=== PATIENT | female | born 1945 | race Caucasian/White ===

== ENCOUNTER 2020-03-10 14:17 | Outpatient (CLI) | payer MEDICARE, SELFPAY ==
--- NOTE | 2020-03-10 | ECHO_ITS ---
Patient Info Name: Lorraine Cedillo Age: 74 years : 1945 Gender: Female Ht: 61 in Wt: 115 lbs BSA: 1.50 m2 HR: 60 bpm BP: 113 / 68 mmHg Heart Rhythm: Sinus Rhythm Technical Quality: Good Exam Date: 03/10/2020 2:42 PM Exam Location: [facility] Pulmonary Patient Status: Outpatient Admit Date: 03/10/2020 Staff Ordering Physician: Wilfredo Mcgee MD Extender: Paulino Delacruz RDCS Attending Provider: Wilfredo Mcgee MD Referring Physician: Arely BENDER; Exam Type: CA echo doppler color flow Study Info Indications R01.1 - Cardiac murmur, unspecified Complete two-dimensional, color flow and Doppler transthoracic echocardiogram is performed. Strain analysis performed. History/Risk Factors Murmur. Summary 1. Left ventricular chamber dimension is normal. 2. Left ventricular systolic function is normal, estimated at 60-65%. 3. The left ventricular diastolic function is normal. 4. E/e' 9 is minimally elevated. 5. Global longitudinal strain is normal at -19.7%. 6. Left atrial chamber dimension is mildly enlarged. 7. There is mild aortic valve sclerosis. 8. There is trace mitral valve regurgitation. 9. There is trace tricuspid valve regurgitation. Left Ventricle E/e' 9 is minimally elevated. Global longitudinal strain is normal at -19.7%. Left ventricular chamber dimension is normal. Left ventricular systolic function is normal, estimated at 60-65%. The left ventricular diastolic function is normal. Right Ventricle Right ventricular chamber dimension is normal. Right ventricular systolic function is normal. Left Atria Left atrial chamber dimension is mildly enlarged. Right Atria Right atrial chamber dimension is normal. Aortic Valve The aortic valve is trileaflet. There is mild aortic valve sclerosis. There is no aortic valve stenosis. There is no aortic valve regurgitation. Pulmonic Valve There is no pulmonic regurgitation. Mitral Valve There is no mitral valve stenosis. There is trace mitral valve regurgitation. Tricuspid Valve There is trace tricuspid valve regurgitation. RVSP is not calculated due to an inadequate TR jet. Pericardium/Pleural There is no pericardial effusion. Inferior Vena Cava Normal inferior vena cava with >50% collapse upon inspiration consistent with normal right atrial pressure, 5 mmHg. Aorta The aortic root size at the sinus of Valsalva is normal. Left Ventricular Outflow Tract Name Value Normal LVOT 2D LVOT Diameter 1.9 cm LVOT Doppler LVOT Peak Gradient 5 mmHg LVOT Mean Gradient 3 mmHg LVOT VTI 26 cm LVOT VTI/AV VTI Ratio 0.6 LVOT Stroke Volume 70 ml LVOT CO 4.4 l/min LVOT CI 2.9 l/min/m2 Mitral Valve Name Value Normal
== END 2020-03-10 14:18 | disposition home or self-care (01) ==
PROVIDERS: PCP Internal Medicine; Visit Provider Internal Medicine
DX: R10.11 Right upper quadrant pain (principal)
CPT/HCPCS: 93306

== ENCOUNTER 2020-07-19 15:16 | Outpatient (CLI) | payer MEDICARE, SELFPAY ==
--- NOTE | ~2020-07-19 | CT_ITS ---
EXAMINATION: CT abdomen pelvis w con EXAM DATE: 07/19/2020 15:13 INDICATION: R10.13 - Epigastric pain . Pancreatic and breast cancer. TECHNIQUE: Spiral CT of the abdomen and pelvis was performed following intravenous injection of 100 m L Omnipaque 350. Axial, coronal and sagittal images were reviewed. The dose-length product (DLP) fo r this examination was 201.72 mGy-cm. The exposure was tailored according to patient size (auto mA e xposure control), and iterative reconstruction (ASIR) was used as additional dose reduction technique . Comparison is made to prior examination from 07/08/2014. 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 There is hepatosplenomegaly with dilated portal vein which cou ld indicate portal hypertension. No portal venous thrombosis. Possible cirrhosis. Spleen is normal in size. There is a pancreatic duct stent. Nonspecific soft tissue density inflammation likely related to patient's pancreatic cancer/treatment. No focal masslike region, no definite recurrence. There are cholecystectomy clips. Portal and splenic veins are patent. Kidneys enhance symmetrically. There is no hydronephrosis. Fibroid uterus. The bladder is unremarkable. There is no retroperitoneal or pelvic lymphadenopathy. There is mild scattered arteriosclerotic disease. The appendix is normal. The stomach and small bowel are unremarkable. There is moderate amount of c olonic stool. There is mild sigmoid colonic diverticulosis. There is no adjacent inflammatory change to suggest diverticulitis. No free intraperitoneal gas. Trace right pleural effusion. Right lower lobe subsegmental atelectasis. The lung bases are unremarkable. There are no osteoblastic or osteo lytic lesions identified. Left hip lag screws. IMPRESSION: 1. Inflammation in mesentery, retroperitoneum could be treatment related change but recommend checki ng amylase/lipase to evaluate possibility of acute pancreatitis. Pancreatic stent in position. 2. Hepatomegaly. Probable portal hypertension and cirrhosis. 3. Right basilar subsegmental atelectasis, trace right pleural effusion. 4. Fibroids. Reviewed, dictated and finalized at location B. 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 Inflammation in mesentery, retroperitoneum could be treatment related sellers e but recommend checking amylase/lipase to evaluate possibility of acute pancre atitis. Pancreatic stent in position. 2. Hepatomegaly. Probable portal hypertension and cirrhosis. 3. Right basilar subsegmental atelectasis, trace right pleural effusion. 4. Fibroids.
[2020-07-19 16:00] LABS: Basophils Percent Auto 0.6 % (0.2-1.2); Eosinophils Absolute Auto 0.2 K/mm3 (0-0.3); Eosinophils Percent Auto 2.4 % (0-4.4); Hematocrit 32.4 % (37.0-47.0); Hemoglobin 10.7 g/dL (12.0-15.0); Immature Granulocyte Absolute 0.02 K/mm3 (0.00-0.031); Immature Granulocyte Percent A 0.3 % (0-0.5); Lymphocytes Absolute Auto 1.01 K/mm3 (0.9-3.2); Lymphocytes Percent Auto 16.3 % (18.3-44.2); Mean Corpuscular Hemoglobin 33.2 pg (26-34); Mean Corpuscular Volume 100.6 fl (80-100); Mean Platelet Volume 10.4 fl (7.4-10.4); Monocytes Absolute Auto 0.6 K/mm3 (0.1-0.6); Neutrophils Absolute Auto 4.4 K/mm3 (1.3-6.7); Neutrophils Percent Auto 71.4 % (45.5-73.1); Platelet Count Result 174 k/mm3 (150-375); Red Blood Count 3.22 M/mm3 (4.2-5.4); White Blood Count 6.2 K/mm3 (4.5-10.0)
[2020-07-19 16:14] LABS: Alanine Aminotransferase 58 U/L (4-35); Albumin Level 3.5 g/dL (3.5-5.1); Alkaline Phosphatase 140 U/L (38-126); Anion Gap 7 mmol/L (8-16); Aspartate Amino Transferase 69 U/L (14-36); Bilirubin,Total 1.7 mg/dL (0.2-1.3); Blood Urea Nitrogen 10 mg/dL (7-17); Carbon Dioxide 30 mmol/L (22-30); Chloride 99 mmol/L (98-107); Estimated Glomerular Filt Rate > 60; Glucose 195 mg/dL (65-105); Potassium 3.5 mmol/L (3.4-5.0); Sodium 136 mmol/L (137-145)
[2020-07-19 16:15] LABS: Add Urine Microscopic? YES; Appearance Urine Clear (Clear); Bilirubin Urine Negative (Negative); Blood Urine Negative (Negative); Color Urine Straw (Yellow); Glucose Urine UA 2+ mg/dL (Negative); Ketones Urine Negative (Negative); Leukocyte Esterase Ur Negative LEU/UL (NEGATIVE); Mucus Urine Rare /lpf; Nitrate Urine Negative (Negative); Protein Urine Negative (Negative); Squamous Epithelial Cell Urine Rare /hpf (Few)
[2020-07-19 16:19] LABS: Specific Grav Ur 1.056 (1.001-1.035)
[2020-07-22 11:38] LABS: Vitamin D 1,25 (OH)2 Total 21 pg/mL (18-72); Vitamin D2 1,25 (OH)2 <8 pg/mL; Vitamin D3 1,25 (OH)2 21 pg/mL
== END 2020-07-19 15:17 | disposition home or self-care (01) ==
PROVIDERS: PCP Internal Medicine; Visit Provider Internal Medicine
DX: R10.13 Epigastric pain (principal); Z79.899 Other long term (current) drug therapy; K43.2 Incisional hernia without obstruction or gangrene; E55.9 Vitamin D deficiency, unspecified; D25.9 Leiomyoma of uterus, unspecified; R16.0 Hepatomegaly, not elsewhere classified
CPT/HCPCS: 36415; 74177; 80053; 81001; 82652; 85025; Q9967

== ENCOUNTER 2021-01-09 07:50 | Observation (INO) | payer MEDICARE, SELFPAY ==
[2021-01-09] VITALS (18 sets, daily range): BP systolic 122–153; BP diastolic 60–92; PULSE 78–106; RESP 14–24; TEMP 36.4–36.8; O2SAT 93–100; BMI 20.7
--- NOTE | ~2021-01-09 | CT_ITS ---
EXAMINATION: CT brain wo con EXAM DATE: 01/09/2021 08:16 INDICATION: Temporary change in awareness. TECHNIQUE: Spiral CT of the head was performed without contrast. Axial, coronal and sagittal images were reviewed. The dose-length product (DLP) for this examination was 908.00 mGy-cm. The exposure w as tailored according to patient size, and iterative reconstruction (ASIR) was used as additional dos e reduction technique. There is no prior study for comparison. FINDINGS: There is no acute intraparenchymal hemorrhage. No evidence of intraparenchymal brain mass lesion. No evidence of acute infarction. Please note that initial head CT has limited sensitivity f or small or acute infarctions. There is mild to moderate periventricular and subcortical hypodensity, nonspecific but probably related to small vessel ischemic disease. There is mild to moderate promi nence of the sulci and ventricles related to cerebral atrophy. There is intracranial carotid arteri osclerosis. There are no extra-axial collections. There is no mass effect or midline shift. Patien t has had bilateral ocular lens surgery. Soft tissue is unremarkable. The visualized sinuses and ma stoid air cells are well aerated. IMPRESSION: 1. No acute intracranial findings. 2. Chronic age related findings. Reviewed, dictated and finalized at location A.
--- NOTE | ~2021-01-09 | XR_ITS ---
EXAMINATION: XR chest 1V EXAM DATE: 01/09/2021 08:21 INDICATION: Shortness of breath. TECHNIQUE: Portable AP frontal chest x-ray was obtained. Comparison is made to prior examination from 08/22/2016. FINDINGS: There is a left-sided portacatheter with intact line. There is ill-defined but large right mid and lower lung zone opacity, most likely pneumonia but please clinically correlate. Recommend one -month follow-up chest x-ray. There are mild bony degenerative changes. There is no pneumothorax susp ected. There are no pleural effusions. There is aortic arteriosclerosis. Cardiomediastinal silhouette is normal. IMPRESSION: Large ill-defined right lung opacity probably developing pneumonia. Clinical correlation and follow-up to resolution indicated. Reviewed, dictated and finalized at location A.
--- NOTE | 2021-01-09 08:00 | ECG_ITS ---
Measurements Intervals [place] Rate: 84 P: 65 PA: 110 QRS: 57 QRSD: 82 T: 13 QT: 375 QTc: 445 Interpretive Statements SINUS RHYTHM WITH SHORT PA INTERVAL ATRIAL AND VENTRICULAR PREMATURE COMPLEXES POSSIBLE LEFT ATRIAL ENLARGEMENT BORDERLINE ST-T WAVE ABNORMALITY- INFERIOR LEADS BASELINE ARTIFACT- II, III, AVF BORDERLINE ECG Electronically Signed On 01-09-2021 10:09:22 CDT by Migel Adams D.O.
[2021-01-09] MEDS: SODIUM CHLORIDE 0.9% IV 1,000 ML 999 ML IV CONT (08:07)
--- NOTE | 2021-01-09 08:21 | ED.GENADULT ---
HPI - General Adult General Chief complaint: Recheck/Abnormal Lab/Rx Stated complaint: unresponsive Time Seen by Provider: 01/09/21 07:51 History of Present Illness HPI narrative: Patient is a 75-year-old female who presents ER with altered mental status. reports that at baseline patient is oriented x3. She went to bed last night and then throughout the night he heard her moaning making noises like she was having a dream. Today he checked on her at 6 AM and she would not wake up he was still making some noises. He splashed water on her face and could not get her to wake up. She denies he cannot get her to the hospital on his own. He then called EMS. Her blood sugar was found to be 18. She was given an infusion of D10 which did get her to wake up but she is still quite altered. Patient can say her name and otherwise appears to be in no distress. She has some coarse lung sounds and had a cough upon arrival. reports she had not had a cough prior to this. Denies any known seizure activity. No previous history of CVA. Related Data Home Medications Medication Instructions Recorded Confirmed biotin 1 mg capsule 1 mg PO DAILY 07/03/19 01/09/21 coenzyme Q10 100 mg capsule 100 mg PO DAILY 07/03/19 01/09/21 latanoprost 0.005 % eye drops 1 drop EACH EYE HS 07/03/19 01/09/21 multivitamin 1 tablet PO DAILY 07/03/19 01/09/21 omega-3 fatty acids 1,000 mg 1,000 mg PO DAILY 07/03/19 01/09/21 capsule lactobacillus combination no.9 4 4,000 cell PO DAILY 02/11/20 01/09/21 billion cell capsule spironolactone 25 mg tablet 25 mg PO BID 02/11/20 01/09/21 turmeric root extract 500 mg 500 mg PO BID 02/11/20 12/29/20 capsule zinc acetate 50 mg (zinc) capsule 50 mg PO DAILY 02/11/20 12/29/20 megestrol 400 mg/10 mL (40 mg/mL) 400 mg PO DAILY 12/29/20 01/09/21 oral suspension diltiazem HCl [Cardizem CD] 120 mg PO DAILY 01/09/21 01/09/21 diphenhydramine HCl 25 mg PO Q6H PRN 01/09/21 01/09/21 ergocalciferol (vitamin D2) 50,000 unit PO WEEKLY 01/09/21 01/09/21 [Vitamin D2] insulin glargine [Lantus Solostar 18 unit SUB-Q DAILY 01/09/21 01/09/21 U-100 Insulin] latanoprost drp 01/09/21 tramadol 100 mg PO Q6H PRN 01/09/21 01/09/21 zinc acetate 50 mg PO BID 01/09/21 01/09/21 Allergies Allergy/AdvReac Type Severity Reaction Status Date / Time ADHESIVE TAPE Allergy Mild Itching Uncoded 01/09/21 07:56 Review of Systems Review of Systems: ROS unobtainable: Yes unobtainable due to medical condition PMFSH Past Medical History Medical History Abdominal pain Benign essential hypertension Bloating Blood infection BMI 20.0-20.9, adult BMI 22.0-22.9, adult Cancer of pancreas Diabetes DM type 2 (diabetes mellitus, type 2) Encounter for Medicare annual wellness exam Encounter for routine adult health examination without abnormal findings Eustachian tube dysfunction Glaucoma Hearing loss Heart murmur Hemoglobin A1c less than 7.0% last a1c was 6. 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 Pancreatic insufficiency Vitamin D deficiency Surgical History Surgical History H/O mastectomy H/O: section Family History Family History Mother Hypertension Family history of diabetes mellitus in first degree relative Diabetes mellitus Father Malignant neoplasm of prostate Social History Social History Smoking status: Never smoker Alcohol intake: never Substance use: never Substance use type: does not use Gender identity (if verbalized by the patient): Female Sexual Orientation (if Verbalized by the Patient): Straight or Heterosexual Spiritual care concerns: No Exam Narrative: Exam Narrative:
[2021-01-09 09:02] LABS: Basophils Percent Auto 0.3 % (0.2-1.2); Hematocrit 32.7 % (37.0-47.0); Hemoglobin 10.8 g/dL (12.0-15.0); Immature Granulocyte Absolute 0.04 K/mm3 (0.00-0.031); Immature Granulocyte Percent A 0.7 % (0-0.5); Lymphocytes Absolute Auto 0.36 K/mm3 (0.9-3.2); Mean Corpuscular Hemoglobin 37.1 pg (26-34); Mean Corpuscular Volume 112.4 fl (80-100); Mean Platelet Volume 10.4 fl (7.4-10.4); Monocytes Absolute Auto 0.3 K/mm3 (0.1-0.6); Monocytes Percent Auto 5.3 % (2.6-8.5); Neutrophils Absolute Auto 5.3 K/mm3 (1.3-6.7); Neutrophils Percent Auto 87.7 % (45.5-73.1); Platelet Count Result 159 k/mm3 (150-375); Red Blood Count 2.91 M/mm3 (4.2-5.4); Red Cell Distribution Width 15.1 % (11.5-14.5)
[2021-01-09 09:10] LABS: Add Urine Microscopic? YES; Appearance Urine Clear (Clear); Bacteria Urine Trace /hpf; Bilirubin Urine Negative (Negative); Blood Urine Negative (Negative); Color Urine Yellow (Yellow); Glucose Urine UA 1+ mg/dL (Negative); Ketones Urine Negative (Negative); Leukocyte Esterase Ur Negative LEU/UL (Negative); Mucus Urine Rare /lpf; Nitrate Urine Negative (Negative); Protein Urine Negative (Negative); RBC Urine 0-2 /hpf (0-2); Specific Grav Ur 1.008 (1.001-1.035); Squamous Epithelial Cell Urine Few /hpf (Few); Urobilinogen Urine Negative mg/dL (<2.0); WBC Urine 0-3 /hpf
[2021-01-09 09:11] LABS: Lactic Acid Reflex 1.2 mmol/L (0.7-2.1)
[2021-01-09 09:23] LABS: Troponin I 0.021 ng/mL (0.000-0.034)
[2021-01-09 09:34] LABS: Anion Gap 7 mmol/L (8-16); Blood Urea Nitrogen 6 mg/dL (7-17); Calcium 9.1 mg/dL (8.4-10.2); Carbon Dioxide 27 mmol/L (22-30); Chloride 103 mmol/L (98-107); Estimated CRCL calculation 45 ml/min; Estimated Glomerular Filt Rate > 60; Glucose 130 mg/dL (65-105); Sodium 137 mmol/L (137-145)
[2021-01-09 09:47] LABS: Glucose Point of Care 107 mg/dl (65-105)
[2021-01-09 10:05] LABS: Creatine Kinase 27 U/L (30-135)
[2021-01-09 11:20] LABS: Glucose Point of Care 170 mg/dl (65-105)
--- NOTE | 2021-01-09 11:53 | ADMGEN ---
This patient, Lorraine Cedillo, was admitted to Medical Room 346-01. Patient/family oriented to hospital policies and general routines including ID bracelet, bed and alarms, visiting hours, pain management, procedures, bathroom and other care routines, personal items, smoking policy, room service/diet, and visiting hours. Information on how to activate the Rapid Response Team has been discussed. Patient/Family are encouraged to report perceived risks to care and to ask questions if they do not understand what they are told or what they should do. Patient in bed with no complaints at this time. Will continue to monitor patient.
--- NOTE | 2021-01-09 17:47 | PM.IMHP ---
H&P: HPI History of Present Illness Date/Time: 01/09/21 17:00 Chief Complaint: Unresponsive. Narrative: This is a 75-year-old female with PMFSH Past Medical History Medical History Abdominal pain Benign essential hypertension Bloating Blood infection BMI 20.0-20.9, adult BMI 22.0-22.9, adult Cancer of pancreas Diabetes DM type 2 (diabetes mellitus, type 2) Encounter for Medicare annual wellness exam Encounter for routine adult health examination without abnormal findings Eustachian tube dysfunction Glaucoma Hearing loss Heart murmur Hemoglobin A1c less than 7.0% last a1c was 6. 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 Pancreatic insufficiency Vitamin D deficiency Surgical History Surgical History H/O mastectomy H/O: section Family History Family History Mother Hypertension Family history of diabetes mellitus in first degree relative Diabetes mellitus Father Malignant neoplasm of prostate Social History Social History Smoking status: Never smoker Alcohol intake: never Substance use: never Substance use type: does not use Gender identity (if verbalized by the patient): Female Sexual Orientation (if Verbalized by the Patient): Straight or Heterosexual Spiritual care concerns: No Meds Home Medications and Allergies Home Medications Medication Instructions Recorded Confirmed Type biotin 1 mg capsule 1 mg PO DAILY 07/03/19 01/09/21 History coenzyme Q10 100 mg capsule 100 mg PO DAILY 07/03/19 01/09/21 History latanoprost 0.005 % eye drops 1 drop EACH EYE HS 07/03/19 01/09/21 History multivitamin 1 tablet PO DAILY 07/03/19 01/09/21 History omega-3 fatty acids 1,000 mg 1,000 mg PO DAILY 07/03/19 01/09/21 History capsule blood sugar diagnostic #100 each 11/10/19 12/29/20 Rx lactobacillus combination no.9 4 4,000 cell PO DAILY 02/11/20 01/09/21 History billion cell capsule spironolactone 25 mg tablet 25 mg PO BID 02/11/20 01/09/21 History turmeric root extract 500 mg 500 mg PO BID 02/11/20 12/29/20 History capsule zinc acetate 50 mg (zinc) capsule 50 mg PO DAILY 02/11/20 12/29/20 History lancets 33 gauge #100 ea 06/14/20 12/29/20 Rx pen needle, diabetic 32 gauge x #100 each 09/14/20 12/29/20 Rx 1/4 duloxetine 60 mg capsule,delayed 60 mg PO DAILY #90 cap 11/23/20 01/09/21 Rx release zolpidem 10 mg tablet 10 mg PO .COMPLEX PRN #30 tablet 12/01/20 01/09/21 Rx megestrol 400 mg/10 mL (40 mg/mL) 400 mg PO DAILY 12/29/20 01/09/21 History oral suspension diltiazem HCl [Cardizem CD] 120 mg PO DAILY 01/09/21 01/09/21 History diphenhydramine HCl 25 mg PO Q6H PRN 01/09/21 01/09/21 History ergocalciferol (vitamin D2) 50,000 unit PO WEEKLY 01/09/21 01/09/21 History [Vitamin D2] insulin glargine [Lantus Solostar 18 unit SUB-Q DAILY 01/09/21 01/09/21 History U-100 Insulin] latanoprost drp 01/09/21 History tramadol 100 mg PO Q6H PRN 01/09/21 01/09/21 History zinc acetate 50 mg PO BID 01/09/21 01/09/21 History Allergies Allergy/AdvReac Type Severity Reaction Status Date / Time ADHESIVE TAPE Allergy Mild Itching Uncoded 01/09/21 07:56 Vital Signs Vital Signs - 24 hr 01/09/21 07:48 01/09/21 07:56 01/09/21 07:58 Temperature 98.0 F Pulse Rate 86 81 82 Respiratory Rate 20 24 H 20 Blood Pressure 137/78 Pulse Oximetry 99 93 97 01/09/21 08:31 01/09/21 08:32 01/09/21 08:45 Temperature Pulse Rate 78 82 88 Respiratory Rate 23 H 19 23 H Blood Pressure 137/65 Pulse Oximetry 01/09/21 08:46 01/09/21 09:00 01/09/21 09:15 Temperature Pulse Rate 91 84 87 Respiratory Rate 18 20 20 Blood Pressure 138/92 H Pulse Oximetry 01/09/21
[2021-01-09 17:59] LABS: Glucose Point of Care 172 mg/dl (65-105)
[2021-01-09 18:35] LABS: Hemoglobin A1C 5.2 % (<5.7)
[2021-01-09] MEDS: LATANOPROST 0.005% OP SOLN 2.5 ML BTL 1 DROP EACH EYE (21:57)
[2021-01-09] MEDS: CENTRAL LINE FLUSH 10 ML IV PUSH (22:16)
--- NOTE | 2021-01-09 22:24 | PM.IMHP ---
H&P: HPI History of Present Illness Date/Time: 01/09/21 22:24 Chief Complaint: Altered mental status Narrative: This is a 75-year-old female with past medical history significant for pancreatic cancer she has been on remission for the last 6 years, type 2 diabetes mellitus. According to patient she has been doing well she has been in her usual state of health up until she went to bed last night according to she was making moaning noises all night in her sleep and in the morning she could not wake up he had a hard time waking her up and called EMS patient was found to have a low blood glucose she was given D10 and she was brought to the emergency room. Preliminary workup was significant for chest x-ray with lung infiltrates primarily of the right long at the mid lobe patient denies any shortness of breath cough sputum production fevers chills rigors nausea vomiting diarrhea dizziness general malaise pains and aches pain or burning with urination she has been eating and drinking her usual. At the time of my visit patient denies any discomfort however she does not have any recollection of above facts. Review of Systems Review of Systems: ROS unobtainable: Yes unobtainable due to medical condition PMFSH Past Medical History Medical History Abdominal pain Benign essential hypertension Bloating Blood infection BMI 20.0-20.9, adult BMI 22.0-22.9, adult Cancer of pancreas Diabetes DM type 2 (diabetes mellitus, type 2) Encounter for Medicare annual wellness exam Encounter for routine adult health examination without abnormal findings Eustachian tube dysfunction Glaucoma Hearing loss Heart murmur Hemoglobin A1c less than 7.0% last a1c was 6. 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 Pancreatic insufficiency Vitamin D deficiency Surgical History Surgical History H/O mastectomy H/O: section Family History Family History Mother Hypertension Family history of diabetes mellitus in first degree relative Diabetes mellitus Father Malignant neoplasm of prostate Social History Social History Smoking status: Never smoker Alcohol intake: never Substance use: never Substance use type: does not use Gender identity (if verbalized by the patient): Female Sexual Orientation (if Verbalized by the Patient): Straight or Heterosexual Spiritual care concerns: No Meds Home Medications and Allergies Home Medications Medication Instructions Recorded Confirmed Type biotin 1 mg capsule 1 mg PO DAILY 07/03/19 01/09/21 History coenzyme Q10 100 mg capsule 100 mg PO DAILY 07/03/19 01/09/21 History latanoprost 0.005 % eye drops 1 drop EACH EYE HS 07/03/19 01/09/21 History multivitamin 1 tablet PO DAILY 07/03/19 01/09/21 History omega-3 fatty acids 1,000 mg 1,000 mg PO DAILY 07/03/19 01/09/21 History capsule blood sugar diagnostic #100 each 11/10/19 01/09/21 Rx lactobacillus combination no.9 4 4,000 cell PO DAILY 02/11/20 01/09/21 History billion cell capsule spironolactone 25 mg tablet 25 mg PO BID 02/11/20 01/09/21 History lancets 33 gauge #100 ea 06/14/20 01/09/21 Rx pen needle, diabetic 32 gauge x #100 each 09/14/20 01/09/21 Rx 1/4 duloxetine 60 mg capsule,delayed 60 mg PO DAILY #90 cap 11/23/20 01/09/21 Rx release zolpidem 10 mg tablet 10 mg PO .COMPLEX PRN #30 tablet 12/01/20 01/09/21 Rx megestrol 400 mg/10 mL (40 mg/mL) 400 mg PO DAILY 12/29/20 01/09/21 History oral suspension diltiazem HCl [Cardizem CD] 120 mg PO DAILY 01/09/21 01/09/21 History diphenhydramine HCl 25 mg PO Q6H PRN 01/09/21 01/09/21 History ergocalciferol (vitamin D2) 50,000 unit PO WEEKLY 01/09/21 01/09/21 History [Becca
[2021-01-10] VITALS (7 sets, daily range): BP systolic 101–134; BP diastolic 45–73; PULSE 86–95; RESP 16–18; TEMP 36–36.6; O2SAT 97–100
[2021-01-10] MEDS: traMADol HCL (*CRX) 50 MG TABLET 100 MG PO ×2 (00:01→09:08)
[2021-01-10 00:15] LABS: Glucose Point of Care 121 mg/dl (65-105)
[2021-01-10 05:53] LABS: Glucose Point of Care 110 mg/dl (65-105)
[2021-01-10] MEDS: CENTRAL LINE FLUSH 10 ML IV PUSH ×3 (05:59→21:32)
[2021-01-10] MEDS: SPIRONOLACTONE 25 MG TABLET PO ×2 (09:11→16:48)
[2021-01-10] MEDS: MEGESTROL ACETATE (*CHEMO) ORAL SUSP 40 MG/ML SYR 400 MG PO (09:11)
[2021-01-10] MEDS: ACIDOPHILUS/BULGARICUS CHEWABLE TABLET 1 TABLET PO (09:11)
[2021-01-10] MEDS: DULoxetine HCL 60 MG CAPSULE.DR PO (09:12)
[2021-01-10 11:51] LABS: Glucose Point of Care 156 mg/dl (65-105)
--- NOTE | 2021-01-10 15:17 | PM.IMPN ---
Progress Note: A&P Assessment and Plan (1) Pneumonia: Code(s): J18.9 - Pneumonia, unspecified organism Status: Acute Assessment and Plan: Patient has been started on Rocephin and Zithromax Await cultures (2) Metabolic encephalopathy: Code(s): G93.41 - Metabolic encephalopathy Status: Resolved (3) Hypoglycemia: Code(s): E16.2 - Hypoglycemia, unspecified Status: Acute Assessment and Plan: Holding insulin Continue to monitor Supportive care (4) History of pancreatic cancer: Code(s): Z85.07 - Personal history of malignant neoplasm of pancreas Status: Acute Assessment and Plan: In remission at regular outpatient apts with dr coffey (5) DM type 2 (diabetes mellitus, type 2): Qualifiers: Diabetes mellitus assisted insulin use: with intermediate manager use Diabetes mellitus complication status: without complication Qualified Code(s): E11.9 - Type 2 diabetes mellitus without complications; Z79.4 - manager terminal (current) use of insulin Code(s): E11.9 - Type 2 diabetes mellitus without complications Status: Acute Assessment and Plan: Continue to monitor Patient with hypoglycemic episode Holding insulin currently Accu-Cheks AC and HS (6) Benign essential hypertension: Code(s): I10 - Essential (primary) hypertension Status: Acute Assessment and Plan: Resume home meds Continue to monitor Subjective Date/time seen: 01/10/21 15:17 Interval history: 75-year-old female with past medical history significant for pancreatic cancer she has been on remission for the last 6 years, type 2 diabetes mellitus.admitted altered appears coherent today mild sob no cough Review of Systems Review of Systems: All systems reviewed & are unremarkable except as noted in HPI and below Exam Const: General: comfortable, no acute distress, well developed, alert and awake Nutritional Appearance: average body habitus Orientation/consciousness: patient oriented x3 Resp: Effort & Inspection: normal respiratory effort and able to speak in complete sentences Auscultation: clear to auscultation bilaterally Cardio: Jugular venous distension: no JVD Rate: regular rate Rhythm: regular rhythm Heart sounds: S1 normal heart sound present and S2 normal heart sound present Skin: Rashes: no rashes Wounds: no wounds Neuro: General: patient oriented x3 and CN's II-XI intact bilaterally Cranial nerves: Yes CN's II-XII intact bilaterally and Yes Equal, round and reactive pupils present Cognition (Neuro): normal cognition Speech: normal speech Gait exam (Neuro): Normal gait present Motor exam (neuro): 5/5 motor strength present throughout Extrem: General: normal to inspection, full ROM, no joint enlargement and no pedal edema Objective Data Vital Signs Vital Signs: Vital Signs - 24 hr 01/09/21 16:00 01/09/21 17:42 01/09/21 20:00 Temperature 36.8 C 36.8 C 36.6 C Pulse Rate 100 100 106 H Respiratory Rate 14 14 18 Blood Pressure 122/62 122/62 129/63 Pulse Oximetry 99 99 98 01/10/21 00:20 01/10/21 04:36 01/10/21 09:01 Temperature 36.6 C 36.6 C Pulse Rate 92 95 Respiratory Rate 18 18 Blood Pressure 132/73 112/59 L Pulse Oximetry 98 100 100 01/10/21 11:25 Temperature 36.0 C L Pulse Rate 86 Respiratory Rate 16 Blood Pressure 134/72 Pulse Oximetry 99 Intake/Output Intake/Output: Intake & Output 01/07/21 01/08/21 01/09/21 01/10/21 23:59 23:59 23:59 23:59 Intake Total 1960 980 Output Total 650 175 Balance 1310 805 Meds/Results Medications: Active Medications Generic Name Dose Route Start Last Admin Trade Name Freq PRN Reason Stop Dose Admin Dextrose 12.5 gm 01/09/21 17:47 Dextrose 50% 25 Gm/50 Ml Syringe IV PUSH PRN PRN Hypoglycemia Protocol Diltiazem HCl 120 mg 01/10/21 09:00 01/10/21 09:10 Diltiazem Hcl Cd 120 Mg Cap.Sa.24h PO 120 mg DAILY [id number] Administration Dul
[2021-01-10 16:40] LABS: Glucose Point of Care 90 mg/dl (65-105)
[2021-01-10] MEDS: LATANOPROST 0.005% OP SOLN 2.5 ML BTL 1 DROP EACH EYE (20:23)
[2021-01-10 20:33] LABS: Glucose Point of Care 137 mg/dl (65-105)
[2021-01-11 05:02] VITALS: BP 104/47; PULSE 77; RESP 16; TEMP 36; O2SAT 96
[2021-01-11] MEDS: CENTRAL LINE FLUSH 10 ML IV PUSH ×2 (05:31→13:14)
[2021-01-11] MEDS: MEGESTROL ACETATE (*CHEMO) ORAL SUSP 40 MG/ML SYR 400 MG PO (08:04)
[2021-01-11] MEDS: ACIDOPHILUS/BULGARICUS CHEWABLE TABLET 1 TABLET PO (08:04)
[2021-01-11 08:05] VITALS: BP 121/62; PULSE 90
[2021-01-11] MEDS: SPIRONOLACTONE 25 MG TABLET PO (08:05)
[2021-01-11] MEDS: DULoxetine HCL 60 MG CAPSULE.DR PO (08:05)
[2021-01-11 08:32] LABS: Glucose Point of Care 82 mg/dl (65-105)
[2021-01-11 11:44] LABS: Glucose Point of Care 155 mg/dl (65-105)
[2021-01-11 12:22] LABS: Anion Gap 7 mmol/L (8-16); Blood Urea Nitrogen 3 mg/dL (7-17); Calcium 8.1 mg/dL (8.4-10.2); Carbon Dioxide 25 mmol/L (22-30); Chloride 104 mmol/L (98-107); Estimated CRCL calculation 54 ml/min; Estimated Glomerular Filt Rate > 60; Glucose 140 mg/dL (65-105); Sodium 136 mmol/L (137-145)
--- NOTE | 2021-01-11 13:18 | PM.DS ---
DS: Admitting Diagnosis Admitting Diagnosis Admitting Diagnosis: Altered mental status DS: Discharge Diagnosis Discharge Diagnosis (1) Pneumonia: Code(s): J18.9 - Pneumonia, unspecified organism Status: Acute Assessment and Plan: Patient has been started on Rocephin and Zithromax Cultures are negative so far continue zithromax for 7 days and rpt cxr in 2 weeks time (2) Metabolic encephalopathy: Code(s): G93.41 - Metabolic encephalopathy Status: Resolved (3) Hypoglycemia: Code(s): E16.2 - Hypoglycemia, unspecified Status: Resolved Assessment and Plan: Continue DM medications as before (4) History of pancreatic cancer: Code(s): Z85.07 - Personal history of malignant neoplasm of pancreas Status: Acute Assessment and Plan: In remission at regular outpatient apts with dr coffey (5) DM type 2 (diabetes mellitus, type 2): Qualifiers: Diabetes mellitus 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 Diabetes mellitus complication status: without complication Qualified Code(s): E11.9 - Type 2 diabetes mellitus without complications; 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 Pt appears much better now ater iv rocephin and zithromax transition to oral zpac and dc with follow up Time Spent with Patient Time attestation: Total time spent providing and/or coordinating discharge services:40 minutes on day of discharge Exam Const: General: comfortable, no acute distress, well developed, alert and awake Nutritional Appearance: average body habitus Orientation/consciousness: patient oriented x3 Eyes: Pupils: Equal, round and reactive pupils present Resp: Effort & Inspection: normal respiratory effort and able to speak in complete sentences Auscultation: clear to auscultation bilaterally Cardio: Jugular venous distension: no JVD Rate: regular rate Rhythm: regular rhythm Heart sounds: S1 normal heart sound present and S2 normal heart sound present Skin: Rashes: no rashes Wounds: no wounds Neuro: General: patient oriented x3 and CN's II-XI intact bilaterally Cranial nerves: Yes CN's II-XII intact bilaterally and Yes Equal, round and reactive pupils present Cognition (Neuro): normal cognition Speech: normal speech Gait exam (Neuro): Normal gait present Motor exam (neuro): 5/5 motor strength present throughout Extrem: General: normal to inspection, full ROM, no joint enlargement and no pedal edema DS: Data Data Completed and Pending Labs on day of discharge: Labs from last 24 hours 01/11/21 01/11/21 01/11/21 11:48 11:42 08:00 Sodium 136 L Potassium 3.0 L Chloride 104 Carbon Dioxide 25 Anion Gap 7 L BUN 3 L Creatinine 0.60 L Estim Creat Clear Calc 54 Estimated GFR > 60 Glucose 140 H POC Capillary Glucose 155 H 82 Calcium 8.1 L 01/10/21 01/10/21 20:21 16:37 Sodium Potassium Chloride Carbon Dioxide Anion Gap BUN Creatinine Estim Creat Clear Calc Estimated GFR Glucose POC Capillary Glucose 137 H 90 Calcium Preliminary micro results at discharge 01/09/21 09:34 Blood Culture - Preliminary Blood 01/09/21 09:34 Blood Culture - Preliminary Blood Discharge Plan Discharge Attending physician on discharge: Dinorah Presley Discharging Clinician: Dinorah Presley Anticipated Discharge Date/Time:
[2021-01-11] MEDS: POTASSIUM CHLORIDE 20 MEQ PACKET (FOR LIQUID) 40 MEQ PO (13:48)
[2021-01-11] MEDS: HEPARIN SOD FLUSH 500 UNITS/5 ML SYRINGE IV PUSH (14:16)
[2021-01-12 10:19] LABS: Glucose Point of Care 132 mg/dl (65-105)
== END 2021-01-11 15:00 | disposition home or self-care (01) ==
LOC: ANHED 08:05 → ANH3MED 11:18
PROVIDERS: Physician Assistant; Admitting Provider Internal Medicine; Emergency Provider Emergency Medicine; PCP Internal Medicine; Visit Provider Family Medicine
DX: J18.9 Pneumonia, unspecified organism (principal); G93.41 Metabolic encephalopathy; E11.9 Type 2 diabetes mellitus without complications; I10 Essential (primary) hypertension; Z85.07 Personal history of malignant neoplasm of pancreas; Z79.4 Long term (current) use of insulin
CPT/HCPCS: 36415; 51701; 70450; 71045; 80048; 81001; 82550; 82948; 83036; 83605; 84484; 85025; 87040; 93005; 96361; 96365; 96366; 96368; 99285; A9270; G0378; J0456; J0696; J1642; J7030

== ENCOUNTER 2021-04-05 12:05 | Outpatient (CLI) | payer MEDICARE, SELFPAY ==
[2021-04-05 12:33] LABS: Basophils Absolute Auto 0.1 K/mm3 (0.0-0.1); Basophils Percent Auto 1.1 % (0.2-1.2); Eosinophils Absolute Auto 0.3 K/mm3 (0-0.3); Eosinophils Percent Auto 3.8 % (0-4.4); Hematocrit 29.7 % (37.0-47.0); Hemoglobin 9.4 g/dL (12.0-15.0); Immature Granulocyte Absolute 0.02 K/mm3 (0.00-0.031); Immature Granulocyte Percent A 0.3 % (0-0.5); Lymphocytes Absolute Auto 1.14 K/mm3 (0.9-3.2); Mean Corpuscular HGB Conc 31.6 g/dl (32-36); Mean Corpuscular Volume 113.8 fl (80-100); Mean Platelet Volume 11.2 fl (7.4-10.4); Monocytes Absolute Auto 0.6 K/mm3 (0.1-0.6); Monocytes Percent Auto 7.2 % (2.6-8.5); Neutrophils Absolute Auto 5.5 K/mm3 (1.3-6.7); Neutrophils Percent Auto 72.6 % (45.5-73.1); Platelet Count Result 171 k/mm3 (150-375); Red Blood Count 2.61 M/mm3 (4.2-5.4); White Blood Count 7.6 K/mm3 (4.5-10.0)
== END 2021-04-05 12:06 | disposition home or self-care (01) ==
PROVIDERS: PCP Internal Medicine; Visit Provider Internal Medicine Medical Oncology
DX: C25.0 Malignant neoplasm of head of pancreas (principal)
CPT/HCPCS: 36415; 85025

== ENCOUNTER → 2021-04-08 15:14 | Outpatient (CLI) | payer MEDICARE, SELFPAY ==
--- NOTE | ~2021-04-08 | XR_ITS ---
EXAMINATION: XR chest 2V DATE: 04/08/2021 15:31 INDICATION: Heart failure, swelling of the extremities TECHNIQUE: PA and lateral views of the chest are obtained. COMPARISON: 01/09/2021 FINDINGS: There are small pleural effusions. No pneumothorax is identified. There are airspace opacit ies of the right lung base. Opacities of the right midlung zone have resolved. The heart size is norm al. A nodular opacity projecting over the left lung base is felt to reflect the left nipple. A left s ubclavian Port-A-Cath ends with its tip in the midsuperior vena cava. Surgical clips in the right upp er quadrant are likely from prior cholecystectomy. There are changes of right mastectomy with implant reconstruction. IMPRESSION: 1. Right basilar airspace opacity, consistent with atelectasis versus pneumonia. 2. Small pleural effusions. Reviewed, dictated and finalized at location [facility]. IMPRESSION: 1. Right basilar airspace opacity, consistent with atelectasis versus pneumonia . 2. Small pleural effusions.
== END ==
PROVIDERS: PCP Internal Medicine; Visit Provider Internal Medicine
DX: J90 Pleural effusion, not elsewhere classified (principal); R91.8 Other nonspecific abnormal finding of lung field; I50.9 Heart failure, unspecified; R06.02 Shortness of breath; Z86.711 Personal history of pulmonary embolism
CPT/HCPCS: 71046

== ENCOUNTER 2021-04-12 17:23 | Outpatient (CLI) | payer MEDICARE, SELFPAY ==
--- NOTE | ~2021-04-12 | CT_ITS ---
EXAMINATION: CT brain wo con DATE: 04/12/2021 17:42 INDICATION: Fall on stairs. Head injury. Patient is on anticoagulant therapy. TECHNIQUE: Computed tomography (CT) of the head was performed without intravenous contrast. The mA wa s adjusted according to patient size. Iterative reconstruction technique was employed. Exam dose: 60 5.33 mGy-cm total exam DLP. COMPARISON: 01/09/2021 CT brain FINDINGS: Small chronic lacunar infarct of right basal ganglia; otherwise no intracranial mass lesion or hemorrhage or cerebrovascular accident is evident. No midline shift or mass effect effect. There is nonspecific diminished attenuation of the cerebral white matter, likely due to chronic small vessel ischemic changes. There are carotid siphon internal carotid artery calcifications. There is moderate cerebral and cerebellar volume loss. No subdural or epidural hematoma is detected. No fracture or bone destruction of the cranial vault. The included paranasal sinuses and mastoid air cells are unremarkable. IMPRESSION: Small chronic lacunar infarct of right basal ganglia Cerebral atherosclerosis and chronic small vessel ischemic changes of the cerebral white matter No acute intracranial finding or hemorrhage Reviewed, dictated and finalized at [facility]. Reviewed, dictated and finalized at location A. IMPRESSION: Small chronic lacunar infarct of right basal ganglia Cerebral atherosclerosis and chronic small vessel ischemic changes of the cereb ral white matter No acute intracranial finding or hemorrhage
== END 2021-04-12 17:24 | disposition home or self-care (01) ==
LOC: ANHIMG 17:28
PROVIDERS: PCP Internal Medicine; Visit Provider Internal Medicine
DX: T14.8XXA Other injury of unspecified body region, initial encounter (principal); W10.9XXA Fall (on) (from) unspecified stairs and steps, initial encounter; I63.81 Other cerebral infarction due to occlusion or stenosis of small artery; I67.2 Cerebral atherosclerosis
CPT/HCPCS: 70450

== ENCOUNTER 2021-05-27 12:26 | Inpatient (IN) | payer MEDICARE, SELFPAY ==
--- NOTE | ~2021-05-27 | XR_ITS ---
EXAMINATION: XR chest 2V DATE: 05/27/2021 17:20 INDICATION: Altered mental status. TECHNIQUE: Frontal and lateral views of the chest were obtained. COMPARISON: Chest single view 01/09/2021, CT abdomen and pelvis 05/27/2021 FINDINGS: There is a small right pleural effusion. There are airspace opacities in right mid and lowe r lung zones and left lower lung zone. No pneumothorax. The heart size is normal. There is a left jillian st port with tip at superior cavoatrial junction. There is a right breast implant. IMPRESSION: 1. Small right pleural effusion. 2. Airspace opacities in right mid and lower lung zones and left lower lung zone, likely atelectasis. Reviewed, dictated and finalized at location A. IMPRESSION: 1. Small right pleural effusion. 2. Airspace opacities in right mid and lower lung zones and left lower lung zon e, likely atelectasis.
--- NOTE | ~2021-05-27 | CT_ITS ---
EXAMINATION: CT abdomen pelvis w con DATE: 05/27/2021 17:14 INDICATION: Pancreatic cancer. Elevated white blood cell count. Confusion. TECHNIQUE: Computed tomography (CT) of the abdomen and pelvis was performed with 100 cc Omnipaque 350 intravenous contrast. The dose-length product was 203.01 mGy-cm. Automated exposure control and iter ative reconstruction technique were employed. COMPARISON: CT dated 07/19/2020. FINDINGS: There is right basilar airspace disease, suspicious for pneumonia. Small right pleural effu johnathon. Borderline heart size. There are surgical changes suggesting previous Whipple procedure. There are cholecystectomy clips. There is a probable pancreatic stent present. There are abnormal number an d size of mesenteric lymph nodes which are not significantly changed. There is diffuse mesenteric margarito ma. There is fluid in the endometrium which is thickened. There are multiple fluid-filled small bowel loops with air-fluid levels, most likely ileus. Moderate colonic fecal loading. There is cirrhosis o f the liver. The spleen and left adrenal gland are unremarkable. There is a 2.1 x 1.6 cm right adrena l mass. There is a prominent left renal parapelvic cysts. There are calcified uterine fibroids. Moder ate-severe lumbar spondylosis. IMPRESSION: 1. Right basilar airspace disease, suspicious for pneumonia. Small right pleural effusion. 2: Postoperative changes in the upper abdomen suggesting previous Whipple procedure. 3: Stable mildly enlarged mesenteric lymph nodes, nonspecific. Mild diffuse mesenteric edema. 4: Multiple distended small bowel loops with air-fluid levels, most likely ileus. 5: Cirrhosis of the liver. 6: Right adrenal mass measuring 2.1 cm, increased compared with 1.8 cm on prior study. Cannot exclud e metastatic disease. Reviewed, dictated and finalized at location A. IMPRESSION: 1. Right basilar airspace disease, suspicious for pneumonia. Small right pleura l effusion. 2: Postoperative changes in the upper abdomen suggesting previous Whipple proc edure. 3: Stable mildly enlarged mesenteric lymph nodes, nonspecific. Mild diffuse me senteric edema. 4: Multiple distended small bowel loops with air-fluid levels, most likely ileu s. 5: Cirrhosis of the liver. 6: Right adrenal mass measuring 2.1 cm, increased compared with 1.8 cm on prio r study. Cannot exclude metastatic disease.
--- NOTE | ~2021-05-27 | XR_ITS ---
EXAMINATION: XR chest 1V portable DATE: 06/01/2021 06:01 INDICATION: Respiratory failure TECHNIQUE: frontal view of the chest was obtained. COMPARISON: Chest radiograph dated 05/31/2021 FINDINGS: No significant change in patchy regions of consolidation scattered throughout the left lung and in th e left mid and lower lung zones. No pleural effusion or pneumothorax. Cardiomegaly. Left subclavian c entral venous port catheter with distal tip at the caudal superior vena cava. IMPRESSION: 1. Unchanged left-sided predominant bilateral lung disease consistent with multifocal pneumonia. Reviewed, dictated and finalized at location A. IMPRESSION: 1. Unchanged left-sided predominant bilateral lung disease consistent with mult ifocal pneumonia.
--- NOTE | ~2021-05-27 | XR_ITS ---
EXAMINATION: XR chest 1V portable DATE: 06/03/2021 05:42 INDICATION: Respiratory failure TECHNIQUE: frontal view of the chest was obtained. COMPARISON: Chest radiograph dated 06/02/2021 FINDINGS: Endotracheal tube tip 5.7 cm above the pedro. Nasogastric tube extends below the left hemidiaphragm with distal tip collimated off the study. Left subclavian central venous port catheter with distal t ip at the caudal superior vena cava. Diffuse patchy airspace opacities throughout both lungs with interval progression in the right lung. Small right pleural effusion. No pneumothorax. Intimately. Cholecystectomy clips in right upper quadr ant. Pancreatic duct stent in the upper abdomen. Right breast implant. IMPRESSION: 1. Diffuse patchy bilateral lung disease consistent with pneumonia with some worsening in the right l stacey are 2. Small right pleural effusion. 3. Cardiomegaly. Reviewed, dictated and finalized at location A. IMPRESSION: 1. Diffuse patchy bilateral lung disease consistent with pneumonia with some wo rsening in the right lung are 2. Small right pleural effusion. 3. Cardiomegaly.
--- NOTE | ~2021-05-27 | XR_ITS ---
EXAMINATION: XR chest 1V portable DATE: 06/04/2021 05:53 INDICATION: Respiratory failure TECHNIQUE: frontal view of the chest was obtained. COMPARISON: Chest radiograph dated 06/03/2021 FINDINGS: Endotracheal tube tip 5.3 cm above the pedro. Nasogastric tube extends below the left hemidiaphragm with distal tip collimated off the study. Left subclavian central venous port catheter with distal t ip at the caudal superior vena cava. Slight decrease in extensive bilateral patchy airspace opacities. Small bilateral pleural effusions. No pneumothorax. The cardiomediastinal silhouette is normal. Cholecystectomy clips in right upper emilio drant. Pancreatic stent projecting over the mid upper abdomen. IMPRESSION: 1. Slight improvement in diffuse patchy bilateral lung disease consistent with pneumonia and/or pulmo nary edema. 2. Small bilateral pleural effusions. Reviewed, dictated and finalized at location A. IMPRESSION: 1. Slight improvement in diffuse patchy bilateral lung disease consistent with pneumonia and/or pulmonary edema. 2. Small bilateral pleural effusions.
--- NOTE | ~2021-05-27 | XR_ITS ---
EXAMINATION: XR chest 1V portable DATE: 06/02/2021 06:05 INDICATION: Respiratory failure TECHNIQUE: frontal view of the chest was obtained. COMPARISON: Chest radiograph dated 06/01/2021 FINDINGS: Interval increase in density of extensive patchy perihilar predominant airspace opacities throughout both lungs consistent with worsening pneumonia. Small right pleural effusion. No pneumothorax. Cardio megaly. Left subclavian central venous port catheter with distal tip at the caudal superior vena cava . Cholecystectomy clips in right upper quadrant. Pancreatic duct stent in the upper abdomen. Right br east implant. IMPRESSION: 1. Increasing consolidation throughout both lungs consistent with worsening pneumonia. 2. Small right pleural effusion. 3. Cardiomegaly. Reviewed, dictated and finalized at location A. IMPRESSION: 1. Increasing consolidation throughout both lungs consistent with worsening pne umonia. 2. Small right pleural effusion. 3. Cardiomegaly.
--- NOTE | ~2021-05-27 | US_ITS ---
EXAMINATION: US pelvic complete EXAM DATE: 06/01/2021 13:03 INDICATION: Vaginal bleeding. TECHNIQUE: Pelvic transabdominal sonogram was performed. There are multiple grayscale and Doppler im ages available for interpretation. Correlation is made to CT abdomen pelvis 05/31/2021. FINDINGS: Uterus measures 11.5 x 4.6 x 5.5 cm, with multiple calcified fibroids up to 2.7 cm in size . There is endometrial fluid, thickening up to 14 mm including the intraluminal fluid component. Diff erential diagnosis includes endometrial hyperplasia, polyp, cancer. There is no free pelvic fluid. Right adnexa: The ovary is not identified. There is no adnexal mass. Left adnexa: The ovary is not identified. There is no adnexal mass. IMPRESSION: 1. Endometrial fluid, thickening, differential diagnosis including hyperplasia, polyp, cancer. 2. Multiple calcified fibroids. Reviewed, dictated and finalized at location A. IMPRESSION: 1. Endometrial fluid, thickening, differential diagnosis including hyperplasia , polyp, cancer. 2. Multiple calcified fibroids.
--- NOTE | ~2021-05-27 | CT_ITS ---
EXAMINATION: CT brain wo con DATE: 05/27/2021 17:12 INDICATION: Confusion TECHNIQUE: Computed tomography (CT) of the head was performed without intravenous contrast. The dose- length product was 605.33 mGy-cm. Automated exposure control and iterative reconstruction technique w ere employed. COMPARISON: CT dated 04/12/2021 FINDINGS: There are scattered moderate periventricular and subcortical white matter changes, most lik shy related to small vessel ischemic disease (microangiopathy). Prominent right perivascular space in the basal ganglia. No ventriculomegaly or midline shift. Basilar cisterns are patent. Paranasal sinu ses and mastoids are pneumatized. No depressed skull fractures. No acute intracranial hemorrhage, inf arction, mass or mass effect. IMPRESSION: 1. No acute intracranial abnormality. 2: Chronic age-related findings. Reviewed, dictated and finalized at location A.
--- NOTE | ~2021-05-27 | US_ITS ---
EXAMINATION: US venous doppler UE BI EXAM DATE: 06/03/2021 12:54 INDICATION: Left arm swelling, edema. TECHNIQUE: Multiple grayscale, color flow, Doppler sonographic images of the upper extremity veins bi laterally obtained by technologist. Compression was performed where able. There is no prior study f or comparison. FINDINGS: RIGHT upper extremity: Jugular vein: ------------> Normal. Subclavian vein: --------> Normal. Axillary vein:------------> Normal. Brachial vein:-----------> Normal. Basilic vein: ------------> Normal. Cephalic vein: ----------> Normal. Radial vein: ------------> Normal. Ulnar vein: > Normal. LEFT upper extremity: Jugular vein: ------------> Normal. Subclavian vein: --------> Normal. Axillary vein:------------> Normal. Brachial vein:-----------> Normal. Basilic vein: ------------> Normal. Cephalic vein: ----------> Normal. Radial vein: ------------> Normal. Ulnar vein: > Normal. Left arm edema noted. IMPRESSION: 1. No upper extremity DVT. 2. Left arm edema. Reviewed, dictated and finalized at location A.
--- NOTE | ~2021-05-27 | XR_ITS ---
EXAMINATION: XR chest 1V portable EXAM DATE: 05/31/2021 12:56 INDICATION: Rule out aspiration pneumonia. TECHNIQUE: Portable AP frontal chest x-ray was obtained. Comparison is made to prior examination from 05/27/2021. FINDINGS: Development of moderate amount of left perihilar airspace disease. Persistent right lower l obe airspace disease. Probably multifocal pneumonia given normal heart size. Aspiration as etiology n ot excludable. There is a left-sided portacatheter. No pneumothorax. Small right pleural effusion. Th ere are cholecystectomy clips. There are mild bony degenerative changes. IMPRESSION: 1. Development of moderate left perihilar airspace disease probably pneumonia, aspiration etiology n ot excludable. 2. Persistent smaller amount of right-sided pneumonia. 3. Small right pleural effusion. Reviewed, dictated and finalized at location A. IMPRESSION: 1. Development of moderate left perihilar airspace disease probably pneumonia, aspiration etiology not excludable. 2. Persistent smaller amount of right-sided pneumonia. 3. Small right pleural effusion.
--- NOTE | ~2021-05-27 | XR_ITS ---
EXAMINATION: XR chest 1V portable DATE: 06/05/2021 05:25 INDICATION: Respiratory failure TECHNIQUE: frontal view of the chest was obtained. COMPARISON: Chest radiograph dated 06/04/2021 FINDINGS: Endotracheal tube tip 2.6 cm above the pedro. Nasogastric tube with proximal side-port in the body o f the stomach and distal tip collimated beyond the inferior margin of the [id number]. Left subclav aide central venous port catheter with distal tip at the caudal superior vena cava. Pancreatic duct st ent projects over the central abdomen and cholecystectomy clips in right upper quadrant. No significant change in patchy bilateral airspace opacities throughout both lungs relatively sparing the apices. Likely small bilateral pleural effusions. No pneumothorax. The cardiomediastinal silhoue tte is normal. IMPRESSION: 1. No significant change in diffuse bilateral lung disease consistent with pneumonia, pulmonary edema , ARDS or some combination thereof. 2. Small bilateral pleural effusions. Reviewed, dictated and finalized at location A. 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 No significant change in diffuse bilateral lung disease consistent with pneu monia, pulmonary edema, ARDS or some combination thereof. 2. Small bilateral pleural effusions.
--- NOTE | ~2021-05-27 | CT_ITS ---
EXAMINATION: CT chest abdomen pelvis wo con DATE: 05/31/2021 17:52 INDICATION: Sepsis. Recent endoscopy and colonoscopy. History of pancreatic cancer, heart failure. TECHNIQUE: Computed tomography (CT) of the chest, abdomen, and pelvis was performed without intraveno us contrast. Automated exposure control and iterative reconstruction technique were employed. Exam do se: 302.61 mGy-cm total exam DLP. COMPARISON: 05/27/2021 CT abdomen pelvis 07/19/2020 CT abdomen pelvis 05/31/2021 portable AP chest FINDINGS: CHEST CT: Left-sided Port-A-Cath catheter in superior vena cava near superior cavoatrial junction. Cardiomegaly. No thoracic aortic aneurysm is detected. No pericardial effusion. No pleural effusion. There is a very slight right pneumothorax. There is mild patchy right upper lobe infiltrate. There is right perihilar and lower lobe patchy cons olidation. There is more extensive prominent patchy consolidation of the left upper and particularly left lower lobes with extensive air bronchograms involving particularly the lingula and left lower lobe. Finding s suggest extensive bilateral pneumonia, left greater than right. Right breast implant; status post right mastectomy. ABDOMEN/PELVIS CT: Postoperative change including cholecystectomy and probable Whipple procedure, with pancreatic duct s tent in place. No obvious hepatic or splenic or pancreatic or adrenal space-occupying mass lesion is evident on this limited noncontrast examination. Left parapelvic renal cyst. Kidneys otherwise appear unremarkable. No urinary tract calculus or hydro ureteronephrosis is evident. Normal caliber and atherosclerotic calcification of the abdominal aorta. There are numerous uterine calcified fibroadenomas. There is interval moderately prominent fluid lori ection in the endometrial cavity since 07/19/2020. Gastric air-fluid levels. There is small bowel air-fluid levels. No apparent bowel obstruction or int raperitoneal free air. There is mesenteric edema. There is edema of the abdominal and pelvic bender. There are 3 pins of the left proximal femur. No suspicious osteolytic or osteoblastic lesions are noted. There are mild anterior wedge compression fracture deformities of uncertain age at T2 and T3. Degenerative changes are noted including severe degenerative disease particularly at L1-2. IMPRESSION: Extensive bilateral pulmonary infiltrates/consolidation, greater on the left Left Port-A-Cath Increased density of the mesentery which may be due to mesenteric edema, considering the presence of the abdominal and pelvic wall edema. Mesenteric inflammation is another consideration. Gastric and small bowel air-fluid levels without apparent obstruction; no intraperitoneal free air Probable Whipple procedure; pancreatic stent Status post right mastectomy and right breast implant reconstruction Status post cholecystectomy Left renal parapelvic cyst Multiple uterine fibroids Interval moderately prominent fluid collection in the endometrial cavity; endometrial cervical malign jeana is not excluded Reviewed, dictated and finalized at [facility]. Reviewed, dictated and finalized at location A. IMPRESSION: Extensive bilateral pulmonary infiltrates/consolidation, greater o n the left Left Port-A-Cath Increased density of the mesentery which may be due to mesenteric edema, consid ering the presence of the abdominal and pelvic wall edema. Mesenteric inflammat ion is another consideration. Gastric and small bowel air-fluid levels without apparent obstruction; no intra peritoneal free air Probable Whipple procedure; pancreatic stent Status post right mastectomy and right breast implant reconstruction Status post
--- NOTE | ~2021-05-27 | XR_ITS ---
EXAMINATION: XR abdomen NG/feed tube insert DATE: 06/02/2021 11:47 INDICATION: Orogastric tube placement TECHNIQUE: A supine view of the abdomen and lower chest was obtained for evaluation of feeding tube placement. COMPARISON: None. FINDINGS: Nasogastric tube tip in proximal side port in the body of the stomach. Endotracheal tube tip 2.3 cm a giovanny the pedro. Left subclavian central venous port catheter with distal tip at the caudal superior vena cava. Pancreatic ductal stent projecting over the mid abdomen. Cholecystectomy clips in right up per quadrant. No dilated loops of gas-filled bowel in the visualized abdomen to suggest obstruction. Extensive airs pace opacities throughout both lungs consistent with multifocal pneumonia. No pneumothorax or left-si ded pleural effusion. Small right pleural effusion. Cardiomegaly. IMPRESSION: 1. Lines and tubes in expected position including the newly placed orogastric tube which is in the st omach. 2. Extensive bilateral pneumonia with small right pleural effusion. 3. Cardiomegaly. Reviewed, dictated and finalized at location A. IMPRESSION: 1. Lines and tubes in expected position including the newly placed orogastric t ube which is in the stomach. 2. Extensive bilateral pneumonia with small right pleural effusion. 3. Cardiomegaly.
--- NOTE | 2021-05-27 12:27 | ECG_ITS ---
Measurements Intervals [place] Rate: 83 P: 51 NC: 124 QRS: -44 QRSD: 124 T: 80 QT: 384 QTc: 454 Interpretive Statements SINUS RHYTHM POSSIBLE LEFT ATRIAL ENLARGEMENT LEFT AXIS DEVIATION LEFT BUNDLE BRANCH BLOCK BASELINE ARTIFACT- I, II, III, AVR, AVL ABNORMAL ECG Electronically Signed On 05-27-2021 14:06:54 CDT by Migel Adams D.O.
[2021-05-27 13:26] VITALS: BP 99/49; PULSE 85; RESP 16; TEMP 36.8; O2SAT 100
[2021-05-27 15:22] VITALS: BP 90/48; PULSE 74; RESP 10; O2SAT 100
[2021-05-27 15:48] LABS: Basophils Percent Auto 0.1 % (0.2-1.2); Hematocrit 24.3 % (37.0-47.0); Hemoglobin 8.1 g/dL (12.0-15.0); Immature Granulocyte Absolute 0.55 K/mm3 (0.00-0.031); Immature Granulocyte Percent A 2.3 % (0-0.5); Lymphocytes Absolute Auto 1.11 K/mm3 (0.9-3.2); Lymphocytes Percent Auto 4.6 % (18.3-44.2); Mean Corpuscular HGB Conc 33.3 g/dl (32-36); Mean Corpuscular Hemoglobin 35.2 pg (26-34); Mean Corpuscular Volume 105.7 fl (80-100); Mean Platelet Volume 11.2 fl (7.4-10.4); Monocytes Absolute Auto 1.8 K/mm3 (0.1-0.6); Monocytes Percent Auto 7.5 % (2.6-8.5); Neutrophils Absolute Auto 20.6 K/mm3 (1.3-6.7); Neutrophils Percent Auto 85.5 % (45.5-73.1); Platelet Count Result 224 k/mm3 (150-375); Red Cell Distribution Width 13.7 % (11.5-14.5); White Blood Count 24.1 K/mm3 (4.5-10.0)
[2021-05-27 15:58] LABS: INR 2.3; Prothrombin Time 24.9 Seconds (11.1-14.7)
[2021-05-27 16:01] LABS: Add Urine Microscopic? YES; Amorphous Sediment Urine Few; Appearance Urine Cloudy (Clear); Bacteria Urine Trace /hpf; Bilirubin Urine Negative (Negative); Blood Urine Negative (Negative); Color Urine Yellow (Yellow); Glucose Urine UA Negative (Negative); Hyaline Casts Urine 15-19 /lpf; Ketones Urine Negative (Negative); Leukocyte Esterase Ur Negative LEU/UL (Negative); Mucus Urine Rare /lpf; Nitrate Urine Negative (Negative); Protein Urine Negative (Negative); Specific Grav Ur 1.017 (1.001-1.035); Squamous Epithelial Cell Urine Few /hpf (Few); Urobilinogen Urine Negative mg/dL (<2.0); WBC Urine 0-3 /hpf
[2021-05-27 16:03] LABS: Alanine Aminotransferase 17 U/L (4-35); Albumin Level 2.7 g/dL (3.5-5.1); Alkaline Phosphatase 117 U/L (38-126); Anion Gap 9 mmol/L (8-16); Aspartate Amino Transferase 23 U/L (14-36); Blood Urea Nitrogen 30 mg/dL (7-17); Carbon Dioxide 22 mmol/L (22-30); Chloride 96 mmol/L (98-107); Estimated CRCL calculation 22 ml/min; Estimated Glomerular Filt Rate 37; Glucose 113 mg/dL (65-110); Potassium 4.5 mmol/L (3.4-5.0); Sodium 127 mmol/L (137-145)
[2021-05-27 16:04] LABS: Ovalocytes 1+ (NORMAL); Platelet Estimate Adequate (Adequate)
[2021-05-27 16:05] LABS: Burr Cells 2+ (NORMAL)
[2021-05-27 16:18] VITALS: BP 92/49; PULSE 77; RESP 12; O2SAT 97
[2021-05-27] MEDS: SODIUM CHLORIDE 0.9% IV 1,000 ML 999 ML IV CONT (16:18)
--- NOTE | 2021-05-27 17:38 | ED.WEAKNESS ---
HPI - Weakness General Chief complaint: Weakness Stated complaint: confusion Time Seen by Provider: 05/27/21 15:38 Source: patient and family History of Present Illness HPI Narrative: Patient presents with generalized weakness and confusion. Family reports she has had decreased appetite generalized weakness and has been altered. And reports her symptoms impressively worse over the past 2 days they were concerned so came to the ER for evaluation. Patient has not complained of any focal areas of pain abdominal pain or chest pain. Family is not noted any recent cough or fevers. Did not noted any vomiting or diarrhea. Related Data Home Medications Medication Instructions Recorded Confirmed latanoprost 0.005 % eye drops 1 drop EACH EYE HS 07/03/19 04/19/21 multivitamin 1 tablet PO DAILY 07/03/19 04/19/21 omega-3 fatty acids 1,000 mg 1,000 mg PO DAILY 07/03/19 04/19/21 capsule lactobacillus combination no.9 4 4,000 cell PO DAILY 02/11/20 04/19/21 billion cell capsule megestrol 400 mg/10 mL (40 mg/mL) 400 mg PO DAILY 12/29/20 04/19/21 oral suspension diphenhydramine HCl 25 mg PO Q6H PRN 01/09/21 04/19/21 ergocalciferol (vitamin D2) 50,000 unit PO WEEKLY 01/09/21 04/19/21 tramadol 100 mg PO Q6H PRN 01/09/21 04/19/21 zinc acetate 50 mg PO BID 01/09/21 04/19/21 apixaban 5 mg tablet 5 mg PO BID 04/12/21 04/19/21 spironolactone 25 mg tablet 50 mg PO DAILY tablet 04/18/21 Allergies Allergy/AdvReac Type Severity Reaction Status Date / Time ADHESIVE TAPE Allergy Mild Itching Uncoded 04/12/21 15:58 Review of Systems Review of Systems: CONSTITUTIONAL: Denies fever, chills, or sweats. EYES: Denies visual changes, redness, or discharge. ENT: Denies rhinorrhea, congestion, sore throat, or otalgia. CARDIOVASCULAR: Denies chest pain, palpitations, or edema. RESPIRATORY: Denies cough or dyspnea. GASTROINTESTINAL: Denies abdominal pain, nausea, vomiting, or diarrhea. GENITOURINARY: Denies dysuria or hematuria. SKIN: Denies rash or itching. MUSCULOSKELETAL: Denies back pain, joint pain, or myalgia. NEUROLOGIC: Denies headache, numbness, dizziness, or weakness. PSYCHIATRIC: Denies anxiety or depression. All systems reviewed & are unremarkable except as noted in HPI and below PMFSH Past Medical History Medical History Abdominal pain Adult BMI 19-24 kg/sq m Benign essential hypertension Bloating Blood infection BMI 20.0-20.9, adult BMI 22.0-22.9, adult Cancer of pancreas Diabetes DM type 2 (diabetes mellitus, type 2) Encounter for Medicare annual wellness exam Encounter for routine adult health examination without abnormal findings Eustachian tube dysfunction Fall (on) (from) unspecified stairs and steps, initial encounter Glaucoma Hearing loss Heart murmur Hematoma Hemoglobin A1c less than 7.0% last a1c was 6. 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 Pancreatic insufficiency Vitamin D deficiency Surgical History Surgical History H/O mastectomy H/O: section Family History Family History Mother Hypertension Family history of diabetes mellitus in first degree relative Diabetes mellitus Father Malignant neoplasm of prostate Social History Social History Smoking status: Never smoker Alcohol intake: never Substance use: never Substance use type: does not use Gender identity (if verbalized by the patient): Female Sexual Orientation (if Verbalized by the Patient): Straight or Heterosexual Spiritual care concerns: No Exam Narrative: GENERAL: Well-appearing, well-nourished, and in no acute distress. HEAD: Normocephalic, atraumatic. EYES: PERRLA and EOMI. ENT: N
[2021-05-27 18:53] VITALS: BP 93/48; PULSE 75; RESP 11; O2SAT 97
[2021-05-27 18:55] LABS: Lactic Acid Reflex 1.2 mmol/L (0.7-2.1)
--- NOTE | 2021-05-27 19:44 | PM.IMHP ---
H&P: HPI History of Present Illness Date/Time: 05/27/21 19:44 Chief Complaint: Altered mental status Narrative: This is 75-year-old female with past medical history significant for type 2 diabetes mellitus, history of pancreatic cancer, history of breast cancer, history of pulmonary embolism, dyslipidemia, pancreatic insufficiency, hypertension. Patient presented to the emergency room after family concerns due to the patient's altered mental status, confusion, not making sense, decreased oral intake for the last 2 days or so. Patient is unable to give much history due to her confusion denies any issues at the time of my visit but stated that was hungry and wanted something to eat. Preliminary workup was significant for lung infiltrate CBC was significant for a white blood cell count of 24,000, a hemoglobin of 8.1 MCV of 105 a creatinine of 1.4. Patient has been admitted for further assessment evaluation and treatment. Review of Systems Review of Systems: Poor appetite ROS unobtainable: Yes unobtainable due to mental status (Patient was confused at the time of my visit) PMFSH Past Medical History Medical History Abdominal pain Adult BMI 19-24 kg/sq m Benign essential hypertension Bloating Blood infection BMI 20.0-20.9, adult BMI 22.0-22.9, adult Cancer of pancreas Diabetes DM type 2 (diabetes mellitus, type 2) Encounter for Medicare annual wellness exam Encounter for routine adult health examination without abnormal findings Eustachian tube dysfunction Fall (on) (from) unspecified stairs and steps, initial encounter Glaucoma Hearing loss Heart murmur Hematoma Hemoglobin A1c less than 7.0% last a1c was 6. 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 Pancreatic insufficiency Vitamin D deficiency Surgical History Surgical History H/O mastectomy H/O: section Family History Family History Mother Hypertension Family history of diabetes mellitus in first degree relative Diabetes mellitus Father Malignant neoplasm of prostate Social History Social History Smoking status: Never smoker Alcohol intake: never Substance use: never Substance use type: does not use Gender identity (if verbalized by the patient): Female Sexual Orientation (if Verbalized by the Patient): Straight or Heterosexual Spiritual care concerns: No Meds Home Medications and Allergies Home Medications Medication Instructions Recorded Confirmed Type latanoprost 0.005 % eye drops 1 drop EACH EYE HS 07/03/19 05/28/21 History multivitamin 1 tablet PO DAILY 07/03/19 05/28/21 History omega-3 fatty acids 1,000 mg 1,000 mg PO DAILY 07/03/19 05/28/21 History capsule lactobacillus combination no.9 4 4,000 cell PO DAILY 02/11/20 05/28/21 History billion cell capsule pen needle, diabetic 32 gauge x #100 each 09/14/20 05/28/21 Rx 1/4 megestrol 400 mg/10 mL (40 mg/mL) 400 mg PO DAILY 12/29/20 05/28/21 History oral suspension diphenhydramine HCl 25 mg PO Q6H PRN 01/09/21 05/28/21 History ergocalciferol (vitamin D2) 50,000 unit PO WEEKLY 01/09/21 05/28/21 History tramadol 100 mg PO Q6H PRN 01/09/21 05/28/21 History zinc acetate 50 mg PO BID 01/09/21 05/28/21 History blood-glucose meter #1 ea 01/18/21 05/28/21 Rx ondansetron 8 mg disintegrating 8 mg PO Q8H PRN #14 tablet 01/24/21 05/28/21 Rx tablet lancets 33 gauge #100 ea 01/26/21 05/28/21 Rx blood sugar diagnostic #100 each 03/23/21 05/28/21 Rx furosemide 40 mg tablet 40 mg PO QAM #30 tablet 04/08/21 05/28/21 Rx apixaban 5 mg tablet 5 mg PO BID 04/12/21 05/28/21 History carvedilol 3.125 mg tablet 3.125 mg PO Q12H #60 tablet 04/12/21 05/28/21 Rx
--- NOTE | 2021-05-27 20:40 | PC.NURSE ---
Placed bed alarm under pt, due to increasing confusion.
--- NOTE | 2021-05-27 22:00 | ADMGEN ---
This patient, Lorraine Cedillo, was admitted to Medical Room 346-01. Patient/family oriented to hospital policies and general routines including ID bracelet, bed and alarms, visiting hours, pain management, procedures, bathroom and other care routines, personal items, smoking policy, room service/diet, and visiting hours. Information on how to activate the Rapid Response Team has been discussed. Patient/Family are encouraged to report perceived risks to care and to ask questions if they do not understand what they are told or what they should do.
[2021-05-27 22:19] VITALS: BMI 16.5
[2021-05-27 22:21] VITALS: BP 103/52; PULSE 69; RESP 18; TEMP 35.9; O2SAT 91
[2021-05-27] MEDS: SODIUM CHLORIDE 0.9% IV 1,000 ML 125 ML IV CONT (22:27)
[2021-05-28] VITALS (9 sets, daily range): BP systolic 97–102; BP diastolic 44–50; PULSE 75–92; RESP 16–20; TEMP 36–36.6; O2SAT 94–98
[2021-05-28 08:10] LABS: Glucose Point of Care 118 mg/dl (65-105)
[2021-05-28] MEDS: SODIUM CHLORIDE 0.9% IV 1,000 ML 75 ML IV CONT (08:30)
[2021-05-28] MEDS: ACIDOPHILUS/BULGARICUS CHEWABLE TABLET 1 TABLET PO (08:33)
[2021-05-28] MEDS: carvediloL 3.125 MG TABLET PO (08:33)
[2021-05-28] MEDS: APIXABAN 5 MG TABLET PO ×2 (08:33→16:43)
[2021-05-28] MEDS: OMEGA 3 POLYUNSAT FATTY ACIDS 1 GM CAP PO (08:33)
[2021-05-28] MEDS: MULTIVITAMINS THERAPEUTIC TAB (*BKC) 1 TABLET PO (08:33)
[2021-05-28] MEDS: SPIRONOLACTONE 50 MG TABLET PO (08:34)
[2021-05-28] MEDS: LOSARTAN POTASSIUM 50 MG TABLET PO (08:34)
[2021-05-28] MEDS: MEGESTROL ACETATE (*CHEMO) ORAL SUSP 40 MG/ML SYR 400 MG PO (08:42)
[2021-05-28] MEDS: INSULIN GLARGINE (*BKC) 100 UNITS/ML 10 UNITS SUB-Q (08:43)
[2021-05-28] MEDS: IPRATROPIUM BR 0.02% INH SOLN 0.5 MG/2.5 ML VIAL INHALATION ×2 (10:11→16:54)
[2021-05-28] MEDS: ALBUTEROL SULFATE NEB 2.5 MG/0.5 ML INH INHALATION ×2 (10:12→16:54)
[2021-05-28 11:47] LABS: Basophils Percent Auto 0.1 % (0.2-1.2); Eosinophils Percent Auto 0.1 % (0-4.4); Hematocrit 21.8 % (37.0-47.0); Hemoglobin 7.5 g/dL (12.0-15.0); Immature Granulocyte Absolute 0.09 K/mm3 (0.00-0.031); Immature Granulocyte Percent A 0.5 % (0-0.5); Lymphocytes Absolute Auto 1.05 K/mm3 (0.9-3.2); Lymphocytes Percent Auto 6.1 % (18.3-44.2); Mean Corpuscular HGB Conc 34.4 g/dl (32-36); Mean Corpuscular Hemoglobin 35.5 pg (26-34); Mean Corpuscular Volume 103.3 fl (80-100); Mean Platelet Volume 11.1 fl (7.4-10.4); Monocytes Absolute Auto 1.1 K/mm3 (0.1-0.6); Monocytes Percent Auto 6.2 % (2.6-8.5); Platelet Count Result 207 k/mm3 (150-375); Red Blood Count 2.11 M/mm3 (4.2-5.4); Red Cell Distribution Width 13.6 % (11.5-14.5); White Blood Count 17.2 K/mm3 (4.5-10.0)
[2021-05-28 12:01] LABS: Anion Gap 6 mmol/L (8-16); Blood Urea Nitrogen 25 mg/dL (7-17); Carbon Dioxide 23 mmol/L (22-30); Chloride 102 mmol/L (98-107); Estimated CRCL calculation 28 ml/min; Estimated Glomerular Filt Rate 54; Glucose 181 mg/dL (65-110); Magnesium 1.2 mg/dL (1.6-2.3); Potassium 4.5 mmol/L (3.4-5.0); Sodium 131 mmol/L (137-145)
[2021-05-28 12:10] LABS: Glucose Point of Care 134 mg/dl (65-105)
[2021-05-28] MEDS: MAGNESIUM SULF 1 GM/D5W 100 ML 1 GM/100 ML BAG IVPB (14:24)
[2021-05-28 16:39] LABS: Glucose Point of Care 166 mg/dl (65-105)
--- NOTE | 2021-05-28 19:27 | PM.IMPN ---
Progress Note: A&P Assessment and Plan (1) Pneumonia: Qualifiers: Laterality: unspecified laterality Lung location: unspecified part of lung Pneumonia type: due to unspecified organism Qualified Code(s): J18.9 - Pneumonia, unspecified organism Code(s): J18.9 - Pneumonia, unspecified organism Status: Acute Assessment and Plan: Patient was appropriate started on levofloxacin. patient is hemodynamically stable And breathing comfortably on room air. Continue same antibiotic. Blood cultures preliminary reports are negative. Supportive care Breathing treatments (2) STEVE (acute kidney injury): Code(s): N17.9 - Acute kidney failure, unspecified Status: Acute Assessment and Plan: Mild acute nonoliguric kidney injury. Likely pre renal in the setting of dehydration and poor oral intake. Both Parres creatinine 0.6-0.7. Creatinine is improving with at 1 today. Continue close monitoring. Hypomagnesemia was carefully supplemented. Monitor magnesium level in a.m. labs. Likely secondary to pre renal azotemia Gentle IV hydration Repeat BMP in a.m. Supportive care (3) DM type 2 (diabetes mellitus, type 2): Qualifiers: Diabetes mellitus terminal operations supervisor insulin use: with terminal operations supervisor use Diabetes mellitus complication status: without complication Qualified Code(s): E11.9 - Type 2 diabetes mellitus without complications; Z79.4 - long-term (current) use of insulin Code(s): E11.9 - Type 2 diabetes mellitus without complications Status: Acute Assessment and Plan: Continue home meds Fasting blood glucose is 181. Accu-Cheks are into 118-166 range. Continue monitoring Accu-Cheks AC and HS (4) Benign essential hypertension: Code(s): I10 - Essential (primary) hypertension Status: Acute Assessment and Plan: Holding Lasix Continue to monitor current BP 100/44. (5) Pancreatic insufficiency: Code(s): K86.89 - Other specified diseases of pancreas Status: Acute Assessment and Plan: Not on Creon (6) Altered mental status: Code(s): R41.82 - Altered mental status, unspecified Status: Acute Assessment and Plan: Likely secondary to pneumonia Currently improving. Start PT/ OT to improve patient's engagement Supportive care Continue to monitor Subjective Date/time seen: 05/28/21 19:27 S: Patient is examined at the bedside. She is reporting generalized weakness. She was evaluated at [place] by Dr Gonzales for anemia. She is not does not recall having a colonoscopy. Review of Systems Review of Systems: All systems reviewed & are unremarkable except as noted in HPI and below Constitutional: Constitutional: Reports no additional constitutional complaints Eyes: Eyes: Reports no additional eye complaints ENT: Reports system reviewed and no additional complaints, except as documented Cardiovascular: Cardiovascular: Reports no additional cardiovascular complaints Respiratory: Respiratory: Reports no additional respiratory complaints Gastrointestinal: Gastrointestinal: Reports no additional gastrointestinal complaints Genitourinary: Genitourinary: Reports no additional female genitourinary complaints Musculoskeletal: Musculoskeletal: Reports no additional musculoskeletal complaints Integumentary/Breasts: Skin/Breast: Reports system reviewed and no additional complaints, except as docu Neurologic: Reports system reviewed and no additional complaints, except as documented Psychiatric: Psychiatric: Reports no additional psychiatric complaints and Reports as per HPI Endocrine: Endocrine: Reports no additional endocrine complaints Hematologic/Lymphatic: Hematologic/Lymphatic: Reports no additional hematologic/lymphatic complaints Allergic/Immunologic: Allergic/Immunologic: Reports no additional allergic/immunologic complaints Exam Narrative: Laying in bed; is at the bedside. Const:
[2021-05-28] MEDS: LATANOPROST 0.005% OP SOLN 2.5 ML BTL 1 DROP EACH EYE (20:33)
[2021-05-28] MEDS: ZOLPIDEM TARTRATE (*CRX) 5 MG TABLET 10 MG PO (20:33)
[2021-05-28 20:58] LABS: Glucose Point of Care 141 mg/dl (65-105)
--- NOTE | 2021-05-28 21:28 | PCRCNOTE ---
unable to give UPD treatment, therapist in ED
[2021-05-29] VITALS (22 sets, daily range): BP systolic 97–136; BP diastolic 44–61; PULSE 76–95; RESP 14–21; TEMP 36.2–37; O2SAT 90–100
[2021-05-29] MEDS: ALBUTEROL SULFATE NEB 2.5 MG/0.5 ML INH INHALATION ×6 (00:41→19:55)
[2021-05-29] MEDS: IPRATROPIUM BR 0.02% INH SOLN 0.5 MG/2.5 ML VIAL INHALATION ×6 (00:41→19:55)
[2021-05-29] MEDS: SODIUM CHLORIDE 0.9% IV 1,000 ML 75 ML IV CONT ×2 (01:25→17:02)
[2021-05-29 06:31] LABS: Basophils Percent Auto 0.2 % (0.2-1.2); Eosinophils Absolute Auto 0.1 K/mm3 (0-0.3); Eosinophils Percent Auto 0.5 % (0-4.4); Hematocrit 21.7 % (37.0-47.0); Immature Granulocyte Absolute 0.06 K/mm3 (0.00-0.031); Immature Granulocyte Percent A 0.5 % (0-0.5); Lymphocytes Absolute Auto 1.82 K/mm3 (0.9-3.2); Mean Corpuscular HGB Conc 31.8 g/dl (32-36); Mean Corpuscular Hemoglobin 34.7 pg (26-34); Mean Platelet Volume 11.1 fl (7.4-10.4); Monocytes Absolute Auto 0.9 K/mm3 (0.1-0.6); Monocytes Percent Auto 7.3 % (2.6-8.5); Neutrophils Percent Auto 77.5 % (45.5-73.1); Platelet Count Result 209 k/mm3 (150-375); Red Blood Count 1.99 M/mm3 (4.2-5.4); Red Cell Distribution Width 13.7 % (11.5-14.5)
[2021-05-29 07:14] LABS: Iron 21 ug/dL (37-170)
[2021-05-29 07:23] LABS: Percent Iron Saturation 10 % (20-50)
[2021-05-29 07:43] LABS: Anion Gap 7 mmol/L (8-16); Blood Urea Nitrogen 21 mg/dL (7-17); Calcium 7.8 mg/dL (8.4-10.2); Carbon Dioxide 20 mmol/L (22-30); Chloride 107 mmol/L (98-107); Estimated CRCL calculation 31 ml/min; Estimated Glomerular Filt Rate > 60; Glucose 127 mg/dL (65-110); Magnesium 1.8 mg/dL (1.6-2.3); Potassium 4.2 mmol/L (3.4-5.0); Sodium 134 mmol/L (137-145)
[2021-05-29 08:07] LABS: Hemoglobin 6.9 g/dL (12.0-15.0)
[2021-05-29 08:07] LABS: Glucose Point of Care 125 mg/dl (65-105)
[2021-05-29] MEDS: INSULIN GLARGINE (*BKC) 100 UNITS/ML 10 UNITS SUB-Q (08:27)
[2021-05-29] MEDS: carvediloL 3.125 MG TABLET PO ×2 (08:28→20:20)
[2021-05-29] MEDS: MEGESTROL ACETATE (*CHEMO) ORAL SUSP 40 MG/ML SYR 400 MG PO (08:28)
[2021-05-29] MEDS: OMEGA 3 POLYUNSAT FATTY ACIDS 1 GM CAP PO (08:28)
[2021-05-29] MEDS: MULTIVITAMINS THERAPEUTIC TAB (*BKC) 1 TABLET PO (08:28)
[2021-05-29] MEDS: SPIRONOLACTONE 50 MG TABLET PO (08:28)
[2021-05-29] MEDS: APIXABAN 5 MG TABLET PO ×2 (08:28→17:02)
[2021-05-29] MEDS: ACIDOPHILUS/BULGARICUS CHEWABLE TABLET 1 TABLET PO (08:28)
[2021-05-29] MEDS: LOSARTAN POTASSIUM 50 MG TABLET PO (08:29)
[2021-05-29] MEDS: SODIUM CHLORIDE 0.9% IV 250 ML 30 ML IV CONT (10:43)
[2021-05-29 11:37] LABS: IFOB Positive Control Positive; Immunochemical Fecal Occult Bl Positive (N)
[2021-05-29 12:25] LABS: Glucose Point of Care 176 mg/dl (65-105)
[2021-05-29] MEDS: EPOETIN ALFA-EPBX 4,000 UNITS/ML VIAL 4000 UNITS SUB-Q (13:19)
--- NOTE | 2021-05-29 13:21 | WPDGIPROGNO ---
Progress Note: A&P Additional Plan G+ anemia Oncology consult Full note dictated Care reviewed with Dr. Ilia Perez #[id number] Subjective Date/time seen: 05/29/21 13:21 Objective Data Vital Signs Vital Signs: Vital Signs - 24 hr 05/28/21 14:00 05/28/21 16:56 05/28/21 17:04 Temperature 36.6 C Pulse Rate 76 80 80 Respiratory Rate 20 16 18 Blood Pressure 100/44 L Pulse Oximetry 95 05/28/21 20:35 05/28/21 22:00 05/29/21 00:43 Temperature 36.6 C Pulse Rate 75 75 86 Respiratory Rate 16 20 Blood Pressure 97/50 L Pulse Oximetry 94 96 05/29/21 00:52 05/29/21 03:53 05/29/21 04:01 Temperature Pulse Rate 84 94 95 Respiratory Rate 20 18 18 Blood Pressure Pulse Oximetry 05/29/21 06:00 05/29/21 08:15 05/29/21 08:28 Temperature 36.5 C Pulse Rate 78 93 82 Respiratory Rate 21 H 18 Blood Pressure 101/49 L Pulse Oximetry 100 05/29/21 08:35 05/29/21 10:33 05/29/21 10:55 Temperature 36.4 C 36.2 C L Pulse Rate 92 86 82 Respiratory Rate 16 14 14 Blood Pressure 106/50 L 101/44 L Pulse Oximetry 90 92 05/29/21 11:55 05/29/21 12:02 Temperature 36.5 C Pulse Rate 84 95 Respiratory Rate 14 18 Blood Pressure 97/48 L Pulse Oximetry 98 Intake/Output Intake/Output: Intake & Output 05/26/21 05/27/21 05/28/21 05/29/21 23:59 23:59 23:59 23:59 Intake Total 1150 1150 1950 Output Total 1200 1100 Balance 1150 -50 850 Meds/Results Medications: Active Medications Generic Name Dose Route Start Last Admin Trade Name Freq PRN Reason Stop Dose Admin Albuterol 2.5 mg 05/28/21 04:00 05/29/21 12:00 Albuterol Sulfate Neb 2.5 Mg/0.5 Ml Inh INHALATION 2.5 mg Q4HRT ANDRZEJ Administration Albuterol 2 puff 05/28/21 08:00 05/28/21 15:34 Albuterol Sulfate (*Sp) Aerosol 1 Puff INHALATION Not Given Q6HRT ANDRZEJ Apixaban 5 mg 05/28/21 09:00 05/29/21 08:28 Apixaban 5 Mg Tablet PO 5 mg BID ANDRZEJ Administration Carvedilol 3.125 mg 05/28/21 09:00 05/29/21 08:28 Carvedilol 3.125 Mg Tablet PO 3.125 mg Q12HR ANDRZEJ Administration Diphenhydramine HCl 25 mg 05/28/21 02:02 Diphenhydramine Hcl Cap 25 Mg Capsule PO Q6H PRN Sleep Epoetin Murtaza-epbx 4,000 units 05/29/21 09:00 05/29/21 13:19 Epoetin Murtaza-Epbx 4,000 Units/Ml Vial SUB-Q 4,000 units Yuen@0900 ANDRZEJ Administration Ergocalciferol 50,000 unit 06/01/21 09:00 Ergocalciferol 50,000 Unit Capsule PO We@0900 ANDRZEJ Fish Oil 1 gm 05/28/21 09:00 05/29/21 08:28 [place] 3 Polyunsat Fatty Acids 1 Gm Cap PO 1 gm DAILY ANDRZEJ Administration Levofloxacin/Dextrose 750 mg in 150 mls @ 100 mls/hr 05/27/21 18:00 05/27/21 20:22 Levaquin 750 Mg/D5w 150 Ml IVPB Infused Q48H ANDRZEJ Infusion Sodium Chloride 1,000 mls @ 75 mls/hr 05/27/21 18:00 05/29/21 01:25 Normal Saline Iv IV CONT 75 mls/hr .[id number] ANDRZEJ Administration Sodium Chloride 250 mls @ 30 mls/hr 05/29/21 08:14 05/29/21 10:43 Normal Saline Iv IV CONT 05/29/21 16:33 30 mls/hr .Q8H20M STA Administration Insulin Glargine 10 units 05/28/21 09:00 05/29/21 08:27 Insulin Glargine (*Bkc) 100 Units/Ml SUB-Q 10 units DAILY ANDRZEJ Administration Ipratropium [place] 0.5 mg 05/28/21 04:00 05/29/21 12:00 Ipratropium Br 0.02% Inh Soln 0.5 Mg/2.5 Ml Vial INHALATION 0.5 mg Q4HRT ANDRZEJ Administration Lactobacillus Acidophilus 1 tablet 05/28/21 09:00 05/29/21 08:28 Acidophilus/[place]gar[place] Chewable Tablet PO 06/27/21 08:59 1 tablet DAILY ANDRZEJ Administration Latanoprost 1 drop 05/28/21 21:00 05/28/21 20:33 Latanoprost 0.005% Op Soln 2.5 Ml Btl EACH EYE 1 drop HS ANDRZEJ Administration Losartan Potassium 50 mg 05/28/21 09:00 05/29/21 08:29 Losartan Potassium 50 Mg Tablet PO 50 mg DAILY ANDRZEJ Administration Megestrol Acetate 400 mg 05/28/21 09:00 05/29/21 08:28 Megestrol Acetate (*Chemo) Oral Susp 40 Mg/Ml Syr PO 06/27/21 08:59 400 mg DAILY ANDRZEJ Administration Mul
--- NOTE | 2021-05-29 14:57 | PM.IMPN ---
Progress Note: A&P Assessment and Plan (1) Pneumonia: Qualifiers: Laterality: unspecified laterality Lung location: unspecified part of lung Pneumonia type: due to unspecified organism Qualified Code(s): J18.9 - Pneumonia, unspecified organism Code(s): J18.9 - Pneumonia, unspecified organism Status: Acute Assessment and Plan: Patient was appropriately started on levofloxacin. Currently patient is hemodynamically stable and breathing comfortably on room air. Continue same antibiotic. Blood cultures preliminary reports are negative. Supportive care Breathing treatments (2) STEVE (acute kidney injury): Code(s): N17.9 - Acute kidney failure, unspecified Status: Acute Assessment and Plan: Mild acute nonoliguric kidney injury. Likely pre renal in the setting of dehydration and poor oral intake. Baseline creatinine 0.6-0.7. Creatinine is improving with at 0.9 today. Continue close monitoring. Hypomagnesemia was carefully supplemented. Monitor magnesium level in a.m. labs. Likely secondary to pre renal azotemia Gentle IV hydration Repeat BMP in a.m. Supportive care (3) DM type 2 (diabetes mellitus, type 2): Qualifiers: Diabetes mellitus long-term insulin use: with supervisor intermediates use Diabetes mellitus complication status: without complication Qualified Code(s): E11.9 - Type 2 diabetes mellitus without complications; Z79.4 - [facility] (current) use of insulin Code(s): E11.9 - Type 2 diabetes mellitus without complications Status: Acute Assessment and Plan: Continue home meds Fasting blood glucose is 127. Accu-Cheks are into 125-176 range. Continue monitoring Accu-Cheks AC and HS (4) Benign essential hypertension: Code(s): I10 - Essential (primary) hypertension Status: Acute Assessment and Plan: Holding Lasix Continue to monitor current BP 109/50. (5) Pancreatic insufficiency: Code(s): K86.89 - Other specified diseases of pancreas Status: Acute Assessment and Plan: Not on Creon (6) Altered mental status: Code(s): R41.82 - Altered mental status, unspecified Status: Acute Assessment and Plan: Likely secondary to pneumonia Currently improving. Start PT/ OT to improve patient's engagement Supportive care Continue to monitor (7) Anemia: Code(s): D64.9 - Anemia, unspecified Status: Acute Assessment and Plan: Likely multifactorial in the setting of previously diagnosed pancreas cancer, breast cancer, currently being evaluated by the Dr Gonzales. Patient is supposed to be on the weekly dose of Epogen. Given current blood transfusions iron stores are presumed to be repleted. Anemia is progressive, hypochromic and microcytic. Iron stores are low. A stool occult blood was positive and GI was consulted. We will transfuse 1 unit PRBCs today. Oncology was consulted. It would be helpful to consult oncology for a plan of care. Subjective Date/time seen: 05/29/21 14:57 s: Patient is examined at the bedside. She is eating her breakfast with appetite. There is no active complaints. Review of Systems Review of Systems: All systems reviewed & are unremarkable except as noted in HPI and below ROS unobtainable: Yes unobtainable due to mental status (Patient was confused at the time of my visit) Constitutional: Constitutional: Reports no additional constitutional complaints Eyes: Eyes: Reports no additional eye complaints ENT: Reports system reviewed and no additional complaints, except as documented Cardiovascular: Cardiovascular: Reports no additional cardiovascular complaints Respiratory: Respiratory: Reports no additional respiratory complaints Gastrointestinal: Gastrointestinal: Reports no additional gastrointestinal complaints Genitourinary: Genitourinary: Reports no additional female genitourinary complaints Musculoskeletal: Musculoskeletal: Reports no
--- NOTE | 2021-05-29 16:59 | CONS_ITS ---
DATE OF CONSULTATION: 05/29/2021 HISTORY OF PRESENT ILLNESS: 75-year-old female with history of type 2 diabetes, pancreatic cancer status post Whipple procedure 7 years ago with chemo radiation, breast cancer status post mastectomy, pulmonary embolus, hypertension, hyperlipidemia, glaucoma, incisional hernia, , who presents with mental status changes. I am asked to provide GI evaluation at the request of the hospitalist service for heme-positive stool and anemia. Patient's primary care provider is Dr. Mcgee and primary oncologist, Dr. Gonzales. is at bedside for the entire visit. The patient has easy bruising, but otherwise denies abdominal pain, nausea, vomiting, heartburn, trouble swallowing, loss of appetite or weight, diarrhea, constipation, hematochezia, melena, fever, jaundice, scleral icterus, dark urine, light stools, itching, hot or cold intolerance, chest pain, shortness of breath at rest, hematuria, dysuria, new cough or visual changes, tingling of the skin, bone pain or tremors. No endocarditis risk factors. ALLERGIES: SEE LIST. MEDICATIONS: Include Lactinex and Eliquis. Eliquis was discontinued approximately 3 weeks ago. She does not use aspirin or NSAIDs. SOCIAL HISTORY: Nonsmoker, nondrinker. FAMILY HISTORY: Negative for GI malignancy. She does not know when her last colonoscopy was. PHYSICAL EXAM: GENERAL: Slender elderly female, lying in bed, in no apparent distress. She has no lower extremity edema, jaundice, spider angioma, or palmar erythema. HEENT: Skull is normocephalic, atraumatic. Pupils nonicteric. Oropharynx clear. NECK: Supple without thyromegaly. LUNGS: Clear to auscultation. HEART: Rate and rhythm regular. S1, S2 normal. ABDOMEN: Normoactive bowel sounds, soft, nontender, nonrigid, nondistended without hepatosplenomegaly or masses. RECTAL: Deferred. NEURO: Conscious and alert. LABS: On 05/29, hemoglobin 7, hematocrit 21, white count of 13, platelets 209, MCV 109, creatinine 0.9. Stool heme positive. B12 is 912, folate is 16, ferritin is 77, iron is 21, TIBC 215, percent sat is 10. TSH is 4.5. On May 28, hematocrit 22. On May 27, hemoglobin 8, hematocrit 24, T bilirubin 2.0, alkaline phosphatase 117, AST 23, ALT is 17. CT scan of the abdomen and pelvis shows surgical changes with ileus, cirrhotic appearing liver, 2.1 cm adrenal adenomatous appearing lesion. ASSESSMENT AND PLAN: 1. Patient with chronic blood loss anemia with heme-positive stool and macrocytosis in patient with history of pancreatic cancer status post Whipple disease. The patient has no evidence of active GI bleeding. We will follow H and H and transfuse as needed. Certainly concern for GI source of blood loss, upper versus lower. We would follow H and H and transfuse as needed. Care with aspirin, nonsteroidals and anticoagulants. We would consult Oncology and consider upper or lower endoscopy per primary service, patient, family, and Oncology. Certainly contribution from a Whipple procedure and anemia labs are consistent with chronic disease. 2. Abnormal imaging digestive with mild ileus. Patient appears asymptomatic. 3. Patient with history of pancreatic cancer per Oncology. 4. Abnormal imaging of the liver with CT scan showing cirrhotic appearing liver. We will hold on further evaluation at this time. Patient appears to be well compensated. We will leave further recommendations for [facility]. 5. Abnormal bilirubin. Would recheck in a.m. and fractionate. Thank you for allowing me to care for your patient. Further recommendations per [facility]. ADÁN PIERCE M.D.
[2021-05-29 17:13] LABS: Glucose Point of Care 250 mg/dl (65-105)
[2021-05-29] MEDS: CALCIUM CARBONATE (TUMS) 500 MG (200 MG ELEMENTAL) PO (19:48)
[2021-05-29 20:17] LABS: Glucose Point of Care 179 mg/dl (65-105)
[2021-05-29] MEDS: ZOLPIDEM TARTRATE (*CRX) 5 MG TABLET 10 MG PO (20:21)
[2021-05-29] MEDS: LATANOPROST 0.005% OP SOLN 2.5 ML BTL 1 DROP EACH EYE (20:21)
[2021-05-29] MEDS: ONDANSETRON INJ 4 MG/2 ML VIAL IV PUSH (22:27)
[2021-05-30] VITALS (14 sets, daily range): BP systolic 121–148; BP diastolic 56–79; PULSE 72–96; RESP 16–18; TEMP 36.3–37.1; O2SAT 96–100; BMI 16.5
[2021-05-30] MEDS: ALBUTEROL SULFATE NEB 2.5 MG/0.5 ML INH INHALATION ×3 (00:21→08:18)
[2021-05-30] MEDS: IPRATROPIUM BR 0.02% INH SOLN 0.5 MG/2.5 ML VIAL INHALATION ×3 (00:21→08:18)
[2021-05-30 05:25] LABS: Basophils Percent Auto 0.1 % (0.2-1.2); Eosinophils Absolute Auto 0.1 K/mm3 (0-0.3); Eosinophils Percent Auto 0.6 % (0-4.4); Hematocrit 24.9 % (37.0-47.0); Hemoglobin 8.9 g/dL (12.0-15.0); Immature Granulocyte Absolute 0.11 K/mm3 (0.00-0.031); Immature Granulocyte Percent A 0.8 % (0-0.5); Lymphocytes Absolute Auto 1.47 K/mm3 (0.9-3.2); Mean Corpuscular HGB Conc 35.7 g/dl (32-36); Mean Platelet Volume 10.5 fl (7.4-10.4); Monocytes Percent Auto 7.7 % (2.6-8.5); Neutrophils Absolute Auto 10.7 K/mm3 (1.3-6.7); Neutrophils Percent Auto 79.8 % (45.5-73.1); Platelet Count Result 204 k/mm3 (150-375); Red Blood Count 2.62 M/mm3 (4.2-5.4); Red Cell Distribution Width 16.6 % (11.5-14.5); White Blood Count 13.4 K/mm3 (4.5-10.0)
[2021-05-30] MEDS: CALCIUM CARBONATE (TUMS) 500 MG (200 MG ELEMENTAL) PO (05:30)
[2021-05-30 06:24] LABS: Anion Gap 8 mmol/L (8-16); Blood Urea Nitrogen 15 mg/dL (7-17); Calcium 7.7 mg/dL (8.4-10.2); Carbon Dioxide 21 mmol/L (22-30); Chloride 106 mmol/L (98-107); Estimated CRCL calculation 39 ml/min; Estimated Glomerular Filt Rate > 60; Glucose 153 mg/dL (65-110); Potassium 3.7 mmol/L (3.4-5.0); Sodium 135 mmol/L (137-145)
[2021-05-30 08:08] LABS: Glucose Point of Care 148 mg/dl (65-105)
[2021-05-30] MEDS: LOSARTAN POTASSIUM 50 MG TABLET PO (08:35)
[2021-05-30] MEDS: SPIRONOLACTONE 50 MG TABLET PO (08:35)
[2021-05-30] MEDS: ACIDOPHILUS/BULGARICUS CHEWABLE TABLET 1 TABLET PO (08:35)
[2021-05-30] MEDS: OMEGA 3 POLYUNSAT FATTY ACIDS 1 GM CAP PO (08:36)
[2021-05-30] MEDS: MULTIVITAMINS THERAPEUTIC TAB (*BKC) 1 TABLET PO (08:36)
[2021-05-30] MEDS: carvediloL 3.125 MG TABLET PO ×2 (08:36→20:20)
[2021-05-30] MEDS: MEGESTROL ACETATE (*CHEMO) ORAL SUSP 40 MG/ML SYR 400 MG PO (08:36)
[2021-05-30] MEDS: INSULIN GLARGINE (*BKC) 100 UNITS/ML 10 UNITS SUB-Q (08:46)
--- NOTE | 2021-05-30 09:19 | PM.IMPN ---
Progress Note: A&P Assessment and Plan (1) Pneumonia: Qualifiers: Laterality: unspecified laterality Lung location: unspecified part of lung Pneumonia type: due to unspecified organism Qualified Code(s): J18.9 - Pneumonia, unspecified organism Code(s): J18.9 - Pneumonia, unspecified organism Status: Acute Assessment and Plan: chest x-ray admission showed airspace opacities in the right mid and lower lung zones as well as a left lower lung zone. CT of the abdomen showed right basilar airspace disease suspicious for pneumonia and small right pleural effusion. Patient was started on levofloxacin. She remains on room air. Blood cultures negative to date. Continue Levaquin. Stop Nebulizer treatment. check modified barium swallow (2) Anemia: Code(s): D64.9 - Anemia, unspecified Status: Acute Assessment and Plan: Patient with a chronic anemia with baseline hemoglobin in the 9-10 range. Hemoglobin however was 8.1 on admission here and dropped to 6.9. She is on Eliquis currently. She is guaiac positive. She has previously been diagnosed pancreas cancer, breast cancer, currently being evaluated by the Dr Gonzales. Patient is supposed to be on the weekly dose of Epogen. B12/Folate normal. Fe 21, TIBC 215, 10% Sat. Given 1U PRBC blood transfusion on 05/29/21. A stool occult blood was positive and GI was consulted. Hgb 8.9 today. Will stop Eliquis. Will hold IV fluids since she is eating okay. Defer to Oncology about iron infusions. GERD symptoms so consider PUD/gasritis. Add PPI. Monitor HH to ensure stability. Continue EPO (3) STEVE (acute kidney injury): Code(s): N17.9 - Acute kidney failure, unspecified Status: Acute Assessment and Plan: Mild acute nonoliguric kidney injury with Cr 1.4. Likely pre renal in the setting of dehydration and poor oral intake. Baseline creatinine 0.6-0.7. Creatinine has improved to 0.7 today. Continue close monitoring. Stop IV fluids. (4) Altered mental status: Code(s): R41.82 - Altered mental status, unspecified Status: Acute Assessment and Plan: Likely secondary to pneumonia and STEVE. She has cirrhosis. Resolved. Sart PT/ OT. check ammonia level. Continue to monitor. Hold Ambien. (5) DM type 2 (diabetes mellitus, type 2): Qualifiers: Diabetes mellitus complication status: without complication Diabetes mellitus residential insulin use: with radar air traffic controller use Qualified Code(s): E11.9 - Type 2 diabetes mellitus without complications; Z79.4 - [facility]CI (current) use of insulin Code(s): E11.9 - Type 2 diabetes mellitus without complications Status: Acute Assessment and Plan: A1c 5.2 in December. The patient's blood glucose was reviewed on 05/30 Glucose remains reasonably well controlled. Continue AccuCheks covering with sliding scale. Hypoglycemia protocol available as needed. Continue current medications. (6) Pancreatic insufficiency: Code(s): K86.89 - Other specified diseases of pancreas Status: Acute Assessment and Plan: Stable. Related to her history of pancreatic cancer. Patient not on Creon on admission. Will defer to GI for further treatment if necessary. (7) Benign essential hypertension: Code(s): I10 - Essential (primary) hypertension Status: Acute Assessment and Plan: Patient's blood pressure was reviewed on 05/30 Blood pressure remains well controlled. Will continue current medications. Holding Lasix (8) DVT prophylaxis: Code(s): Z29.9 - Encounter for prophylactic measures, unspecified Status: Acute Assessment and Plan: SCDs Additional Plan Vaginal bleeding - RN called stating patient now having vaginal bleeding. Will check vaginal US Subjective Date/time seen: 05/30/21 09:19 Interval history: 75yo female with hx pancratic and breast CA here for altered mental status. As
--- NOTE | 2021-05-30 10:37 | PCPTNOTE ---
On 05/30/21, the student, Lalito Michael, provided care and completed [facility] documentation on this patient. I have reviewed the student's documentation and agree with the findings.
[2021-05-30] MEDS: PANTOPRAZOLE 40 MG TABLET PO ×2 (10:44→20:20)
[2021-05-30 11:41] LABS: Rapid Plasma Reagin Non-Reactive (NonReactive)
[2021-05-30 11:59] LABS: Hematocrit 25.9 % (37.0-47.0)
[2021-05-30 12:09] LABS: Glucose Point of Care 117 mg/dl (65-105)
--- NOTE | 2021-05-30 12:44 | PDONCCN ---
HPI - Date of Consult Date/Time: 05/30/21 12:44 Requesting Physician: Danielle San MD Primary Care Provider: Wilfredo Mcgee MD - Consult Narrative Reason for consult: Normocytic anemia Narrative: Lorraine Cedillo is a 75 year old female with remote history of breast cancer more than 30 years ago and pancreatic cancer status post Whipple procedure done about 7 years ago. Patient had a relapse and currently on chemotherapy with last treatment was about a month ago. She has been treated by Dr. Gonzales. She has been dealing with confusion and dementia. She has been eating poorly. She denies any significant weight loss. She came into the hospital for evaluation of altered mental status. Labs showed anemia with hemoglobin of 8.1 and MCV was elevated at 105. Head CT came back unremarkable. CT abdomen and pelvis showed right adrenal mass 2.1 cm along with liver cirrhosis and mildly enlarged mesenteric lymphadenopathy. She also has right basilar airspace disease suspicious for pneumonia. Eliquis was discontinued due to anemia and Hemoccult-positive stools. She is complaining of tiredness and fatigue. Denies any gross bleeding. No other new complaints. Review of Systems - Review of Systems All systems reviewed & are unremarkable except as noted in HPI and bel - Neurologic Reports system reviewed and no additional complaints, except as documented, Reports confusion PMFSH Medical History: Medical History (Last Reviewed 05/27/21 @ 17:40 by Erick Rodriguez MD) Abdominal pain Adult BMI 19-24 kg/sq m Benign essential hypertension Bloating Blood infection BMI 20.0-20.9, adult BMI 22.0-22.9, adult Cancer of pancreas Diabetes DM type 2 (diabetes mellitus, type 2) Encounter for Medicare annual wellness exam Encounter for routine adult health examination without abnormal findings Eustachian tube dysfunction Fall (on) (from) unspecified stairs and steps, initial encounter Glaucoma Hearing loss Heart murmur Hematoma Hemoglobin A1c less than 7.0% last a1c was 6. reported by pt History of pancreatic cancer Hx of breast cancer Hx pulmonary embolism Hyperlipidemia Incisional hernia Insomnia On residential drug therapy Pancreatic insufficiency Vitamin D deficiency Surgical History: Surgical History (Last Reviewed 05/27/21 @ 17:40 by Erick Rodriguez MD) H/O mastectomy H/O: section Family History: Family History (Last Reviewed 10/30/21 @ 02:13 by Briana Messina RN) Mother Hypertension Family history of diabetes mellitus in first degree relative Diabetes mellitus Father Malignant neoplasm of prostate Other Adult BMI 19-24 kg/sq m - Social History Social History: Social History (Last Reviewed 05/27/21 @ 17:40 by Erick Rodriguez MD) Gender Identity: Gender identity (if verbalized by the patient): Female Sexual Orientation: Sexual Orientation (if Verbalized by the Patient): Straight or Heterosexual Alcohol Use: Alcohol intake: never Substance Use: Substance use: never Substance use type: does not use Others: Spiritual care concerns: No Smoking Status: Smoking status: Never smoker Meds Home Medications Medication Instructions Recorded Confirmed Type latanoprost 0.005 % eye drops 1 drop EACH EYE HS 07/03/19 05/28/21 History multivitamin 1 tablet PO DAILY 07/03/19 05/28/21 History omega-3 fatty acids 1,000 mg 1,000 mg PO DAILY 07/03/19 05/28/21 History capsule lactobacillus combination no.9 4 4,000 cell PO DAILY 02/11/20 05/28/21 History billion cell capsule pen needle, diabetic 32 gauge x #100 each 09/14/20 05/28/21 Rx 1/4 megestrol 400 mg/10 mL (40 mg/mL) 400 mg PO DAILY 12/29/20 05/28/21 History oral suspension diphenhydramine HCl 25 mg PO Q6H PRN 01/09/21 05/28/21 History ergocalciferol (vitamin D2) 50,000 unit PO WEEKLY 01/09/21 05/28/21 History tramadol 100 mg PO Q6H PRN 01/09/21 05/28/21 History
--- NOTE | 2021-05-30 13:03 | PCSTNOTE ---
Please refer to the Bedside Swallow Evaluation in the EMR. Please note, silent aspiration cannot be ruled out at bedside.
[2021-05-30] MEDS: IRON SUCROSE COMPLEX 500 MG in SODIUM CHLORIDE 0.9% IV 250 ML 78.57 MG IVPB (13:27)
[2021-05-30 13:41] LABS: Ammonia < 9 umol/L (9-30)
--- NOTE | 2021-05-30 14:36 | WPDGIPROGNO ---
Progress Note: A&P Assessment and Plan (1) Iron deficiency anemia: Code(s): D50.9 - Iron deficiency anemia, unspecified Status: Acute Assessment and Plan: received blood transfusion and now iv iron hem-onc on board, anemia could be multifactorial (s/p whipple, pancreatic cancer, now with pneumonia, etc) but also had FOBT+ she is more alert today and willing to have scopes, proceed tomorrow to check if any gi blood loss (2) Occult blood in stools: Code(s): R19.5 - Other fecal abnormalities Status: Acute Assessment and Plan: scopes tomorrow (3) Metabolic encephalopathy: Code(s): G93.41 - Metabolic encephalopathy Status: Resolved Assessment and Plan: improved (4) Cancer of pancreas: Qualifiers: Pancreatic malignancy location: unspecified Qualified Code(s): C25.9 - Malignant neoplasm of pancreas, unspecified Code(s): C25.9 - Malignant neoplasm of pancreas, unspecified Status: Acute Assessment and Plan: oncology on board, chemorx about 1 month ago (5) Leukocytosis (leucocytosis): Qualifiers: Leukocytosis type: unspecified Qualified Code(s): D72.829 - Elevated white blood cell count, unspecified Code(s): D72.829 - Elevated white blood cell count, unspecified Status: Acute Assessment and Plan: improving, on abx (6) Pneumonia: Qualifiers: Laterality: unspecified laterality Lung location: unspecified part of lung Pneumonia type: due to unspecified organism Qualified Code(s): J18.9 - Pneumonia, unspecified organism Code(s): J18.9 - Pneumonia, unspecified organism Status: Acute Subjective Date/time seen: 05/30/21 14:36 Interval history: she is getting iron infusion, no major changes. Review of Systems Review of Systems: All systems reviewed & are unremarkable except as noted in HPI and below Exam Const: General: comfortable, no acute distress and ill appearing chronically HENMT: General nose exam: Normal nares present Eyes: General: appearance normal, both eyes and all related structures Neck: Neck: no JVD Chest: Other: Left upper chest Port-A-Cath Resp: Auscultation: clear to auscultation bilaterally Cardio: Rate: regular rate Rhythm: regular rhythm GI: Inspection: non-distended GI Palp: Yes Soft to palpation Auscultation: normal bowel sounds Other: small ventral hernia Skin: General skin exam: no rashes or lesions noted Neuro: Speech: normal speech Extrem: General: normal to inspection Psych: Mental Status: mental status grossly normal Objective Data Vital Signs Vital Signs: Vital Signs - 24 hr 05/29/21 16:16 05/29/21 16:24 05/29/21 19:55 Temperature Pulse Rate 86 88 84 Respiratory Rate 18 16 18 Blood Pressure Pulse Oximetry 05/29/21 19:56 05/29/21 20:00 05/29/21 20:03 Temperature Pulse Rate 76 88 Respiratory Rate 18 18 Blood Pressure Pulse Oximetry 97 97 05/29/21 20:20 05/29/21 22:00 05/30/21 00:21 Temperature 98.6 F Pulse Rate 76 87 89 Respiratory Rate 18 18 Blood Pressure 136/61 Pulse Oximetry 99 05/30/21 00:29 05/30/21 04:11 05/30/21 04:18 Temperature Pulse Rate 92 84 88 Respiratory Rate 18 18 18 Blood Pressure Pulse Oximetry 05/30/21 06:00 05/30/21 08:16 05/30/21 08:22 Temperature 98.1 F Pulse Rate 88 82 Respiratory Rate 16 18 Blood Pressure 148/79 H Pulse Oximetry 96 97 05/30/21 08:24 05/30/21 08:36 05/30/21 14:17 Temperature 98.8 F Pulse Rate 83 96 75 Respiratory Rate 18 16 Blood Pressure 121/56 L Pulse Oximetry 100 Intake/Output Intake/Output: Intake & Output 05/27/21 05/28/21 05/29/21 05/30/21 23:59 23:59 23:59 23:59 Intake Total 1150 1150 3420 1826 Output Total 1200 1600 1000 Balance 1150 -50 1820 826 Meds/Results Medications: Active Medications Generic Name Dose Route Start Last Admin Trade Name Freq PRN Reason St
[2021-05-30] MEDS: ALBUTEROL SULFATE (*SP) AEROSOL 1 PUFF 2 PUFF INHALATION ×2 (14:41→19:58)
[2021-05-30 16:34] LABS: Glucose Point of Care 101 mg/dl (65-105)
[2021-05-30] MEDS: BISACODYL 5 MG TABLET EC 20 MG PO (17:21)
[2021-05-30] MEDS: polyethylene glycoL 3350 238 GM BOTTLE PO (17:21)
[2021-05-30 19:50] LABS: Glucose Point of Care 111 mg/dl (65-105)
[2021-05-30 20:08] LABS: Hematocrit 28.1 % (37.0-47.0); Hemoglobin 9.2 g/dL (12.0-15.0)
[2021-05-30] MEDS: LATANOPROST 0.005% OP SOLN 2.5 ML BTL 1 DROP EACH EYE (20:20)
[2021-05-31] VITALS (31 sets, daily range): BP systolic 67–125; BP diastolic 34–61; PULSE 66–115; RESP 16–28; TEMP 35.4–36.6; O2SAT 92–100
[2021-05-31] MEDS: ALBUTEROL SULFATE (*SP) AEROSOL 1 PUFF 2 PUFF INHALATION ×2 (01:25→08:54)
[2021-05-31] MEDS: MAGNESIUM CITRATE 300 ML BTL PO (04:46)
[2021-05-31 05:52] LABS: Basophils Percent Auto 0.2 % (0.2-1.2); Eosinophils Absolute Auto 0.2 K/mm3 (0-0.3); Eosinophils Percent Auto 1.3 % (0-4.4); Hematocrit 24.5 % (37.0-47.0); Hemoglobin 8.6 g/dL (12.0-15.0); Immature Granulocyte Absolute 0.13 K/mm3 (0.00-0.031); Immature Granulocyte Percent A 0.9 % (0-0.5); Lymphocytes Absolute Auto 1.91 K/mm3 (0.9-3.2); Lymphocytes Percent Auto 13.4 % (18.3-44.2); Mean Corpuscular HGB Conc 35.1 g/dl (32-36); Mean Corpuscular Hemoglobin 34.8 pg (26-34); Mean Corpuscular Volume 99.2 fl (80-100); Mean Platelet Volume 10.7 fl (7.4-10.4); Monocytes Percent Auto 7.2 % (2.6-8.5); Nucleated Red Blood Cells Absolute Auto 0.1 K/mm3 (0.0-0.012); Nucleated Red Blood Cells Perc 0.4 % (0.0-0.2); Platelet Count Result 199 k/mm3 (150-375); Red Blood Count 2.47 M/mm3 (4.2-5.4); White Blood Count 14.3 K/mm3 (4.5-10.0)
[2021-05-31 06:31] LABS: Anion Gap 6 mmol/L (8-16); Blood Urea Nitrogen 15 mg/dL (7-17); Calcium 7.8 mg/dL (8.4-10.2); Carbon Dioxide 20 mmol/L (22-30); Chloride 105 mmol/L (98-107); Estimated CRCL calculation 39 ml/min; Estimated Glomerular Filt Rate > 60; Glucose 114 mg/dL (65-110); Potassium 3.9 mmol/L (3.4-5.0); Sodium 131 mmol/L (137-145)
[2021-05-31 07:53] LABS: Glucose Point of Care 127 mg/dl (65-105)
[2021-05-31] MEDS: ACIDOPHILUS/BULGARICUS CHEWABLE TABLET 1 TABLET PO (08:33)
[2021-05-31] MEDS: OMEGA 3 POLYUNSAT FATTY ACIDS 1 GM CAP PO (08:34)
[2021-05-31] MEDS: MULTIVITAMINS THERAPEUTIC TAB (*BKC) 1 TABLET PO (08:34)
[2021-05-31] MEDS: carvediloL 3.125 MG TABLET PO (08:34)
[2021-05-31] MEDS: INSULIN GLARGINE (*BKC) 100 UNITS/ML 10 UNITS SUB-Q (08:34)
[2021-05-31] MEDS: SPIRONOLACTONE 50 MG TABLET PO (08:34)
[2021-05-31] MEDS: MEGESTROL ACETATE (*CHEMO) ORAL SUSP 40 MG/ML SYR 400 MG PO (08:34)
[2021-05-31] MEDS: PANTOPRAZOLE 40 MG TABLET PO (08:34)
[2021-05-31] MEDS: LOSARTAN POTASSIUM 50 MG TABLET PO (08:34)
[2021-05-31] MEDS: IRON SUCROSE COMPLEX 500 MG in SODIUM CHLORIDE 0.9% IV 250 ML 78.57 MG IVPB (08:35)
[2021-05-31 09:59] LABS: Glucose Point of Care 108 mg/dl (65-105)
--- NOTE | 2021-05-31 10:06 | WPDANESEPPF ---
Anes - Initial Pre Proc Eval Procedure: Operation Date: 05/31/21 12:30 Proposed Procedures p Esophagogastroduodenoscopy & Colonoscopy - Otis Chance MD Date/Time: 05/31/21 10:06 Surgeon: Danielle San MD Pre Op Diagnosis: Pneumonia Patient Data Age: 75 Gender: F Height: 1.57 m Weight: 41.1 kg Last Vital Signs Temp 36.6 C 05/31/21 05:25 Pulse 76 05/31/21 08:34 Resp 17 05/31/21 05:25 BP 114/60 05/31/21 05:25 Pulse Ox 98 05/31/21 05:25 Allergies Allergy/AdvReac Type Severity Reaction Status Date / Time No Known Allergies Allergy Verified 05/31/21 10:01 Home Medications Medication Instructions Recorded Confirmed Type latanoprost 0.005 % eye drops 1 drop EACH EYE HS 07/03/19 05/28/21 History multivitamin 1 tablet PO DAILY 07/03/19 05/28/21 History omega-3 fatty acids 1,000 mg 1,000 mg PO DAILY 07/03/19 05/28/21 History capsule lactobacillus combination no.9 4 4,000 cell PO DAILY 02/11/20 05/28/21 History billion cell capsule pen needle, diabetic 32 gauge x #100 each 09/14/20 05/28/21 Rx 1/4 megestrol 400 mg/10 mL (40 mg/mL) 400 mg PO DAILY 12/29/20 05/28/21 History oral suspension diphenhydramine HCl 25 mg PO Q6H PRN 01/09/21 05/28/21 History ergocalciferol (vitamin D2) 50,000 unit PO WEEKLY 01/09/21 05/28/21 History tramadol 100 mg PO Q6H PRN 01/09/21 05/28/21 History zinc acetate 50 mg PO BID 01/09/21 05/28/21 History blood-glucose meter #1 ea 01/18/21 05/28/21 Rx ondansetron 8 mg disintegrating 8 mg PO Q8H PRN #14 tablet 01/24/21 05/28/21 Rx tablet lancets 33 gauge #100 ea 01/26/21 05/28/21 Rx blood sugar diagnostic #100 each 03/23/21 05/28/21 Rx furosemide 40 mg tablet 40 mg PO QAM #30 tablet 04/08/21 05/28/21 Rx apixaban 5 mg tablet 5 mg PO BID 04/12/21 05/28/21 History carvedilol 3.125 mg tablet 3.125 mg PO Q12H #60 tablet 04/12/21 05/28/21 Rx insulin glargine 100 unit/mL (3 10 unit SUB-Q DAILY #0 ml 04/12/21 05/28/21 Rx mL) subcutaneous pen losartan 50 mg tablet 50 mg PO DAILY #30 tablet 04/12/21 05/28/21 Rx spironolactone 25 mg tablet 50 mg PO DAILY tablet 04/18/21 05/28/21 History zolpidem 10 mg tablet 10 mg PO QHS #30 tablet 05/25/21 05/28/21 Rx Laboratory Tests 05/29/21 05/30/21 05/30/21 16:57 11:41 11:51 WBC RBC Hgb 9.0 g/dL L g/dL (12.0-15.0) Hct 25.9 % L % (37.0-47.0) MCV MCH MCHC RDW Plt Count MPV Immature Gran % (Auto) Neut % (Auto) Lymph % (Auto) [place] % (Auto) Eos % (Auto) Baso % (Auto) Lymph # (Auto) [place] # (Auto) Eos # (Auto) Baso # (Auto) Abs Immat Gran (auto) Absolute Neuts (auto) Absolute Nucleated RBC Nucleated RBC % Sodium Potassium Chloride Carbon Dioxide Anion Gap BUN Creatinine Estim Creat Clear Calc Estimated GFR Glucose POC Capillary Glucose 117 mg/dl H mg/dl (65-105) Calcium Ammonia RPR Non-reactive (NonReactive) 05/30/21 05/30/21 05/30/21 11:51 16:30 19:34 WBC RBC Hgb Hct MCV MCH MCHC RDW Plt Count MPV Immature Gran % (Auto) Neut % (Auto) Lymph % (Auto) [place] % (Auto) Eos % (Auto) Baso % (Auto) Lymph # (Auto) [place] # (Auto) Eos # (Auto) Baso # (Auto) Abs Immat Gran (auto) Absolute Neuts (auto) Absolute Nucleated RBC Nucleated RBC % Sodium
[2021-05-31] MEDS: LACTATED RINGERS 1,000 ML 150 ML IV CONT (10:09)
[2021-05-31] MEDS: BENZOCAINE (*SP) 60 ML SPRAY CAN (HURRICAINE) 1 SPRAY MUCOUS MEM (10:37)
--- NOTE | 2021-05-31 11:05 | PM.IMPN ---
Progress Note: A&P Assessment and Plan (1) Acute respiratory failure with hypoxemia: Code(s): J96.01 - Acute respiratory failure with hypoxia Status: Acute Assessment and Plan: Patient was 99% on room air prior to the procedure but was noted to be hypoxic in recovery. CXR reviewed personally and showing development on moderate left perihilar airspace disease and persistent smaller right sided PNA. ABG 7.48/37 on 7L. Patient is hypothermic as well so Betty Yolanda ordered. Concern for aspiration PNA. Will also exclude cardiac and check BNP, Trop, EKG but no complaints of chest pain. Add neb treatments. Change to NRB mask to improve her hypoxia. Change abx. Check sputum and blood cultures. NPO until stable and may need repeat swallow study. Moved to IMU Returned to the room due to hypotension 67/36. She denies any abd pain. No CP. She feels warm. Temp now 97.5. Left anterior and flank inspiratory crackles. RRR. Abd soft, mildly protuberant but nontender. Hypoactive BS now. mottling noted in the LE. Patient mentating. Procal 0.1. LA 2.1. EKG no significant change and Trop negative. WBC and CMP normal. BNP 874. Fluid bolus ordered. Consider perforation. Spoke with recovery unit operator. Plan for CT scan once BP improves. Continue IV abx. Stop oral medications including anti-HTN meds. Change PPI to IV. Move to ICU. May need presors. Now 100% on 15L NRB + 15L HFNC. i room and he was updated and all questions answered. 65 minutes spent on critical care time. (2) Pneumonia: Qualifiers: Laterality: unspecified laterality Lung location: unspecified part of lung Pneumonia type: due to unspecified organism Qualified Code(s): J18.9 - Pneumonia, unspecified organism Code(s): J18.9 - Pneumonia, unspecified organism Status: Acute Assessment and Plan: CXR on admission showed airspace opacities in the right mid and lower lung zones as well as a left lower lung zone. CT of the abdomen showed right basilar airspace disease suspicious for pneumonia and small right pleural effusion. Patient was started on levofloxacin. Blood cultures negative to date. Bedside swallow study 05/30 was normal. As above. Abx adjusted. (3) Anemia: Code(s): D64.9 - Anemia, unspecified Status: Acute Assessment and Plan: Patient with a chronic anemia with baseline hemoglobin in the 9-10 range. Hemoglobin however was 8.1 on admission here and dropped to 6.9 consistent with acute blood loss anemia. She was on Eliquis which was held. She was guaiac positive. She has previously been diagnosed with pancreas cancer and breast cancer, currently being evaluated by the Dr Gonzales. Patient is supposed to be on the weekly dose of Epogen. B12/Folate normal. Fe 21, TIBC 215, 10% Sat. Given 1U PRBC blood transfusion on 05/29/21. A stool occult blood was positive and GI was consulted. Hgb 8.6 today. EGD today showing severe diffuse esophagitis and mild duodenitis. Edwards showing diverticulosis and a single colon polyp that was removed. Continue PPI and Carafate added. Monitor for stable hgb. (4) Esophagitis: Code(s): K20.90 - Esophagitis, unspecified without bleeding Status: Acute Assessment and Plan: As above (5) STEVE (acute kidney injury): Code(s): N17.9 - Acute kidney failure, unspecified Status: Acute Assessment and Plan: Mild acute nonoliguric kidney injury with Cr 1.4. Likely pre renal in the setting of dehydration and poor oral intake. Baseline creatinine 0.6-0.7. Creatinine has improved to 0.7 today. Continue close monitoring. (6) Altered mental status: Code(s): R41.82 - Altered mental status, unspecified Status: Acute Assessment and Plan: Likely secondary to pneumonia and STEVE. She has cirrhosis but ammonia level okay. AOx4 now. Resolved. Continue to hold Ambien. (7) DM type 2 (diabetes mellitus, type 2): Qualifiers: Diabetes mellitus
--- NOTE | 2021-05-31 11:23 | SUR.OPER ---
EGD start-1039 end-1045 Colonoscopy start-1051 end-1110
[2021-05-31 11:47] LABS: Glucose Point of Care 123 mg/dl (65-105)
[2021-05-31 12:52] LABS: Alveolar/Arterial O2 Gradient 274.7 mmHg; Base Excess ABG -3.1 mEq/l (+/-2.0); Fractional Inspired Oxygen 48 %; HCO3 ABG 19.6 mEq/l (22.0-26.0); Oxygen Content ABG 8.9 %vol (16.0-22.0); Oxyhemoglobin 71.9 % THb (90.0-100.0); PO2 FiO2 Ratio Arterial Blood 0.77 %; Total Hemoglobin 8.8 g/dL (12.0-18.0); pH ABG 7.479 (7.350-7.450)
[2021-05-31 12:53] LABS: Device NASAL CANNULA; Modified Allen's Test Pass; Oxygen Saturation ABG 76.1 % (95.0-100.0); Site Drawn LEFT RADIAL
--- NOTE | 2021-05-31 13:20 | ECG_ITS ---
Measurements Intervals [place] Rate: 116 P: 48 ND: 118 QRS: -19 QRSD: 122 T: 136 QT: 343 QTc: 477 Interpretive Statements SINUS TACHYCARDIA POSSIBLE LEFT ATRIAL ENLARGEMENT BASELINE WANDER- I, II, AVR, V4-V6 LEFT BUNDLE BRANCH BLOCK ABNORMAL ECG Electronically Signed On 05-31-2021 14:24:04 CDT by Migel Adams D.O.
[2021-05-31 13:49] LABS: Basophils Percent Auto 0.3 % (0.2-1.2); Eosinophils Absolute Auto 0.1 K/mm3 (0-0.3); Eosinophils Percent Auto 1.5 % (0-4.4); Hemoglobin 8.4 g/dL (12.0-15.0); Immature Granulocyte Absolute 0.05 K/mm3 (0.00-0.031); Immature Granulocyte Percent A 0.8 % (0-0.5); Lymphocytes Absolute Auto 1.04 K/mm3 (0.9-3.2); Lymphocytes Percent Auto 17.4 % (18.3-44.2); Mean Corpuscular HGB Conc 33.6 g/dl (32-36); Mean Corpuscular Hemoglobin 34.3 pg (26-34); Mean Platelet Volume 10.9 fl (7.4-10.4); Monocytes Absolute Auto 0.2 K/mm3 (0.1-0.6); Monocytes Percent Auto 3.5 % (2.6-8.5); Neutrophils Absolute Auto 4.6 K/mm3 (1.3-6.7); Neutrophils Percent Auto 76.5 % (45.5-73.1); Nucleated Red Blood Cells Absolute Auto 0.1 K/mm3 (0.0-0.012); Nucleated Red Blood Cells Perc 1.3 % (0.0-0.2); Platelet Count Result 191 k/mm3 (150-375); Red Blood Count 2.45 M/mm3 (4.2-5.4); Red Cell Distribution Width 16.4 % (11.5-14.5)
[2021-05-31 14:00] LABS: Lactic Acid Reflex 2.1 mmol/L (0.7-2.1)
[2021-05-31 14:03] LABS: Alanine Aminotransferase 16 U/L (4-35); Albumin Level 2.1 g/dL (3.5-5.1); Alkaline Phosphatase 92 U/L (38-126); Anion Gap 6 mmol/L (8-16); Aspartate Amino Transferase 25 U/L (14-36); Bilirubin,Total 1.8 mg/dL (0.2-1.3); Blood Urea Nitrogen 15 mg/dL (7-17); Calcium 7.5 mg/dL (8.4-10.2); Carbon Dioxide 21 mmol/L (22-30); Chloride 106 mmol/L (98-107); Estimated CRCL calculation 39 ml/min; Estimated Glomerular Filt Rate > 60; Glucose 115 mg/dL (65-110); Potassium 3.8 mmol/L (3.4-5.0); Sodium 133 mmol/L (137-145)
[2021-05-31 14:15] LABS: Troponin I < 0.012 ng/mL (0.000-0.034)
[2021-05-31] MEDS: ALBUTEROL SULFATE NEB 2.5 MG/0.5 ML INH 5 MG INHALATION ×2 (14:27→22:03)
[2021-05-31 14:31] LABS: CRP 0.7 mg/dL (<1.0)
[2021-05-31 14:37] LABS: NT Pro B Type Natriuretic Pept 874 pg/mL (5-100)
[2021-05-31] MEDS: SUCRALFATE SUSP 100 MG/ML 10 ML UDC 1000 MG PO (14:47)
--- NOTE | 2021-05-31 15:05 | PC.NURSE ---
This patient, Lorraine Cedillo, was received from [facility] on 05/31/21 at 1505. Report received from Ev DURBIN. Patient/family oriented to unit policies and routines
--- NOTE | 2021-05-31 15:19 | PC.NURSE ---
This patient, Lorraine Cedillo, was transferred to [ IMU ] on 05/31/21 at 1519. Personal belongings sent with patient. Report given to [ Louisa]. Appropriate documentation sent with patient.
--- NOTE | 2021-05-31 15:33 | PC.NURSE ---
The patients spouse was called earlier - no answer, voicemail was left. Was going to update on patients status.
[2021-05-31 15:58] LABS: Procalcitonin 0.1 ng/mL
[2021-05-31 16:37] LABS: Reflex Lactic Acid Yes or No Add Lactic
[2021-05-31] MEDS: SODIUM CHLORIDE 0.9% IV 500 ML 999 ML IV CONT (16:41)
[2021-05-31] MEDS: SODIUM CHLORIDE 0.9% IV 500 ML 999 ML (16:41)
[2021-05-31] MEDS: SODIUM CHLORIDE 0.9% IV 1,000 ML 100 ML IV CONT (17:48)
[2021-05-31 18:02] LABS: Lactic Acid 3.6 mmol/L (0.7-2.1)
[2021-05-31] MEDS: SODIUM CHLORIDE 0.9% IV 1,000 ML 999 ML IV CONT (20:45)
[2021-05-31] MEDS: DEXTROSE 50% 25 GM/50 ML SYRINGE IV PUSH ×2 (20:55→21:40)
[2021-05-31] MEDS: LATANOPROST 0.005% OP SOLN 2.5 ML BTL 1 DROP EACH EYE (21:08)
[2021-05-31] MEDS: PANTOPRAZOLE SODIUM IV 40 MG VIAL IV PUSH (21:09)
[2021-05-31 21:37] LABS: Glucose Point of Care 22 mg/dl (65-105)
[2021-05-31 21:37] LABS: Glucose Point of Care 65 mg/dl (65-105)
[2021-05-31 21:37] LABS: Glucose Point of Care 69 mg/dl (65-105)
[2021-05-31 22:05] LABS: Glucose Point of Care 87 mg/dl (65-105)
[2021-05-31] MEDS: DEXTROSE 5% 1,000 ML 1,000 ML 100 ML IVPB (22:32)
[2021-05-31 23:09] LABS: Glucose Point of Care 88 mg/dl (65-105)
[2021-06-01] VITALS (29 sets, daily range): BP systolic 88–125; BP diastolic 41–83; PULSE 77–108; RESP 11–30; TEMP 35.7–36.6; O2SAT 90–99
[2021-06-01 00:15] LABS: Glucose Point of Care 96 mg/dl (65-105)
[2021-06-01 00:24] LABS: Alveolar/Arterial O2 Gradient 344.3 mmHg; Carboxyhemoglobin 0.2 % THb (0-2.0); Fractional Inspired Oxygen 60 %; HCO3 ABG 14.8 mEq/l (22.0-26.0); Methemoglobin ABG 0.6 %THb (0-1.5); Oxygen Content ABG 10.6 %vol (16.0-22.0); Oxygen Saturation ABG 92.4 % (95.0-100.0); Oxyhemoglobin 89.5 % THb (90.0-100.0); PO2 ABG 59.2 mmHg (80.0-100.0); PO2 FiO2 Ratio Arterial Blood 0.99 %; Reduced Hemoglobin 9.7 %THb (0-5.0); Total Hemoglobin 8.4 g/dL (12.0-18.0); pH ABG 7.445 (7.350-7.450)
[2021-06-01 00:26] LABS: PCO2 ABG 22.1 mmHg (35.0-45.0)
[2021-06-01 00:27] LABS: Device HIGH FLOW NASAL CANN; Modified Allen's Test Pass; Site Drawn RIGHT RADIAL
[2021-06-01] MEDS: NOREPINEPHRINE 8 MG/D5W 250 ML 8 MG/250 ML BAG 9.38 MG IV CONT (01:07)
[2021-06-01 01:21] LABS: Glucose Point of Care 108 mg/dl (65-105)
[2021-06-01] MEDS: SODIUM CHLORIDE 0.9% IV 1,000 ML 100 ML IV CONT (01:31)
[2021-06-01] MEDS: ALBUTEROL SULFATE NEB 2.5 MG/0.5 ML INH 5 MG INHALATION ×4 (01:41→20:04)
[2021-06-01 04:22] LABS: Glucose Point of Care 121 mg/dl (65-105)
[2021-06-01 06:16] LABS: Hematocrit 21.9 % (37.0-47.0); Hemoglobin 7.5 g/dL (12.0-15.0); Mean Corpuscular HGB Conc 34.2 g/dl (32-36); Mean Corpuscular Hemoglobin 34.7 pg (26-34); Mean Corpuscular Volume 101.4 fl (80-100); Mean Platelet Volume 11.2 fl (7.4-10.4); Platelet Count Result 146 k/mm3 (150-375); Red Blood Count 2.16 M/mm3 (4.2-5.4); White Blood Count 44.1 K/mm3 (4.5-10.0)
[2021-06-01 06:23] LABS: Lactic Acid Reflex 2.5 mmol/L (0.7-2.1)
[2021-06-01 06:25] LABS: Alanine Aminotransferase 15 U/L (4-35); Albumin Level 1.9 g/dL (3.5-5.1); Alkaline Phosphatase 70 U/L (38-126); Anion Gap 7 mmol/L (8-16); Aspartate Amino Transferase 24 U/L (14-36); Bilirubin,Total 1.7 mg/dL (0.2-1.3); Blood Urea Nitrogen 14 mg/dL (7-17); Calcium 6.7 mg/dL (8.4-10.2); Carbon Dioxide 15 mmol/L (22-30); Chloride 108 mmol/L (98-107); Estimated CRCL calculation 37 ml/min; Estimated Glomerular Filt Rate > 60; Glucose 149 mg/dL (65-110); Magnesium 2.5 mg/dL (1.6-2.3); Phosphorus 2.3 mg/dL (2.5-4.5); Potassium 3.5 mmol/L (3.4-5.0); Sodium 130 mmol/L (137-145)
[2021-06-01 06:28] LABS: Lipase < 10 U/L (23-300)
[2021-06-01 07:05] LABS: Band Neutrophils Percent 18 % (0-6); Lymphocytes Absolute Manual 1.76 K/mm3 (1.1-4.5); Monocytes Absolute Manual 0.44 K/mm3 (0.1-0.90); Monocytes Percent Manual 1 % (3-9); Neutrophils Absolute Manual 41.89 K/mm3 (1.7-7.2); Neutrophils Percent Manual 77 % (46-73); Nucleated Red Blood Cells 1 %; Total Cells Counted 100
[2021-06-01 07:15] LABS: Burr Cells 2+ (NORMAL); Ovalocytes 1+ (NORMAL); Poikilocytosis 1+ (NORMAL)
[2021-06-01 07:16] LABS: Platelet Estimate Adequate (Adequate)
[2021-06-01 08:36] LABS: Glucose Point of Care 139 mg/dl (65-105)
[2021-06-01] MEDS: DEXTROSE 5% 1,000 ML 1,000 ML 100 ML IVPB (08:40)
[2021-06-01 09:12] LABS: Reflex Lactic Acid Yes or No Add Lactic
--- NOTE | 2021-06-01 09:22 | WPDANESPN ---
Anes - Prog Note Post-Op Date/Time: 06/01/21 09:22 Cardiovascular status: normal Respiratory status: normal Airway patency: baseline Mental status: baseline Post-Op hydration status: normal Vital Signs: Last Vital Signs Temp 35.9 C L 06/01/21 08:00 Pulse 88 06/01/21 08:18 Resp 27 H 06/01/21 08:18 BP 108/61 06/01/21 08:00 Pulse Ox 98 06/01/21 08:00 Pain Score (VAS): 0 I/O: Intake & Output 05/31/21 06/01/21 06/01/21 23:59 07:59 15:59 Intake Total 2600 1600 1000 Output Total 150 Balance 2600 1450 1000 Laboratory Tests 06/01/21 06:09 06/01/21 06:09 05/31/21 05/31/21 05/31/21 09:56 11:44 12:45 WBC RBC Hgb Hct MCV MCH MCHC RDW Plt Count MPV Immature Gran % (Auto) Neut % (Auto) Lymph % (Auto) Arthur % (Auto) Eos % (Auto) Baso % (Auto) Lymph # (Auto) Arthur # (Auto) Eos # (Auto) Baso # (Auto) Abs Immat Gran (auto) Absolute Neuts (auto) Absolute Nucleated RBC Total Counted Neutrophils % (Manual) Band Neutrophils % Lymphocytes % (Manual) Monocytes % (Manual) Nucleated RBC % Abs Neuts (Manual) Abs Lymphs (Manual) Abs Monocytes (Manual) Nucleated RBCs Platelet Estimate Poikilocytosis Ovalocytes Clementina Cells Puncture Site Left radial ABG pH 7.479 H ABG pCO2 27.0 L ABG pO2 37.0 L* ABG PO2/FiO2 Ratio 0.77 ABG HCO3 19.6 L ABG O2 Saturation 76.1 L* ABG O2 Content 8.9 L ABG Base Excess -3.1 A-a Gradient 274.7 Oxyhemoglobin 71.9 L Carboxyhemoglobin Methemoglobin Reduced Hemoglobin Total Hemoglobin 8.8 L O2 Delivery Device Nasal cannula O2 Liters/Min 7.0 FiO2 48 Sodium Potassium Chloride Carbon Dioxide Anion Gap BUN Creatinine Estim Creat Clear Calc Estimated GFR Glucose POC Capillary Glucose 108 H 123 H Lactic Acid Calcium Phosphorus Magnesium Total Bilirubin AST ALT Alkaline Phosphatase Troponin I C-Reactive Protein NT-Pro-B Natriuret Pep Total Protein Albumin Lipase Procalcitonin 05/31/21 05/31/21 05/31/21 13:28 13:28 13:29 WBC 6.0 RBC 2.45 L Hgb 8.4 L Hct 25.0 L MCV 102.0 H MCH 34.3 H MCHC 33.6 RDW 16.4 H Plt Count 191 MPV 10.9 H Immature Gran % (Auto) 0.8 H Neut % (Auto) 76.5 H Lymph % (Auto) 17.4 L Arthur % (Auto) 3.5 Eos % (Auto) 1.5 Baso % (Auto) 0.3 Lymph # (Auto) 1.04 Arthur # (Auto) 0.2 Eos # (Auto) 0.1 Baso # (Auto) 0.0 Abs Immat Gran (auto) 0.05 H Absolute Neuts (auto) 4.6 Absolute Nucleated RBC 0.1 H Total Counted Neutrophils % (Manual) Band Neutrophils % Lymphocytes % (Manual) Monocytes % (Manual) Nucleated RBC % 1.3 H Abs Neuts (Manual) Abs Lymphs (Manual) Abs Monocytes (Manual) Nucleated RBCs Platelet Estimate Poikilocytosis Ovalocytes Clementina Cells Puncture Site ABG pH ABG pCO2 ABG pO2 ABG PO2/FiO2 Ratio ABG HCO3 ABG O2 Saturation ABG O2 Content ABG Base Excess A-a Gradient Oxyhemoglobin Carboxyhemoglobin Methemoglobin Reduced Hemoglobin Total Hemoglobin O2 Delivery Device O2 Liters/Min FiO2 Sodium 133 L Potassium 3.8 Chloride 106 Carbon Dioxide 21 L Anion Gap 6 L BUN 15 Creatinine 0.70 Estim Creat Clear Calc 39 Estimated GFR > 60 Glucose 115 H POC Capillary Glucose Lactic Acid Calcium 7.5 L Phosphorus Magnesium Total Bilirubin 1.8 H AST 25 ALT 16 Alkaline Phosphatase 92 Troponin I < 0.012 C-Reactive Protein 0.7 NT-Pro-B Natriuret Pep 874 H Total Protein 5.0 L Albumin 2.1 L Lipase Procalcitonin 05/31/21 05/31/21 05/31/21 13:29 13:29 17:31 WBC RBC Hgb Hct MCV MCH MCHC RDW Plt Count
--- NOTE | 2021-06-01 09:51 | PM.IMPN ---
Progress Note: A&P Assessment and Plan (1) Septic shock: Code(s): A41.9 - Sepsis, unspecified organism; R65.21 - Severe sepsis with septic shock Status: Acute Assessment and Plan: Returned to the room due 05/31 due to patient hypotensive at 67/36. Procal 0.1. LA 2.1 but climbed to 3.6. EKG no significant change and Trop negative. WBC was normal but now at 44K today. Treated with IV fluids with improvement but required levophed later int he evening. Today, she remains on levophed 5. Discussed with strategy execution consultant and appreciate his input. (2) Acute respiratory failure with hypoxemia: Code(s): J96.01 - Acute respiratory failure with hypoxia Status: Acute Assessment and Plan: Patient was 99% on room air prior to Endoscopy on 05/31 but was noted to be hypoxic in recovery. CXR shwoing the development of moderate left perihilar airspace disease probably pneumonia. ABG 7.48//37 on 7L. Patient was hypothermic as well so Betty Huyolandaer ordered. Concern for aspiration PNA. Neb treatments added. Changed to NRB mask with HFNC but able to wean just to HFNC. Repeat BCx pending. Continue broad spectrum abx and wean o2 as toerlated. (3) Hypoglycemia: Code(s): E16.2 - Hypoglycemia, unspecified Status: Resolved Assessment and Plan: Glucose dropped to 22 last night most likely related to the sepsis picture. Dextrose started glucose is better controlled now. She is off all anti hyperglycemic medications. Monitor closely. (4) Pneumonia: Qualifiers: Laterality: unspecified laterality Lung location: unspecified part of lung Pneumonia type: due to unspecified organism Qualified Code(s): J18.9 - Pneumonia, unspecified organism Code(s): J18.9 - Pneumonia, unspecified organism Status: Acute Assessment and Plan: CXR on admission showed airspace opacities in the right mid and lower lung zones as well as a left lower lung zone. CT of the abdomen showed right basilar airspace disease suspicious for pneumonia and small right pleural effusion. Patient was started on levofloxacin. Blood cultures 05/27 negative to date. Bedside swallow study 05/30 was normal. Patietnt returned from Endoscopy and was hypoxic. Repeat CXR now showing development of moderate left perihilar airspace disease probably pneumonia. As above. Abx adjusted. (5) Cirrhosis: Code(s): K74.60 - Unspecified cirrhosis of liver Status: Acute Assessment and Plan: CT scan showing liver cirrhosis. CT of the abd 10/28/20 did not make mention of cirrhosis but CT scan in June 2020 did show hepatomegaly and probable portal hypertension with cirrhosis. Suspect this is chronic finding. INR was 2.3 on admission related to Eliquis and her cirrhosis. Albumin was 2.7 but dropped to 1.9 today. Total bili is elevated but stable at the 1.7-2.0 range. LFTs otherwise normal. Discussed with strategy execution consultant about adding albumin to help with her blood pressure and edema. (6) Anemia: Code(s): D64.9 - Anemia, unspecified Status: Acute Assessment and Plan: Patient with a chronic anemia with baseline hemoglobin in the 9-10 range. Hemoglobin however was 8.1 on admission here and dropped to 6.9 (05/29) consistent with acute blood loss anemia. She was on Eliquis which was held. She was guaiac positive. She has previously been diagnosed with pancreas cancer and breast cancer, currently being evaluated by the Dr Gonzales. Patient is supposed to be on the weekly dose of Epogen which was resumed. B12/Folate normal. Fe 21, TIBC 215, 10% Sat. Given 1U PRBC blood transfusion on 05/29/21. A stool occult blood was positive and GI was consulted. EGD 05/31 showing severe diffuse esophagitis and mild duodenitis. [place] showing diverticulosis and a single colon polyp that was removed. Hgb 7.5 today but felt related to the IV fluids and not acute blood loss. Monitor serial HH. (7) Esophagitis: Code(s): K20
[2021-06-01] MEDS: SODIUM BICARBONATE 8.4% 150 MEQ in DEXTROSE 5% 1,000 ML 950 ML 100 MEQ IV CONT (10:13)
[2021-06-01] MEDS: CALCIUM GLUC 2,000 MG/NS 100ML 2,000 MG/100 ML BAG 100 MG IVPB (10:14)
--- NOTE | 2021-06-01 10:27 | WPDCNINT ---
Assessment and Plan Assessment and plan (1) Acute respiratory failure with hypoxemia: Code(s): J96.01 - Acute respiratory failure with hypoxia Status: Acute Assessment and Plan: Acute worsening of hypoxia and respiratory distress post EGD and colonoscopy. CT showed Extensive bilateral pulmonary infiltrates/consolidation, greater on the left. These findings support diagnosis of aspiration pneumonia and sepsis currently saturating on 15 L nasal cannula but does have some increased work of breathing. She states she feels better as compared to yesterday and denies difficulty breathing at this time. Will closely monitor patient may need to use noninvasive positive pressure ventilation for work of breathing if needed. Patient is not sure about intubation and would like to discuss it again with her but as of now she is agreeable if needed in emergency although she does not want CPR in the event of cardiac arrest. Continue bronchodilators continue broad-spectrum antibiotics in the form vancomycin Zosyn she is on IV fluids (2) Septic shock: Code(s): A41.9 - Sepsis, unspecified organism; R65.21 - Severe sepsis with septic shock Status: Acute Assessment and Plan: secondary to aspiration pneumonia patient was given 2 L saline bolus 1 before transfer to ICU and 1 after arrival. she was responsive to fluid bolus on [place]ET[place]. Patient is overall volume overloaded as evidence by presence of abdominal and pelvic wall edema but is third-spacing. Will use fluids cautiously and conservatively considering her respiratory status continue Levophed titration to maintain map I will add 25% albumin (3) Esophagitis: Code(s): K20.90 - Esophagitis, unspecified without bleeding Status: Acute Assessment and Plan: continue PPI (4) Occult blood in stools: Code(s): R19.5 - Other fecal abnormalities Status: Acute Assessment and Plan: patient underwent EGD and colonoscopy and referred to the results above continue PPI polyp was removed and sent for pathology (5) Hypoglycemia: Code(s): E16.2 - Hypoglycemia, unspecified Status: Resolved Assessment and Plan: currently on D5 and NPO (6) STEVE (acute kidney injury): Code(s): N17.9 - Acute kidney failure, unspecified Status: Acute Assessment and Plan: improved since admission to the hospital monitor urine output creatinine and electrolytes (7) Anasarca: Code(s): R60.1 - Generalized edema Status: Acute Assessment and Plan: likely secondary to cirrhosis and low albumin level (8) Anemia: Code(s): D64.9 - Anemia, unspecified Status: Acute Assessment and Plan: monitor hemoglobin transfuse for less than 7 (9) Acidosis: Code(s): E87.2 - Acidosis Status: Acute Assessment and Plan: metabolic acidosis from STEVE, sepsis, hyperchloremia. I will change to D5 with bicarb (10) Electrolyte abnormality: Code(s): E87.8 - Other disorders of electrolyte and fluid balance, not elsewhere classified Status: Acute Assessment and Plan: replace low calcium potassium and phosphate Additional Plan DVT prophylaxis - SCDs Stress ulcer prophylaxis - PPI Nutrition - NPO Code Status - I discussed code status with patient and she states she wants to be DNR and does not want CPR or resuscitation in the event of cardiac arrest but she is not sure about intubation and mechanical ventilation. At this point she would like to be intubated if needed unless she changes her mind after discussing with her today. Code status was changed appropriately in the chart. Case discussed with Dr. Tam. Total Critical Care Time - 35 minutes Due to a high probability of clinically significant, life threatening deterioration, the patient required my highest level of preparedness to intervene emergently and I personally
[2021-06-01] MEDS: ALBUMIN HUMAN 25% 25 GM/100 ML 100 ML IVPB ×2 (11:35→18:31)
[2021-06-01] MEDS: POTASSIUM PHOS,M-BASIC-D-BASIC 20 MMOL in SODIUM CHLORIDE 0.9% IV 250 ML 64.17 MMOL IVPB (11:36)
[2021-06-01 11:46] LABS: Glucose Point of Care 151 mg/dl (65-105)
[2021-06-01] MEDS: PANTOPRAZOLE SODIUM IV 40 MG VIAL IV PUSH ×2 (11:49→21:57)
--- NOTE | 2021-06-01 12:03 | PCDIET ---
Nutrition Follow-Up Complete: Nutrition Diagnosis: Underweight related to cancer as evidenced by BMI of 16.6. Nutrition Goal: Intake of at least 75% of meals/supplements. Goal not met. Patient currently NPO on high flow oxygen. Will follow closely for diet advancement/tolerance, if able. Last recorded weight is 51.8 kg which is significantly increased from last review. +I/O. Monitoring. Bowel Motility: Last documented BM on 05/31/21 x 4. Labs Reviewed: WBC (44.1), RBC (2.16), Hgb (7.5), Hct (21.9), Glu (149), Na (130), Alb (1.9), PO4 (2.3), Mg (2.5) Meds Noted: Potassium Phosphate, Albuterol, Retacrit, Levophed, Protonix, Zosyn, Vancomycin, NS at 100mL/hr Additional Notes: No documented skin breakdown. Will continue to monitor with same goal. Nutrition Monitoring and Evaluation: Follow up every 3 days.
--- NOTE | 2021-06-01 12:25 | WPDGIPROGNO ---
Progress Note: A&P Assessment and Plan (1) Esophagitis: Code(s): K20.90 - Esophagitis, unspecified without bleeding Status: Acute Assessment and Plan: egd with severe esophagitis yesterday iv protonix bid npo for now because had aspiration and worsening pneumonia, now in icu but better probably will need swallowing study (2) Pneumonia: Qualifiers: Laterality: unspecified laterality Lung location: unspecified part of lung Pneumonia type: due to unspecified organism Qualified Code(s): J18.9 - Pneumonia, unspecified organism Code(s): J18.9 - Pneumonia, unspecified organism Status: Acute Assessment and Plan: CT scan reviewed, on iv antibiotics (3) Acute respiratory failure with hypoxemia: Code(s): J96.01 - Acute respiratory failure with hypoxia Status: Acute Assessment and Plan: on treatment, stable (4) Septic shock: Code(s): A41.9 - Sepsis, unspecified organism; R65.21 - Severe sepsis with septic shock Status: Acute Assessment and Plan: required levophed, better now (5) Cirrhosis: Code(s): K74.60 - Unspecified cirrhosis of liver Status: Acute Assessment and Plan: found on imaging no varices (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 Yesterday had aspiration with more shortness of breath and transferred to ICU. CXR showed more infiltrated. She is comfortable now. Review of Systems Review of Systems: All systems reviewed & are unremarkable except as noted in HPI and below Exam Const: General: ill appearing chronically Other: using oxygen NC HENMT: General nose exam: Normal nares present Eyes: Pupils: Equal, round and reactive pupils present Neck: Neck: supple Resp: Auscultation: crackles and wheezes Cardio: Rate: regular rate GI: GI Palp: Yes Soft to palpation and No Tenderness to palpation present (GI) Auscultation: normal bowel sounds Skin: General skin exam: no rashes or lesions noted Neuro: Speech: normal speech Motor exam (neuro): Normal motor muscle tone present throughout Extrem: General: normal to inspection Psych: Mental Status: mental status grossly normal Objective Data Vital Signs Vital Signs: Vital Signs - 24 hr 05/31/21 12:30 05/31/21 12:45 05/31/21 13:00 Temperature 96 F L 96.4 F L 96.7 F L Pulse Rate Respiratory Rate Blood Pressure Pulse Oximetry 05/31/21 13:15 05/31/21 13:30 05/31/21 13:45 Temperature 96.4 F L 96.5 F L 96.7 F L Pulse Rate Respiratory Rate Blood Pressure Pulse Oximetry 05/31/21 14:00 05/31/21 14:15 05/31/21 14:30 Temperature 96.7 F L 96.7 F L 96.7 F L Pulse Rate Respiratory Rate Blood Pressure Pulse Oximetry 05/31/21 14:31 05/31/21 14:37 05/31/21 14:45 Temperature 96.7 F L Pulse Rate 115 H 110 H Respiratory Rate 18 18 Blood Pressure Pulse Oximetry 95 05/31/21 16:00 05/31/21 16:30 05/31/21 16:44 Temperature 97.7 F 97.5 F L Pulse Rate 107 H Respiratory Rate 18 Blood Pressure 67/36 L 84/41 L Pulse Oximetry 94 05/31/21 17:30 05/31/21 18:00 05/31/21 20:00 Temperature 97.1 F L 97.5 F L Pulse Rate 91 87 Respiratory Rate 18 20 Blood Pressure 100/60 90/54 L 80/48 L Pulse Oximetry 99 100 100 05/31/21 21:00 05/31/21 22:00 05/31/21 22:03 Temperature Pulse Rate 81 99 100 Respiratory Rate 25 H 26 H 24 H Blood Pressure 99/49 L 125/61 Pulse Oximetry 98 95 05/31/21
[2021-06-01 12:53] LABS: Hematocrit 19.5 % (37.0-47.0)
[2021-06-01 12:54] LABS: Hemoglobin 6.7 g/dL (12.0-15.0)
[2021-06-01 13:03] LABS: INR 2.9; Prothrombin Time 29.6 Seconds (11.1-14.7)
--- NOTE | 2021-06-01 15:20 | PCOTNOTE ---
Per RN, patient moved down to ICU following series of medical decline, per RN patient on hold for therapy today. Will follow up with plan of care tomorrow, 06/02/21 or get hold orders as appropriate.
[2021-06-01 17:10] LABS: Glucose Point of Care 158 mg/dl (65-105)
[2021-06-01 18:30] LABS: Hematocrit 27.6 % (37.0-47.0); Hemoglobin 9.2 g/dL (12.0-15.0)
[2021-06-01] MEDS: LATANOPROST 0.005% OP SOLN 2.5 ML BTL 1 DROP EACH EYE (21:57)
[2021-06-01 22:12] LABS: Glucose Point of Care 150 mg/dl (65-105)
[2021-06-02] VITALS (39 sets, daily range): BP systolic 93–124; BP diastolic 50–71; PULSE 64–110; RESP 22–42; TEMP 34.3–36.4; O2SAT 83–100
[2021-06-02] MEDS: ALBUMIN HUMAN 25% 25 GM/100 ML 100 ML IVPB ×2 (00:22→06:35)
[2021-06-02 00:58] LABS: Hematocrit 24.1 % (37.0-47.0); Hemoglobin 8.3 g/dL (12.0-15.0)
[2021-06-02] MEDS: ALBUTEROL SULFATE NEB 2.5 MG/0.5 ML INH 5 MG INHALATION ×4 (02:03→19:28)
[2021-06-02] MEDS: SODIUM BICARBONATE 8.4% 150 MEQ in DEXTROSE 5% 1,000 ML 950 ML 100 MEQ IV CONT (02:29)
--- NOTE | 2021-06-02 05:21 | PM.EVENT ---
Event Note Event Note Event Note: called for hypoxia. tachypnea. oxygen in mid 80s, on HF nC and NRM. pateint in mild to moderate resp distresss. alert and conversant. stat cxr with congestive changes worsening compared to yesterday. will hold fluid. left arm edematous noted. will give a dose of lasix. albuterol neb. if not improved with it, start BIPAP /6. other vitals were okay. will place calabrese catheter. multifocal pneumonia. recent transfusion. already on vancomycin and zosyn.
[2021-06-02] MEDS: ALBUTEROL SULFATE NEB 2.5 MG/0.5 ML INH 5 MG (05:42)
[2021-06-02 06:33] LABS: Hematocrit 25.8 % (37.0-47.0); Hemoglobin 8.6 g/dL (12.0-15.0); Mean Corpuscular HGB Conc 33.3 g/dl (32-36); Mean Corpuscular Hemoglobin 32.3 pg (26-34); Mean Platelet Volume 10.7 fl (7.4-10.4); Platelet Count Result 113 k/mm3 (150-375); Red Blood Count 2.66 M/mm3 (4.2-5.4); White Blood Count 36.4 K/mm3 (4.5-10.0)
[2021-06-02] MEDS: FUROSEMIDE INJ 40 MG/4 ML VIAL IV PUSH (06:34)
[2021-06-02 06:52] LABS: Alanine Aminotransferase 11 U/L (4-35); Alkaline Phosphatase 54 U/L (38-126); Anion Gap 8 mmol/L (8-16); Aspartate Amino Transferase 18 U/L (14-36); Blood Urea Nitrogen 14 mg/dL (7-17); Calcium 7.5 mg/dL (8.4-10.2); Carbon Dioxide 22 mmol/L (22-30); Chloride 104 mmol/L (98-107); Estimated CRCL calculation 37 ml/min; Estimated Glomerular Filt Rate > 60; Glucose 198 mg/dL (65-110); Potassium 3.3 mmol/L (3.4-5.0); Sodium 134 mmol/L (137-145)
[2021-06-02 07:54] LABS: Band Neutrophils Percent 4 % (0-6); Lymphocytes Absolute Manual 0.72 K/mm3 (1.1-4.5); Monocytes Absolute Manual 0.72 K/mm3 (0.1-0.90); Monocytes Percent Manual 2 % (3-9); Neutrophils Absolute Manual 34.94 K/mm3 (1.7-7.2); Neutrophils Percent Manual 92 % (46-73); Nucleated Red Blood Cells 1 %; Total Cells Counted 100
[2021-06-02 07:57] LABS: Ovalocytes 1+ (NORMAL); Platelet Estimate Decreased (Adequate)
[2021-06-02 07:58] LABS: Burr Cells 1+ (NORMAL)
[2021-06-02 07:59] LABS: Acanthocytes 1+ (NORMAL)
[2021-06-02] MEDS: PANTOPRAZOLE SODIUM IV 40 MG VIAL IV PUSH ×2 (08:38→20:06)
[2021-06-02 08:42] LABS: Glucose Point of Care 184 mg/dl (65-105)
[2021-06-02 08:55] LABS: Alveolar/Arterial O2 Gradient 543.2 mmHg; Base Excess ABG -4.3 mEq/l (+/-2.0); Device BIPAP; Fractional Inspired Oxygen 100 %; HCO3 ABG 21.6 mEq/l (22.0-26.0); Modified Allen's Test Pass; Oxygen Content ABG 12.6 %vol (16.0-22.0); Oxygen Saturation ABG 98.3 % (95.0-100.0); Oxyhemoglobin 96.7 % THb (90.0-100.0); PCO2 ABG 42.7 mmHg (35.0-45.0); PO2 ABG 127.1 mmHg (80.0-100.0); PO2 FiO2 Ratio Arterial Blood 1.27 %; Site Drawn RIGHT RADIAL; Total Hemoglobin 9.1 g/dL (12.0-18.0); pH ABG 7.321 (7.350-7.450)
[2021-06-02 08:56] LABS: Expiratory Pressure 7 cmH2O; Inspiratory Pressure 14 cmH2O
--- NOTE | 2021-06-02 10:31 | WPDINTPN ---
Progress Note: A&P Assessment and Plan (1) Acute respiratory failure with hypoxemia: Code(s): J96.01 - Acute respiratory failure with hypoxia Status: Acute Assessment and Plan: Acute worsening of hypoxia and respiratory distress post EGD and colonoscopy. CT showed Extensive bilateral pulmonary infiltrates/consolidation, greater on the left. These findings support diagnosis of aspiration pneumonia and sepsis overnight her hypoxia became worse and she is now on BiPAP. this could be worsening of her pneumonia versus component of pulmonary edema. IV fluids have been discontinued. s Lasix given. I will order another dose of Lasix today. ABG done and patient was trialed on Airvo but she could not maintain her saturation and hence was placed back on BiPAP. monitor closely as patient may need intubation and invasive mechanical ventilation Continue bronchodilators continue broad-spectrum antibiotics in the form vancomycin andZosyn (2) Septic shock: Code(s): A41.9 - Sepsis, unspecified organism; R65.21 - Severe sepsis with septic shock Status: Acute Assessment and Plan: secondary to aspiration pneumonia she was given IV fluids yesterday but appears to have volume overload now off vasopressor this time IV fluids has been discontinued and patient has been given Lasix monitor blood pressure and start Levophed if needed (3) Esophagitis: Code(s): K20.90 - Esophagitis, unspecified without bleeding Status: Acute Assessment and Plan: continue PPI (4) Occult blood in stools: Code(s): R19.5 - Other fecal abnormalities Status: Acute Assessment and Plan: patient underwent EGD and colonoscopy and referred to the results above continue PPI polyp was removed and sent for pathology (5) Hypoglycemia: Code(s): E16.2 - Hypoglycemia, unspecified Status: Resolved Assessment and Plan: improved. she is currently NPO so may need additional infusion if hypoglycemia recurs (6) STEVE (acute kidney injury): Code(s): N17.9 - Acute kidney failure, unspecified Status: Acute Assessment and Plan: improved since admission to the hospital monitor urine output creatinine and electrolytes (7) Anasarca: Code(s): R60.1 - Generalized edema Status: Acute Assessment and Plan: likely secondary to cirrhosis and low albumin level on Lasix (8) Anemia: Code(s): D64.9 - Anemia, unspecified Status: Acute Assessment and Plan: she was transfuse 1 unit of packed red cells yesterday. transfuse for less than 7 (9) Acidosis: Code(s): E87.2 - Acidosis Status: Acute Assessment and Plan: metabolic acidosis from STEVE, sepsis, hyperchloremia. improved with bicarb (10) Electrolyte abnormality: Code(s): E87.8 - Other disorders of electrolyte and fluid balance, not elsewhere classified Status: Acute Assessment and Plan: replace low potassium Additional Plan DVT prophylaxis - SCDs Stress ulcer prophylaxis - PPI Nutrition - NPO Code Status - I discussed code status with patient and she states she wants to be DNR but is okay with intubation if needed. I spoke to patient's at bedside today and updated him with patient's current status and our treatment plan and possibility of her needing intubation and mechanical ventilation Case discussed with Dr. Tam. Total Critical Care Time - 32 minutes Due to a high probability of clinically significant, life threatening deterioration, the patient required my highest level of preparedness to intervene emergently and I personally spent this critical care time directly and personally managing the patient. This critical care time included obtaining a history; examining the patient; pulse oximetry; ordering and review of studies; arranging urgent treatment with development of a management plan; evaluation of patient
--- NOTE | 2021-06-02 11:40 | PM.IMPN ---
Progress Note: A&P Assessment and Plan (1) Septic shock: Code(s): A41.9 - Sepsis, unspecified organism; R65.21 - Severe sepsis with septic shock Status: Acute Assessment and Plan: Patient became hypotensive at 67/36 on 05/31. Procalcitonin 0.1. LA 2.1 but climbed to 3.6. EKG no significant change and Trop negative. WBC was normal but climbed to 44K but better today. Treated with IV fluids with improvement but required Levophed. More stable and was able to be weaned off the levophed. Discussed with cartoon designer and appreciate his input. (2) Acute respiratory failure with hypoxemia: Code(s): J96.01 - Acute respiratory failure with hypoxia Status: Acute Assessment and Plan: Patient was 99% on room air prior to Endoscopy on 05/31 but was noted to be hypoxic in recovery area. CXR showed worsening airspace disease worse on the left. ABG 7.48/27/37 on 7L. Patient was hypothermic as well so Betty Hugger ordered. Concern for aspiration PNA but CXR now more concerning for the development of ARDS. Continue neb treatments. Continue BiPAP and wean as tolerated. BCx NGTD. Continue broad spectrum abx. (3) Hypoglycemia: Code(s): E16.2 - Hypoglycemia, unspecified Status: Resolved Assessment and Plan: Glucose dropped to 22 05/31 most likely related to the sepsis picture. Dextrose started and glucose is better controlled now. She is off all anti hyperglycemic medications. Monitor closely. (4) Pneumonia: Qualifiers: Laterality: unspecified laterality Lung location: unspecified part of lung Pneumonia type: due to unspecified organism Qualified Code(s): J18.9 - Pneumonia, unspecified organism Code(s): J18.9 - Pneumonia, unspecified organism Status: Acute Assessment and Plan: CXR on admission showed airspace opacities in the right mid and lower lung zones as well as a left lower lung zone. CT of the abdomen showed right basilar airspace disease suspicious for pneumonia and small right pleural effusion. Patient was started on levofloxacin. Blood cultures 05/27 negative. Bedside swallow study 05/30 was normal. Patient returned from Endoscopy and was hypoxic. Repeat CXR showed worsening infiltrates and now concerning for ARDS felt related to aspiration event in endoscopy. As above. Abx adjusted. (5) Cirrhosis: Code(s): K74.60 - Unspecified cirrhosis of liver Status: Acute Assessment and Plan: CT scan here showing liver cirrhosis. CT of the abd 10/28/20 did not make mention of cirrhosis but CT scan in June 2020 did show hepatomegaly and probable portal hypertension with cirrhosis. Suspect this is chronic finding. INR was 2.3 on admission related to Eliquis and her cirrhosis. Albumin was 2.7 but dropped to 1.9; Albumin IV given with improvement. Total bili was elevated but stable at the 1.7-2.0 range but now at 3.0. LFTs otherwise normal. Follow. (6) Anemia: Code(s): D64.9 - Anemia, unspecified Status: Acute Assessment and Plan: Patient with a chronic anemia with baseline hemoglobin in the 9-10 range. Hemoglobin however was 8.1 on admission here and dropped to 6.9 (05/29) consistent with acute blood loss anemia. She was on Eliquis which was held. She was guaiac positive. She has previously been diagnosed with pancreas cancer and breast cancer, currently being evaluated by the Dr Gonzales. Patient is supposed to be on the weekly dose of Epogen which was resumed. B12/Folate normal. Fe 21, TIBC 215, 10% Sat. Given 1U PRBC blood transfusion on 05/29/21. A stool occult blood was positive and GI was consulted. EGD 05/31 showing severe diffuse esophagitis and mild duodenitis. [place] showing diverticulosis and a single colon polyp that was removed. Hgb 6.7 yesterday and she received 1U PRBC. Hgb 8.6 today. Monitor serial HH. (7) Esophagitis: Code(s): K20.90 - Esophagitis, unspecified without bleeding Status: Acute
--- NOTE | 2021-06-02 12:09 | P.PCNBED_ITS ---
Procedures Intubation Intubation Date: 06/02/21 Intubation Time: 11:30 Consent: Verbal consent was obtained from patient and patient's who was at bedside A pre-procedural Time-Out was completed immediately before starting the procedur e and confirmed: Patient Identification, Site, Procedure, Patient Position and the Availability of Requisite Equipment: Yes Sedative: etomidate Mg given: 20 Paralytic: succinylcholine Mg given: 100 Laryngoscope: fiber optic video scope Assist device used: fiber optic device ET tube size: 8 Tube secured depth (cm): 24 Tube secured location: lips Tube placement confirmation: visualized tube passing through cords, equal breath sounds bilaterally, no breath sounds over epigastrium and confirmation by capnometry Patient tolerated procedure: well Additional comments: chest x-ray reviewed and ETT withdrew by 2 cm
--- NOTE | 2021-06-02 12:11 | WPDPROCEDUR ---
Procedures Central Line Placement Right Femoral: Central Line Date: 06/02/21 Central Line Time: 11:45 Discussed w/ the patient/family/POA,the placement of a central venous catheter, including its clinical necessity/indication & associated potential risks, benifits and alternatives.: Yes The patient/family/POA understand(s) and acknowledge(s) the need to proceed with central venous catheter insertion as an important element of the patient's clinical management.: Yes Consent: consent was obtained from patient's Time Out Performed: Yes Patient Position: supine Patient placed on monitor/pulse ox: Yes Provider Prep: mask, sterile gown, sterile gloves, Max. sterile barrier precautions, cap and hand hygiene with conventional soap/water or alcohol based hand rub Central line prep: 2% Chlorhexidine scrub Sterile US Technique with sterile gel/sterile probe covers: Yes Central line lumen inserted: triple Length (cm): 16 Depth of Insertion (cm): 16 Post Procedure: sutured in place, good blood return, all ports aspirated, flushed, capped, transparent dressing, hemostatic product, antimicrobial product and aseptic technique maintained throughout procedure Patient tolerated procedure: well Complications: none
--- NOTE | 2021-06-02 12:12 | PM.EVENT ---
Event Note Event Note Event Note: patient despite BiPAP continued to remain hypoxic and was not able to get her saturations up to above 90. She appeared tired with low tidal volumes. I spoke to patient and her and recommended intubation at this time and they both were agreeable. Patient was intubated large number of secretions were seen during intubation which was suctioned out and post intubation were suctioned from ET tube. Patient was hypotensive post intubation and was started on Levophed. patient had poor IV access in the form of only port-o-cath. a right femoral central venous catheter was placed emergently After obtaining consent from patient's who was waiting in the waiting room. Chest x-ray reviewed. ABGs pending Additional critical care time said procedures 25 minutes
[2021-06-02] MEDS: MIDAZOLAM 100MG/NS 100ML(*CRX) 100 MG/100 ML BAG 6 MG IV CONT (12:18)
[2021-06-02] MEDS: fentaNYL CITRATE INJ (*CRX) 100 MCG/2 ML VIAL 50 MCG IV PUSH (12:19)
[2021-06-02] MEDS: SODIUM CHLORIDE 0.9% IV 500 ML IV CONT (12:25)
[2021-06-02 12:34] LABS: Glucose Point of Care 148 mg/dl (65-105)
[2021-06-02 12:38] LABS: Alveolar/Arterial O2 Gradient 586.1 mmHg; Fractional Inspired Oxygen 100 %; Oxygen Content ABG 12.6 %vol (16.0-22.0)
[2021-06-02 12:39] LABS: Device VENTILATOR; Modified Allen's Test Pass; Site Drawn RIGHT RADIAL
[2021-06-02 12:40] LABS: Arterial Blood Gas PEEP 5 cmH2O; Arterial Blood Gas Tidal Volume 350 ml; Arterial Blood Gas Vent Mode CMV; Arterial Blood Gas Ventilator rate 24 /MIN
--- NOTE | 2021-06-02 13:11 | PCOTNOTE ---
Pt. being d/c from therapy due to decline. Pt. currently intubated. Will evaluate when medically stable, and evaluation reordered
[2021-06-02 13:47] LABS: PCO2 ABG 48.4 mmHg (35.0-45.0); PO2 ABG 78.5 mmHg (80.0-100.0)
[2021-06-02 13:48] LABS: Base Excess ABG -5.1 mEq/l (+/-2.0); HCO3 ABG 21.7 mEq/l (22.0-26.0); Oxygen Saturation ABG 93.9 % (95.0-100.0)
[2021-06-02 13:49] LABS: Carboxyhemoglobin 0.2 % THb (0-2.0); Methemoglobin ABG 0.4 %THb (0-1.5); Oxyhemoglobin 92.8 % THb (90.0-100.0); PO2 FiO2 Ratio Arterial Blood 0.79 %; Reduced Hemoglobin 6.6 %THb (0-5.0); Total Hemoglobin 9.6 g/dL (12.0-18.0)
[2021-06-02 13:52] LABS: Device VENTILATOR; Fractional Inspired Oxygen 100 %; HCO3 VBG 21.5 mEq/l (24.0-30.0); PCO2 VBG 54.2 mmHg (42.0-48.0); PO2 VBG 56.3 mmHg (35.0-45.0); pH VBG 7.217 (7.300-7.400)
[2021-06-02 13:54] LABS: Arterial Blood Gas PEEP 5 cmH2O; Arterial Blood Gas Tidal Volume 350 ml; Arterial Blood Gas Vent Mode CMV; Arterial Blood Gas Ventilator rate 24 /MIN
[2021-06-02] MEDS: CENTRAL LINE FLUSH 10 ML IV PUSH ×3 (14:31→20:06)
[2021-06-02] MEDS: FENTANYL 2,500MCG/NS250ML(*CRX 2,500 MCG/250 ML BAG 10 MCG IV CONT (15:00)
[2021-06-02] MEDS: SODIUM BICARBONATE 8.4% 50 MEQ/50 ML SYRINGE 100 MEQ IV PUSH (15:49)
[2021-06-02] MEDS: VASOPRESSIN INJ 100 UNITS in DEXTROSE 5% 95 ML IV CONT (15:49)
--- NOTE | 2021-06-02 16:17 | WPDGIPROGNO ---
Progress Note: A&P Assessment and Plan (1) Acute respiratory failure with hypoxemia: Code(s): J96.01 - Acute respiratory failure with hypoxia Status: Acute Assessment and Plan: she is intubated now, broad spectrum abx she came to hospital with pneumonia and worsening infiltrated egd showed severe esophagitis, bx showed julianna (2) Septic shock: Code(s): A41.9 - Sepsis, unspecified organism; R65.21 - Severe sepsis with septic shock Status: Acute Assessment and Plan: on pressors and intubated she is immunocompromised with h/o pancreatic cancer (3) Julianna esophagitis: Code(s): B37.81 - Candidal esophagitis Status: Acute Assessment and Plan: start iv diflucan (4) Cirrhosis: Code(s): K74.60 - Unspecified cirrhosis of liver Status: Acute Assessment and Plan: repeat inr (elevated probably from use of eliquis) monitor cbc- had blood tranfusion (5) Anasarca: Code(s): R60.1 - Generalized edema Status: Acute (6) 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 Review of Systems Review of Systems: All systems reviewed & are unremarkable except as noted in HPI and below Exam Const: General: ill appearing chronically Other: sedated and intubated now HENMT: General nose exam: Normal nares present Other: ETT Eyes: Pupils: Equal, round and reactive pupils present Neck: Neck: supple Resp: Auscultation: crackles, rhonchi and wheezes Cardio: Rate: regular rate GI: GI Palp: Yes Soft to palpation and No Tenderness to palpation present (GI) Auscultation: normal bowel sounds Skin: General skin exam: no rashes or lesions noted Neuro: Other: sedated Extrem: General: pedal edema Psych: Mental Status: mental status grossly normal Objective Data Vital Signs Vital Signs: Vital Signs - 24 hr 06/01/21 16:19 06/01/21 16:26 06/01/21 17:26 Temperature 96.3 F L 96.7 F L 96.5 F L Pulse Rate 98 108 H 97 Respiratory Rate 25 H 21 H 23 H Blood Pressure 110/54 L 103/58 L 108/59 L Pulse Oximetry 91 91 90 06/01/21 18:00 06/01/21 18:29 06/01/21 20:00 Temperature 96.5 F L 97.2 F L Pulse Rate 97 94 106 H Respiratory Rate 26 H 22 H Blood Pressure 108/59 L 113/56 L Pulse Oximetry 95 92 06/01/21 20:04 06/01/21 20:09 06/01/21 20:14 Temperature Pulse Rate 105 H 104 H 105 H Respiratory Rate 23 H 23 H 24 H Blood Pressure Pulse Oximetry 94 06/01/21 22:00 06/02/21 00:00 06/02/21 02:00 Temperature 96.9 F L Pulse Rate 100 100 110 H Respiratory Rate 22 H 24 H 24 H Blood Pressure 112/64 119/67 119/56 L Pulse Oximetry 90 90 100 06/02/21 02:03 06/02/21 02:17 06/02/21 04:00 Temperature 97.5 F L Pulse Rate 105 H 107 H 103 H Respiratory Rate 22 H 26 H 26 H Blood Pressure 124/71 Pulse Oximetry 99 06/02/21 05:30 06/02/21 05:38 06/02/21 05:43 Temperature Pulse Rate 98 94 99 Respiratory Rate 33 H 31 H 27 H Blood Pressure Pulse Oximetry 95 06/02/21 06:00 06/02/21 08:00 06/02/21 08:10 Temperature 96.7 F L Pulse Rate 100 98 99 Respiratory Rate 32 H 32 H 36 H Blood Pressure 112/56 L 102/58 L Pulse Oximetry 98 99 06/02/21 08:28 06/02/21 08:30 06/02/21 09:42 Temperature Pulse Rate 99 99 94 Respiratory Rate 34 H 32 H 29 H Blood Pressure Pulse Oximetry 95 95 96 06/02/21 10:00 06/02/21 10:22 06/02/21 12:00 Temperature Pulse Rate 70 84 70 Respiratory Rate 33 H 31 H 23 H Blood Pressure 97/50 L 96/53 L Pulse Oximetry 94
[2021-06-02 18:38] LABS: Glucose Point of Care 157 mg/dl (65-105)
[2021-06-02] MEDS: MINERAL OIL/WHITE PETROLATUM OINTMENT 1 APPLIC EACH EYE (20:06)
[2021-06-02] MEDS: HYDROCORTISONE SODIUM SUCCINATE 100 MG/2 ML VIAL IV PUSH (20:06)
[2021-06-02] MEDS: LATANOPROST 0.005% OP SOLN 2.5 ML BTL 1 DROP EACH EYE (20:06)
[2021-06-02] MEDS: NOREPINEPHRINE 8 MG/D5W 250 ML 8 MG/250 ML BAG 28.13 MG IV CONT (20:06)
[2021-06-02] MEDS: MIDAZOLAM 100MG/NS 100ML(*CRX) 100 MG/100 ML BAG 10 MG IV CONT (22:54)
[2021-06-02 23:53] LABS: Glucose Point of Care 151 mg/dl (65-105)
[2021-06-03] VITALS (42 sets, daily range): BP systolic 86–121; BP diastolic 42–59; PULSE 61–85; RESP 26; TEMP 35.5–37.1; O2SAT 90–96; BMI 21.3
--- NOTE | 2021-06-03 | ECHOL_ITS ---
Patient Info Name: Lorraine Cedillo Age: 75 years : 1945 Gender: Female Ht: 64 in Wt: 218 lbs BSA: 2.16 m2 HR: 72 bpm BP: 105 / 57 mmHg Exam Date: 06/03/2021 1:34 PM Exam Location: [facility] Patient Status: Inpatient Admit Date: 05/29/2021 Staff Ordering Physician: Tanner Lane MD Integrated Circuit Design Engineer: Jarret Conteh RDCS, RT Attending Provider: Danielle San MD Exam Type: CA echo limited Study Info Indications I50.1 - Left ventricular failure Limited two-dimensional transthoracic echocardiogram is performed. Summary 1. Limited echocardiogram to assess LV function. 2. Left ventricular chamber dimension is normal. 3. Left ventricular systolic function is normal, estimated at 60-65%. 4. There is mildly increased left ventricular wall thickness. 5. The left ventricular diastolic function is grade I diastolic dysfunction. 6. E/e' 16 is elevated. Left Ventricle E/e' 16 is elevated. Limited echocardiogram to assess LV function. Left ventricular chamber dimension is normal. Left ventricular systolic function is normal, estimated at 60-65%. There is mildly increased left ventricular wall thickness. The left ventricular diastolic function is grade I diastolic dysfunction. Left Ventricular Outflow Tract Name Value Normal LVOT 2D LVOT Diameter 1.9 cm LVOT Doppler LVOT Peak Gradient 5 mmHg LVOT Mean Gradient 3 mmHg LVOT VTI 27 cm LVOT VTI/AV VTI Ratio 0.5 LVOT Stroke Volume 74 ml LVOT CO 4.9 l/min LVOT CI 2.3 l/min/m2 Mitral Valve Name Value Normal MV Doppler MV Decel Lee 399 cm/s2 MV PHT 74 ms MV Area (PHT) 3.0 cm2 4.0-5.0 MV Diastolic Function MV E Peak Velocity 102 cm/s MV A Peak Velocity 127 cm/s MV E/A 0.8 MV Decel Time 256 ms MV Annular TDI MV E/e' (Septal) 21.3 <=8.0 MV E/e' (Lateral) 13.3 <=8.0 MV E/e' (Average) 17.3 Tricuspid Valve Name Value Normal TV Regurgitation Doppler TR Peak Velocity 277 cm/s TR Peak Gradient 31 mmHg
[2021-06-03] MEDS: ALBUTEROL SULFATE NEB 2.5 MG/0.5 ML INH 5 MG INHALATION ×4 (01:19→20:14)
[2021-06-03 05:05] LABS: Alveolar/Arterial O2 Gradient 264.7 mmHg; Base Excess ABG -10.5 mEq/l (+/-2.0); Carboxyhemoglobin 0.3 % THb (0-2.0); Fractional Inspired Oxygen 50 %; HCO3 ABG 14.2 mEq/l (22.0-26.0); Methemoglobin ABG 0.5 %THb (0-1.5); Oxygen Content ABG 10.9 %vol (16.0-22.0); Oxygen Saturation ABG 90.4 % (95.0-100.0); Oxyhemoglobin 87.7 % THb (90.0-100.0); PCO2 ABG 27.4 mmHg (35.0-45.0); PO2 FiO2 Ratio Arterial Blood 1.22 %; Reduced Hemoglobin 11.5 %THb (0-5.0); Total Hemoglobin 8.8 g/dL (12.0-18.0); pH ABG 7.332 (7.350-7.450)
[2021-06-03 05:06] LABS: Device VENTILATOR; Modified Allen's Test Pass; Site Drawn RIGHT RADIAL
[2021-06-03 05:07] LABS: Arterial Blood Gas PEEP 8 cmH2O; Arterial Blood Gas Tidal Volume 380 ml; Arterial Blood Gas Vent Mode CMV; Arterial Blood Gas Ventilator rate 26 /MIN
[2021-06-03] MEDS: NOREPINEPHRINE 8 MG/D5W 250 ML 8 MG/250 ML BAG 35.63 MG IV CONT (05:15)
[2021-06-03] MEDS: CENTRAL LINE FLUSH 10 ML IV PUSH ×4 (05:16→20:42)
[2021-06-03] MEDS: HYDROCORTISONE SODIUM SUCCINATE 100 MG/2 ML VIAL IV PUSH ×3 (05:35→20:42)
[2021-06-03 05:37] LABS: Hematocrit 23.8 % (37.0-47.0); Hemoglobin 7.8 g/dL (12.0-15.0); Mean Corpuscular HGB Conc 32.8 g/dl (32-36); Mean Corpuscular Hemoglobin 33.2 pg (26-34); Mean Corpuscular Volume 101.3 fl (80-100); Mean Platelet Volume 11.9 fl (7.4-10.4); Platelet Count Result 121 k/mm3 (150-375); Red Blood Count 2.35 M/mm3 (4.2-5.4); Red Cell Distribution Width 20.3 % (11.5-14.5); White Blood Count 40.3 K/mm3 (4.5-10.0)
[2021-06-03 05:50] LABS: Prothrombin Time 47.8 Seconds (11.1-14.7)
[2021-06-03 05:51] LABS: Potassium 4.1 mmol/L (3.4-5.0)
[2021-06-03 05:58] LABS: INR 5.5
[2021-06-03 05:59] LABS: Alanine Aminotransferase 61 U/L (4-35); Albumin Level 2.5 g/dL (3.5-5.1); Alkaline Phosphatase 50 U/L (38-126); Anion Gap 16 mmol/L (8-16); Aspartate Amino Transferase 153 U/L (14-36); Bilirubin,Total 3.6 mg/dL (0.2-1.3); Blood Urea Nitrogen 19 mg/dL (7-17); Calcium 7.7 mg/dL (8.4-10.2); Carbon Dioxide 13 mmol/L (22-30); Chloride 105 mmol/L (98-107); Estimated CRCL calculation 26 ml/min; Estimated Glomerular Filt Rate 40; Glucose 156 mg/dL (65-110); Sodium 134 mmol/L (137-145)
[2021-06-03 06:14] LABS: Acanthocytes 2+ (NORMAL); Band Neutrophils Percent 2 % (0-6); Neutrophils Absolute Manual 39.89 K/mm3 (1.7-7.2); Neutrophils Percent Manual 97 % (46-73); Nucleated Red Blood Cells 3 %; Platelet Estimate Adequate (Adequate); Total Cells Counted 100
[2021-06-03 06:16] LABS: Anisocytosis 2+ (NORMAL)
[2021-06-03 06:17] LABS: Ovalocytes 2+ (NORMAL)
[2021-06-03] MEDS: PANTOPRAZOLE SODIUM IV 40 MG VIAL IV PUSH ×2 (08:03→20:41)
[2021-06-03] MEDS: MINERAL OIL/WHITE PETROLATUM OINTMENT 1 APPLIC EACH EYE ×2 (08:03→20:42)
[2021-06-03] MEDS: FLUCONAZOLE 100 MG/NACL 50 ML 100 MG/50 ML BTL 50 MG IVPB (08:10)
[2021-06-03] MEDS: SODIUM BICARBONATE 8.4% 50 MEQ/50 ML SYRINGE 100 MEQ IV PUSH (09:21)
--- NOTE | 2021-06-03 09:42 | WPDINTPN ---
Progress Note: A&P Assessment and Plan (1) Acute respiratory failure with hypoxemia: Code(s): J96.01 - Acute respiratory failure with hypoxia Status: Acute Assessment and Plan: Acute worsening of hypoxia and respiratory distress post EGD and colonoscopy. CT showed Extensive bilateral pulmonary infiltrates/consolidation, greater on the left. These findings support diagnosis of aspiration pneumonia and sepsis 06/02 hypoxia worsened which could be ARDS from the aspiration plus component of pulmonary edema. patient was given Lasix, IV fluids were discussed but did not have any significant improvement. patient was intubated and placed on mechanical ventilation Continue full mechanical ventilation support to prevent hypoxemia/hypercarbia and end organ damage. ABG revie wed- Currently on 60% FiO2 and 8 of PEEP Chest x-ray- advance ET tube by 3 cm Low tidal volume ventilation strategy to prevent volutrauma Continue bronchodilators continue broad-spectrum antibiotics in the form vancomycin and Zosyn patient not a candidate for diuresis at this time due to severe shock (2) Septic shock: Code(s): A41.9 - Sepsis, unspecified organism; R65.21 - Severe sepsis with septic shock Status: Acute Assessment and Plan: secondary to aspiration pneumonia, sedation, third-spacing she was given IV fluids early in the course but appears to have volume overload now continue Levophed and vasopressin continue hydrocortisone (3) Esophagitis: Code(s): K20.90 - Esophagitis, unspecified without bleeding Status: Acute Assessment and Plan: candidal esophagitis as pathology showed Julianna patient has been started on Diflucan continue PPI (4) Occult blood in stools: Code(s): R19.5 - Other fecal abnormalities Status: Acute Assessment and Plan: patient underwent EGD and colonoscopy and referred to the results above continue PPI polyp was removed and sent for pathology (5) Hypoglycemia: Code(s): E16.2 - Hypoglycemia, unspecified Status: Resolved Assessment and Plan: improved. she is currently NPO and will be started on tube feeds (6) STEVE (acute kidney injury): Code(s): N17.9 - Acute kidney failure, unspecified Status: Acute Assessment and Plan: improved since admission to the hospital urine output is marginal monitor urine output creatinine and electrolytes (7) Anasarca: Code(s): R60.1 - Generalized edema Status: Acute Assessment and Plan: likely secondary to cirrhosis and low albumin level not a candidate for diuresis at this time due to severe septic shock (8) Anemia: Code(s): D64.9 - Anemia, unspecified Status: Acute Assessment and Plan: she was transfuse 1 unit of packed red cells 06/01 transfuse for less than 7 (9) Acidosis: Code(s): E87.2 - Acidosis Status: Acute Assessment and Plan: metabolic acidosis from STEVE, sepsis, hyperchloremia. i will give additional bicarb (10) Electrolyte abnormality: Code(s): E87.8 - Other disorders of electrolyte and fluid balance, not elsewhere classified Status: Acute Assessment and Plan: replace low potassium (11) Coagulopathy: Code(s): D68.9 - Coagulation defect, unspecified Status: Acute Assessment and Plan: INR is 5.5. Was on Eliquis but now complicated by shock may have component of DIC check fibrinogen level (12) Swelling of arm: Code(s): M79.89 - Other specified soft tissue disorders Status: Acute Assessment and Plan: she has swelling of both on the left was worse than right. patient is status post mastectomy on the right and has a port on the left. Will check Doppler of upper extremity to rule out DVT the patient was on anticoagulation prior to this (13) Acute kidney injury: Code(s): N17.9 - Acute kidney failure, unspecified
[2021-06-03] MEDS: FENTANYL 2,500MCG/NS250ML(*CRX 2,500 MCG/250 ML BAG 10 MCG IV CONT (09:47)
[2021-06-03] MEDS: MIDAZOLAM 100MG/NS 100ML(*CRX) 100 MG/100 ML BAG IV CONT (09:48)
[2021-06-03 10:50] LABS: Fibrinogen 170 mg/dl (215-510)
[2021-06-03 11:04] LABS: NT Pro B Type Natriuretic Pept 8800 pg/mL (5-100)
--- NOTE | 2021-06-03 11:27 | PCDIET ---
Nutrition Follow-Up Complete: Nutrition Diagnosis: Underweight related to cancer as evidenced by BMI of 16.6. Nutrition Goal: Intake of at least 75% of meals/supplements. Goal not met, as patient now intubated with plan to begin tube feedings. Recommended Glucerna 1.2 at goal of 40mL/hr x 22 hours/day for 1056kcal, 52g protein and 708mL free water. Suggest 30mL water flush every 4 hours. New goal: Patient to meet estimated nutritional needs. Last recorded weight is 52.9 kg which is increased from last review. Bowel Motility: Last documented BM on 05/31/21 x 4. Labs Reviewed: WBC (40.3), RBC (2.55), Hgb (7.8), Hct (23.8), Glu (156), BUN (19), Cr (1.3), Na (134), Alb (2.5), Yesenia Ca (8.9) Meds Noted: Albuterol, Fentanyl, Diflucan, Solu Cortef, Versed, Levophed, Protonix, Zosyn, Sodium Bicarbonate, Vasopressin, Vancomycin, Calcium Gluconate Additional Notes: No documented skin breakdown. Will continue to monitor with same goal. Nutrition Monitoring and Evaluation: Follow up every Sunday/Sunday.
[2021-06-03] MEDS: NOREPINEPHRINE 8 MG/D5W 250 ML 8 MG/250 ML BAG 46.88 MG IV CONT ×3 (12:10→23:46)
[2021-06-03] MEDS: CALCIUM GLUC 2,000 MG/NS 100ML 2,000 MG/100 ML BAG 100 MG IVPB (12:10)
[2021-06-03 12:21] LABS: Glucose Point of Care 137 mg/dl (65-105)
[2021-06-03 13:51] LABS: Vancomycin Trough 8.1 ug/mL (10.0-20.0)
--- NOTE | 2021-06-03 13:57 | PM.IMPN ---
Progress Note: A&P Assessment and Plan (1) Septic shock: Code(s): A41.9 - Sepsis, unspecified organism; R65.21 - Severe sepsis with septic shock Status: Acute Assessment and Plan: Patient became hypotensive at 67/36 on 05/31. Procalcitonin 0.1. LA 2.1 but climbed to 3.6. EKG no significant change and Trop negative. WBC was normal but climbed to 44K but better today. Treated with IV fluids with improvement but required Levophed. More stable and was able to be weaned off the levophed. Discussed with braille translator and appreciate his input. On IV pressors currently x2 critically ill (2) Acute respiratory failure with hypoxemia: Code(s): J96.01 - Acute respiratory failure with hypoxia Status: Acute Assessment and Plan: Patient was 99% on room air prior to Endoscopy on 05/31 but was noted to be hypoxic in recovery area. CXR showed worsening airspace disease worse on the left. ABG 7.48/27/37 on 7L. Patient was hypothermic as well so Betty Huyolandaer ordered. Concern for aspiration PNA but CXR now more concerning for the development of ARDS. Continue neb treatments. Continue BiPAP and wean as tolerated. BCx NGTD. Continue broad spectrum abx. (3) Hypoglycemia: Code(s): E16.2 - Hypoglycemia, unspecified Status: Resolved Assessment and Plan: Glucose dropped to 22 05/31 most likely related to the sepsis picture. Dextrose started and glucose is better controlled now. She is off all anti hyperglycemic medications. Monitor closely. (4) Pneumonia: Qualifiers: Laterality: unspecified laterality Lung location: unspecified part of lung Pneumonia type: due to unspecified organism Qualified Code(s): J18.9 - Pneumonia, unspecified organism Code(s): J18.9 - Pneumonia, unspecified organism Status: Acute Assessment and Plan: CXR on admission showed airspace opacities in the right mid and lower lung zones as well as a left lower lung zone. CT of the abdomen showed right basilar airspace disease suspicious for pneumonia and small right pleural effusion. Patient was started on levofloxacin. Blood cultures 05/27 negative. Bedside swallow study 05/30 was normal. Patient returned from Endoscopy and was hypoxic. Repeat CXR showed worsening infiltrates and now concerning for ARDS felt related to aspiration event in endoscopy. As above. Abx adjusted. (5) Cirrhosis: Code(s): K74.60 - Unspecified cirrhosis of liver Status: Acute Assessment and Plan: CT scan here showing liver cirrhosis. CT of the abd 10/28/20 did not make mention of cirrhosis but CT scan in June 2020 did show hepatomegaly and probable portal hypertension with cirrhosis. Suspect this is chronic finding. INR was 2.3 on admission related to Eliquis and her cirrhosis. Albumin was 2.7 but dropped to 1.9; Albumin IV given with improvement. Total bili was elevated but stable at the 1.7-2.0 range but now at 3.0. LFTs otherwise normal. Follow. (6) Anemia: Code(s): D64.9 - Anemia, unspecified Status: Acute Assessment and Plan: Patient with a chronic anemia with baseline hemoglobin in the 9-10 range. Hemoglobin however was 8.1 on admission here and dropped to 6.9 (05/29) consistent with acute blood loss anemia. She was on Eliquis which was held. She was guaiac positive. She has previously been diagnosed with pancreas cancer and breast cancer, currently being evaluated by the Dr Gonzales. Patient is supposed to be on the weekly dose of Epogen which was resumed. B12/Folate normal. Fe 21, TIBC 215, 10% Sat. Given 1U PRBC blood transfusion on 05/29/21. A stool occult blood was positive and GI was consulted. EGD 05/31 showing severe diffuse esophagitis and mild duodenitis. Remington showing diverticulosis and a single colon polyp that was removed. Hgb 6.7 yesterday and she received 1U PRBC. Monitor serial HH. (7) Esophagitis: Code(s): K20.90 - Esophagitis, unspecified without blee
[2021-06-03] MEDS: SODIUM BICARBONATE TAB 650 MG TABLET FEED TUBE ×2 (14:06→16:34)
--- NOTE | 2021-06-03 14:22 | WPDGIPROGNO ---
Progress Note: A&P Assessment and Plan (1) Acute respiratory failure with hypoxemia: Code(s): J96.01 - Acute respiratory failure with hypoxia Status: Acute Assessment and Plan: intubated, on pressors and broad spectrum abx she came to hospital with pneumonia and worsening infiltrates last few days egd showed severe esophagitis, bx showed julianna prognosis guarded (also h/o pancreatic cancer) (2) Septic shock: Code(s): A41.9 - Sepsis, unspecified organism; R65.21 - Severe sepsis with septic shock Status: Acute Assessment and Plan: still requiring pressors and intubated, leukocytosis but right now on steroid stress dose given hypotension she is immunocompromised with h/o pancreatic cancer (3) Julianna esophagitis: Code(s): B37.81 - Candidal esophagitis Status: Acute Assessment and Plan: start iv diflucan (4) Cirrhosis: Code(s): K74.60 - Unspecified cirrhosis of liver Status: Acute Assessment and Plan: worsening inr and coagulopathy, could be from septic shock, ? 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 Started on tube feeding by NGT Review of Systems Review of Systems: All systems reviewed & are unremarkable except as noted in HPI and below Exam Const: General: ill appearing chronically Other: sedated and intubated HENMT: General nose exam: Normal nares present Other: ETT Eyes: Pupils: Equal, round and reactive pupils present Neck: Neck: supple Resp: Auscultation: crackles, rhonchi and wheezes Cardio: Rate: regular rate GI: GI Palp: Yes Soft to palpation and No Tenderness to palpation present (GI) Auscultation: normal bowel sounds Skin: General skin exam: no rashes or lesions noted Neuro: Other: sedated Extrem: General: pedal edema Psych: Mental Status: mental status grossly normal Objective Data Vital Signs Vital Signs: Vital Signs - 24 hr 06/02/21 15:00 06/02/21 15:10 06/02/21 16:00 Temperature 96.5 F L Pulse Rate 68 76 71 Respiratory Rate 27 H 42 H 26 H Blood Pressure 105/52 L Pulse Oximetry 98 06/02/21 16:49 06/02/21 18:00 06/02/21 18:38 Temperature 97.1 F L Pulse Rate 69 72 68 Respiratory Rate 26 H Blood Pressure 106/56 L 101/51 L Pulse Oximetry 96 99 06/02/21 19:28 06/02/21 19:38 06/02/21 20:00 Temperature 97.4 F L Pulse Rate 69 69 68 Respiratory Rate 26 H 26 H 26 H Blood Pressure 105/57 L Pulse Oximetry 100 98 06/02/21 20:06 06/02/21 20:08 06/02/21 20:09 Temperature Pulse Rate 68 68 68 Respiratory Rate 26 H 26 H Blood Pressure 101/51 L Pulse Oximetry 98 06/02/21 20:10 06/02/21 20:30 06/02/21 21:53 Temperature Pulse Rate 68 65 65 Respiratory Rate 26 H Blood Pressure 101/51 L 105/57 L Pulse Oximetry 98 98 06/02/21 22:19 06/02/21 22:49 06/02/21 22:54 Temperature Pulse Rate 64 64 64 Respiratory Rate 26 H Blood Pressure Pulse Oximetry 97 96 06/03/21 00:00 06/03/21 01:19 06/03/21 01:27 Temperature 95.9 F L Pulse Rate 63 63 64 Respiratory Rate 26 H 26 H 26 H Blood Pressure 108/54 L Pulse Oximetry 95 95 06/03/21 02:00 06/03/21 03:43 06/03/21 03:57 Temperature 96.9 F L 98.7 F Pulse Rate 64 77 Respiratory Rate 26 H 26 H Blood Pressure 101/54 L 88/43 L Pulse Oximetry 94 93 92 06/03/21 04:00 06/03/21
[2021-06-03] MEDS: PHYTONADIONE 5 MG TABLET 10 MG PO (15:00)
[2021-06-03 17:08] LABS: Glucose Point of Care 176 mg/dl (65-105)
[2021-06-03] MEDS: LATANOPROST 0.005% OP SOLN 2.5 ML BTL 1 DROP EACH EYE (20:41)
[2021-06-03 23:36] LABS: Glucose Point of Care 151 mg/dl (65-105)
[2021-06-04] VITALS (57 sets, daily range): BP systolic 68–117; BP diastolic 23–70; PULSE 66–111; RESP 26; TEMP 35.5–36.6; O2SAT 89–100
[2021-06-04] MEDS: ALBUTEROL SULFATE NEB 2.5 MG/0.5 ML INH 5 MG INHALATION ×4 (02:00→20:41)
[2021-06-04] MEDS: NOREPINEPHRINE 8 MG/D5W 250 ML 8 MG/250 ML BAG 56.25 MG IV CONT ×5 (03:50→21:39)
[2021-06-04] MEDS: EPINEPHrine INJ 1 MG in DEXTROSE 5% IN WATER 250 ML 15.06 MG IV CONT (04:59)
[2021-06-04] MEDS: SODIUM BICARBONATE 8.4% 50 MEQ/50 ML SYRINGE 100 MEQ IV PUSH ×5 (05:00→21:03)
[2021-06-04] MEDS: HYDROCORTISONE SODIUM SUCCINATE 100 MG/2 ML VIAL IV PUSH ×3 (05:08→20:25)
[2021-06-04] MEDS: CENTRAL LINE FLUSH 10 ML IV PUSH ×4 (05:08→20:26)
[2021-06-04 06:13] LABS: Base Excess ABG -16.9 mEq/l (+/-2.0); Carboxyhemoglobin 0.3 % THb (0-2.0); Fractional Inspired Oxygen 55 %; Methemoglobin ABG 0.5 %THb (0-1.5); Oxygen Content ABG 11.1 %vol (16.0-22.0); Oxygen Saturation ABG 93.3 % (95.0-100.0); Oxyhemoglobin 91.6 % THb (90.0-100.0); PO2 ABG 76.7 mmHg (80.0-100.0); PO2 FiO2 Ratio Arterial Blood 1.39 %; Reduced Hemoglobin 7.6 %THb (0-5.0); Total Hemoglobin 8.5 g/dL (12.0-18.0)
[2021-06-04 06:15] LABS: Device VENTILATOR; Modified Allen's Test Unable to perform; Site Drawn RIGHT RADIAL; pH ABG 7.229 (7.350-7.450)
[2021-06-04 06:17] LABS: Arterial Blood Gas PEEP 8 cmH2O; Arterial Blood Gas Tidal Volume 380 ml; Arterial Blood Gas Vent Mode CMV; Arterial Blood Gas Ventilator rate 26 /MIN
[2021-06-04 06:32] LABS: Basophils Absolute Auto 0.2 K/mm3 (0.0-0.1); Basophils Percent Auto 0.4 % (0.2-1.2); Eosinophils Absolute Auto 0.3 K/mm3 (0-0.3); Eosinophils Percent Auto 0.5 % (0-4.4); Hematocrit 24.3 % (37.0-47.0); Hemoglobin 7.5 g/dL (12.0-15.0); Immature Granulocyte Percent A 1.4 % (0-0.5); Immature Platelet Fraction Pct 8.9 % (0.9-11.2); Lymphocytes Absolute Auto 1.27 K/mm3 (0.9-3.2); Lymphocytes Percent Auto 2.5 % (18.3-44.2); Mean Corpuscular HGB Conc 30.9 g/dl (32-36); Mean Corpuscular Hemoglobin 32.8 pg (26-34); Mean Corpuscular Volume 106.1 fl (80-100); Mean Platelet Volume 11.9 fl (7.4-10.4); Neutrophils Absolute Auto 46.4 K/mm3 (1.3-6.7); Neutrophils Percent Auto 93.2 % (45.5-73.1); Platelet Count Result 113 k/mm3 (150-375); Red Blood Count 2.29 M/mm3 (4.2-5.4); Red Cell Distribution Width 20.7 % (11.5-14.5); White Blood Count 49.8 K/mm3 (4.5-10.0)
[2021-06-04 06:44] LABS: Albumin Level 2.5 g/dL (3.5-5.1); Alkaline Phosphatase 57 U/L (38-126); Anion Gap 27 mmol/L (8-16); Bilirubin,Total 4.8 mg/dL (0.2-1.3); Blood Urea Nitrogen 23 mg/dL (7-17); Calcium 8.9 mg/dL (8.4-10.2); Carbon Dioxide 8 mmol/L (22-30); Chloride 100 mmol/L (98-107); Estimated CRCL calculation 15 ml/min; Estimated Glomerular Filt Rate 20; Glucose 152 mg/dL (65-110); Potassium 4.8 mmol/L (3.4-5.0); Prothrombin Time 102.7 Seconds (11.1-14.7); Sodium 135 mmol/L (137-145)
[2021-06-04 06:48] LABS: Alanine Aminotransferase 469 U/L (4-35); Aspartate Amino Transferase 1378 U/L (14-36)
[2021-06-04 07:15] LABS: Platelet Estimate Decreased (Adequate)
[2021-06-04 07:16] LABS: Acanthocytes 2+ (NORMAL); Burr Cells 1+ (NORMAL); Ovalocytes 1+ (NORMAL)
[2021-06-04 07:31] LABS: INR 14.8
[2021-06-04] MEDS: VASOPRESSIN INJ 100 UNITS in DEXTROSE 5% 95 ML IV CONT (07:55)
[2021-06-04] MEDS: MINERAL OIL/WHITE PETROLATUM OINTMENT 1 APPLIC EACH EYE ×2 (08:19→20:26)
[2021-06-04] MEDS: PANTOPRAZOLE SODIUM IV 40 MG VIAL IV PUSH ×2 (08:19→20:26)
[2021-06-04] MEDS: SODIUM BICARBONATE TAB 650 MG TABLET FEED TUBE ×3 (08:28→16:50)
[2021-06-04] MEDS: FLUCONAZOLE 100 MG/NACL 50 ML 100 MG/50 ML BTL 50 MG IVPB (09:29)
--- NOTE | 2021-06-04 10:09 | WPDINTPN ---
Progress Note: A&P Assessment and Plan (1) Acute respiratory failure with hypoxemia: Code(s): J96.01 - Acute respiratory failure with hypoxia Status: Acute Assessment and Plan: Acute worsening of hypoxia and respiratory distress post EGD and colonoscopy. CT showed Extensive bilateral pulmonary infiltrates/consolidation, greater on the left. These findings support diagnosis of aspiration pneumonia and sepsis 06/02 hypoxia worsened which could be ARDS from the aspiration plus component of pulmonary edema. patient was given Lasix, IV fluids were discontinue but did not have any significant improvement. patient was intubated and placed on mechanical ventilation Continue full mechanical ventilation support to prevent hypoxemia/hypercarbia and end organ damage. ABG reviewed- Currently on 60% FiO2 and 8 of PEEP Chest x-ray- advance ET tube by 2 cm Low tidal volume ventilation strategy to prevent volutrauma Continue bronchodilators continue broad-spectrum antibiotics in the form vancomycin and Zosyn patient not a candidate for diuresis at this time due to severe shock (2) Septic shock: Code(s): A41.9 - Sepsis, unspecified organism; R65.21 - Severe sepsis with septic shock Status: Acute Assessment and Plan: secondary to aspiration pneumonia, sedation, third-spacing she was given IV fluids early in the course but appears to have volume overload now continue epinephrine, Levophed and vasopressin continue hydrocortisone (3) Esophagitis: Code(s): K20.90 - Esophagitis, unspecified without bleeding Status: Acute Assessment and Plan: candidal esophagitis as pathology showed Julianna patient has been started on Diflucan continue PPI (4) Occult blood in stools: Code(s): R19.5 - Other fecal abnormalities Status: Acute Assessment and Plan: patient underwent EGD and colonoscopy and referred to the results above continue PPI polyp was removed and sent for pathology (5) Hypoglycemia: Code(s): E16.2 - Hypoglycemia, unspecified Status: Resolved Assessment and Plan: improved. Continue tube feeding (6) STEVE (acute kidney injury): Code(s): N17.9 - Acute kidney failure, unspecified Status: Acute Assessment and Plan: improved since admission to the hospital but later deteriorated again once patient went into respiratory failure and shock urine output is poor IV bicarb for metabolic acidosis monitor urine output creatinine and electrolytes (7) Anasarca: Code(s): R60.1 - Generalized edema Status: Acute Assessment and Plan: likely secondary to cirrhosis and low albumin level not a candidate for diuresis at this time due to severe septic shock (8) Anemia: Code(s): D64.9 - Anemia, unspecified Status: Acute Assessment and Plan: she was transfuse 1 unit of packed red cells 06/01 transfuse for less than 7 (9) Acidosis: Code(s): E87.2 - Acidosis Status: Acute Assessment and Plan: metabolic acidosis from STEVE, sepsis, hyperchloremia. i will give additional bicarb today (10) Coagulopathy: Code(s): D68.9 - Coagulation defect, unspecified Status: Acute Assessment and Plan: INR is 14.5. She Was on Eliquis but now complicated by shock may have component of DIC She was given vitamin K yesterday and I will give her 3 units of FFP today (11) Swelling of arm: Code(s): M79.89 - Other specified soft tissue disorders Status: Acute Assessment and Plan: she has swelling of both on the left was worse than right. patient is status post mastectomy on the right and has a port on the left. Bilateral upper extremity Doppler negative for DVT Additional Plan DVT prophylaxis - SCDs Stress ulcer prophylaxis - PPI Nutrition - NPO Code Status - 06/01 I discussed code status with patient and she states she wants to be DNR but is
[2021-06-04] MEDS: MIDAZOLAM 100MG/NS 100ML(*CRX) 100 MG/100 ML BAG IV CONT (11:51)
[2021-06-04] MEDS: FENTANYL 2,500MCG/NS250ML(*CRX 2,500 MCG/250 ML BAG IV CONT (11:53)
[2021-06-04 12:31] LABS: Glucose Point of Care 153 mg/dl (65-105)
[2021-06-04] MEDS: EPINEPHrine INJ 1 MG in DEXTROSE 5% IN WATER 250 ML 30.12 MG IV CONT (13:02)
--- NOTE | 2021-06-04 13:41 | PM.IMPN ---
Progress Note: A&P Assessment and Plan (1) Septic shock: Code(s): A41.9 - Sepsis, unspecified organism; R65.21 - Severe sepsis with septic shock Status: Acute Assessment and Plan: Patient became hypotensive at 67/36 on 05/31. Procalcitonin 0.1. LA 2.1 but climbed to 3.6. EKG no significant change and Trop negative. WBC was normal but climbed to 44K but better today. Treated with IV fluids with improvement but required Levophed. More stable and was able to be weaned off the levophed. Discussed with population health coach and appreciate his input. On IV pressors currently x 3 critically ill also on hydrocortisone (2) Acute respiratory failure with hypoxemia: Code(s): J96.01 - Acute respiratory failure with hypoxia Status: Acute Assessment and Plan: Patient was 99% on room air prior to Endoscopy on 05/31 but was noted to be hypoxic in recovery area. CXR showed worsening airspace disease worse on the left. ABG 7.48/27/37 on 7L. Patient was hypothermic as well so Betty Hugger ordered. Concern for aspiration PNA but CXR now more concerning for the development of ARDS. Continue neb treatments. Continue BiPAP and wean as tolerated. BCx NGTD. Continue broad spectrum abx. (3) Hypoglycemia: Code(s): E16.2 - Hypoglycemia, unspecified Status: Resolved Assessment and Plan: Glucose dropped to 22 05/31 most likely related to the sepsis picture. Dextrose started and glucose is better controlled now. She is off all anti hyperglycemic medications. Monitor closely. (4) Pneumonia: Qualifiers: Laterality: unspecified laterality Lung location: unspecified part of lung Pneumonia type: due to unspecified organism Qualified Code(s): J18.9 - Pneumonia, unspecified organism Code(s): J18.9 - Pneumonia, unspecified organism Status: Acute Assessment and Plan: CXR on admission showed airspace opacities in the right mid and lower lung zones as well as a left lower lung zone. CT of the abdomen showed right basilar airspace disease suspicious for pneumonia and small right pleural effusion. Patient was started on levofloxacin. Blood cultures 05/27 negative. Bedside swallow study 05/30 was normal. Patient returned from Endoscopy and was hypoxic. Repeat CXR showed worsening infiltrates and now concerning for ARDS felt related to aspiration event in endoscopy. As above. Abx adjusted. (5) Cirrhosis: Code(s): K74.60 - Unspecified cirrhosis of liver Status: Acute Assessment and Plan: CT scan here showing liver cirrhosis. CT of the abd 10/28/20 did not make mention of cirrhosis but CT scan in June 2020 did show hepatomegaly and probable portal hypertension with cirrhosis. Suspect this is chronic finding. INR was 2.3 on admission related to Eliquis and her cirrhosis. Albumin was 2.7 but dropped to 1.9; Albumin IV given with improvement. Total bili was elevated but stable at the 1.7-2.0 range but now at 3.0. LFTs otherwise normal. Follow. (6) Anemia: Code(s): D64.9 - Anemia, unspecified Status: Acute Assessment and Plan: Patient with a chronic anemia with baseline hemoglobin in the 9-10 range. Hemoglobin however was 8.1 on admission here and dropped to 6.9 (05/29) consistent with acute blood loss anemia. She was on Eliquis which was held. She was guaiac positive. She has previously been diagnosed with pancreas cancer and breast cancer, currently being evaluated by the Dr Gonzales. Patient is supposed to be on the weekly dose of Epogen which was resumed. B12/Folate normal. Fe 21, TIBC 215, 10% Sat. Given 1U PRBC blood transfusion on 05/29/21. A stool occult blood was positive and GI was consulted. EGD 05/31 showing severe diffuse esophagitis and mild duodenitis. Mora showing diverticulosis and a single colon polyp that was removed. Hgb 6.7 and she received 1U PRBC. Monitor serial HH. (7) Esophagitis: Code(s): K20.90 - Esophagitis, unspecifie
[2021-06-04 17:11] LABS: Glucose Point of Care 141 mg/dl (65-105)
[2021-06-04] MEDS: EPINEPHrine INJ 1 MG in DEXTROSE 5% IN WATER 250 ML 75.3 MG IV CONT (19:52)
[2021-06-04] MEDS: LATANOPROST 0.005% OP SOLN 2.5 ML BTL 1 DROP EACH EYE (20:26)
[2021-06-04 21:27] LABS: Magnesium 2.4 mg/dL (1.6-2.3)
[2021-06-04 22:05] LABS: Anion Gap 34 mmol/L (8-16); Blood Urea Nitrogen 24 mg/dL (7-17); Calcium 8.5 mg/dL (8.4-10.2); Carbon Dioxide 12 mmol/L (22-30); Chloride 93 mmol/L (98-107); Estimated CRCL calculation 12 ml/min; Estimated Glomerular Filt Rate 15; Glucose 157 mg/dL (65-110); Potassium 4.6 mmol/L (3.4-5.0); Sodium 139 mmol/L (137-145)
[2021-06-04 23:10] LABS: Glucose Point of Care 163 mg/dl (65-105)
[2021-06-04] MEDS: EPINEPHrine INJ 1 MG in DEXTROSE 5% IN WATER 250 ML 105.42 MG IV CONT (23:12)
[2021-06-05] VITALS (12 sets, daily range): BP systolic 53–108; BP diastolic 11–68; PULSE 0–112; RESP 0–26; TEMP 37.1–37.2; O2SAT 57–93
[2021-06-05] MEDS: NOREPINEPHRINE 8 MG/D5W 250 ML 8 MG/250 ML BAG 56.25 MG IV CONT ×2 (01:07→05:31)
[2021-06-05] MEDS: EPINEPHrine INJ 1 MG in DEXTROSE 5% IN WATER 250 ML 150.6 MG IV CONT ×3 (01:08→04:00)
--- NOTE | 2021-06-05 01:10 | PC.NURSE ---
Daylight Savings Time For Daylight Savings Time Ending in the Fall - Clocks are moved back. For Daylight Savings Time Beginning in the Spring - Clocks are moved ahead. For [facility], the time of change occurs at 0200 hrs. Time is taken from the dining car server. This entry on the patient's chart recognizes the change in time reflected during documentation. Example: 2 entries for vital signs may be charted for 0200 hrs.
[2021-06-05] MEDS: ALBUTEROL SULFATE NEB 2.5 MG/0.5 ML INH 5 MG INHALATION (02:47)
[2021-06-05 05:17] LABS: Alveolar/Arterial O2 Gradient 454.2 mmHg; Base Excess ABG -26.2 mEq/l (+/-2.0); Carboxyhemoglobin 0.3 % THb (0-2.0); Fractional Inspired Oxygen 80 %; HCO3 ABG 4.6 mEq/l (22.0-26.0); Methemoglobin ABG 0.7 %THb (0-1.5); Oxygen Content ABG 7.4 %vol (16.0-22.0); Oxygen Saturation ABG 88.5 % (95.0-100.0); Oxyhemoglobin 90.9 % THb (90.0-100.0); PO2 FiO2 Ratio Arterial Blood 1.13 %; Reduced Hemoglobin 8.1 %THb (0-5.0)
[2021-06-05 05:18] LABS: pH ABG 6.879 (7.350-7.450)
[2021-06-05 05:19] LABS: Modified Allen's Test Pass; Site Drawn RIGHT RADIAL; Total Hemoglobin 5.6 g/dL (12.0-18.0)
[2021-06-05 05:20] LABS: Arterial Blood Gas Ventilator rate 26 /MIN; Device VENTILATOR
[2021-06-05 05:21] LABS: Arterial Blood Gas PEEP 8 cmH2O; Arterial Blood Gas Tidal Volume 380 ml; Arterial Blood Gas Vent Mode CMV
[2021-06-05] MEDS: SODIUM BICARBONATE 8.4% 50 MEQ/50 ML SYRINGE 100 MEQ IV PUSH ×3 (05:32→07:53)
[2021-06-05] MEDS: HYDROCORTISONE SODIUM SUCCINATE 100 MG/2 ML VIAL IV PUSH (05:32)
[2021-06-05] MEDS: CENTRAL LINE FLUSH 10 ML IV PUSH (05:33)
[2021-06-05] MEDS: EPINEPHrine INJ 4 MG in DEXTROSE 5% IN WATER 250 ML 38.1 MG IV CONT (05:37)
[2021-06-05 05:58] LABS: Basophils Absolute Auto 0.1 K/mm3 (0.0-0.1); Basophils Percent Auto 0.1 % (0.2-1.2); Immature Granulocyte Absolute 3.27 K/mm3 (0.00-0.031); Immature Granulocyte Percent A 7.9 % (0-0.5); Lymphocytes Absolute Auto 1.16 K/mm3 (0.9-3.2); Lymphocytes Percent Auto 2.8 % (18.3-44.2); Mean Corpuscular HGB Conc 29.4 g/dl (32-36); Mean Corpuscular Hemoglobin 33.9 pg (26-34); Mean Corpuscular Volume 115.3 fl (80-100); Mean Platelet Volume 12.4 fl (7.4-10.4); Monocytes Absolute Auto 1.5 K/mm3 (0.1-0.6); Monocytes Percent Auto 3.6 % (2.6-8.5); Neutrophils Absolute Auto 35.2 K/mm3 (1.3-6.7); Neutrophils Percent Auto 85.6 % (45.5-73.1); Nucleated Red Blood Cells Absolute Auto 3.4 K/mm3 (0.0-0.012); Nucleated Red Blood Cells Perc 8.2 % (0.0-0.2); Platelet Count Result 49 k/mm3 (150-375); Red Blood Count 1.24 M/mm3 (4.2-5.4); Red Cell Distribution Width 22.2 % (11.5-14.5); White Blood Count 41.2 K/mm3 (4.5-10.0)
[2021-06-05 06:17] LABS: Albumin Level 1.8 g/dL (3.5-5.1); Alkaline Phosphatase 90 U/L (38-126); Anion Gap 34 mmol/L (8-16); Bilirubin,Total 4.9 mg/dL (0.2-1.3); Blood Urea Nitrogen 23 mg/dL (7-17); Calcium 8.1 mg/dL (8.4-10.2); Carbon Dioxide 13 mmol/L (22-30); Chloride 88 mmol/L (98-107); Glucose 215 mg/dL (65-110); Hematocrit 14.3 % (37.0-47.0); Hemoglobin 4.2 g/dL (12.0-15.0); Potassium 5.5 mmol/L (3.4-5.0); Sodium 135 mmol/L (137-145)
[2021-06-05 06:29] LABS: Platelet Estimate Decreased (Adequate); Poikilocytosis 2+ (NORMAL)
[2021-06-05 06:30] LABS: Acanthocytes 1+ (NORMAL); Anisocytosis 1+ (NORMAL); Helmet Cells 1+ (NORMAL); Schistocytes 1+ (NORMAL)
[2021-06-05 06:56] LABS: Alanine Aminotransferase 1169 U/L (4-35)
[2021-06-05 08:03] LABS: Aspartate Amino Transferase 5228 U/L (14-36)
[2021-06-05 08:24] LABS: Estimated CRCL calculation 11 ml/min; Estimated Glomerular Filt Rate 14
[2021-06-05] MEDS: MORPHINE SULFATE INJ (*CRX) 10 MG/ML AMP 5 MG IV PUSH (09:05)
--- NOTE | 2021-06-05 09:43 | WPDINTPN ---
Progress Note: A&P Assessment and Plan (1) Acute respiratory failure with hypoxemia: Code(s): J96.01 - Acute respiratory failure with hypoxia Status: Acute (2) Septic shock: Code(s): A41.9 - Sepsis, unspecified organism; R65.21 - Severe sepsis with septic shock Status: Acute (3) Esophagitis: Code(s): K20.90 - Esophagitis, unspecified without bleeding Status: Acute (4) Occult blood in stools: Code(s): R19.5 - Other fecal abnormalities Status: Acute (5) Hypoglycemia: Code(s): E16.2 - Hypoglycemia, unspecified Status: Resolved (6) STEVE (acute kidney injury): Code(s): N17.9 - Acute kidney failure, unspecified Status: Acute (7) Anasarca: Code(s): R60.1 - Generalized edema Status: Acute (8) Anemia: Code(s): D64.9 - Anemia, unspecified Status: Acute (9) Acidosis: Code(s): E87.2 - Acidosis Status: Acute (10) Coagulopathy: Code(s): D68.9 - Coagulation defect, unspecified Status: Acute (11) Swelling of arm: Code(s): M79.89 - Other specified soft tissue disorders Status: Acute Additional Plan Patient deteriorated overnight with increased pressor requirement. Her hemoglobin dropped and I ordered 2 units of PRBC and also additional bicarb was given. Nurses were unable to obtain noninvasive blood pressure consistently. Patient's was called multiple times overnight but he did not answer his phone called back. I called patient's and then patient's daughter this morning. I updated patient's daughter with overnight events and deterioration of patient's hemodynamics. I also discussed placing arterial line for obtaining better blood pressure monitoring. She told me that she does not think the patient would want any further invasive procedures or testing at this time. She stated that they were prepared to proceed with comfort care at this time she requested not to further escalate her care and continue current therapy until she is able to speak to patient's . I canceled the blood transfusion. Patient called back within 10 minutes and requested the same thing. He requested that the patient be kept on current status until he is able to reach to the hospital and say her goodbye and then would like to proceed with palliative extubation and comfort care only. Once family arrived I spoke to them and they were able to visit with patient. After few minutes they requested the patient be extubated palliatively. Patient was already DNR. Patient was given additional dose of morphine and was palliatively extubated and she quickly while family was at bedside Total Critical Care Time - 30 minutes Due to a high probability of clinically significant, life threatening deterioration, the patient required my highest level of preparedness to intervene emergently and I personally spent this critical care time directly and personally managing the patient. This critical care time included obtaining a history; examining the patient; pulse oximetry; ordering and review of studies; arranging urgent treatment with development of a management plan; evaluation of patient's response to treatment; frequent reassessment; and discussions with other providers. It was exclusive of separately billable procedures and treating other patients and teaching time. Please see Assessment and Plan section and the rest of the note for further information on patient assessment and treatment Subjective Date/time seen: 06/05/21 0705 Overnight events reviewed. Patient continued to deteriorate hemodynamically with increased pressor requirement. She was on maximum recommended protocol dose of 3 vasopressors this morning. She poor urine output. Lab work showed drop in hemoglobin to 4.2 and severe metabolic acidosis. I was called by nurse by phone overnight. She was given additional dose of bicarb and packed red cells ord
--- NOTE | 2021-06-05 10:16 | P.DN_ITS ---
Discharge Summary Date and Time Date of : 06/05/21 Time of : 09:17 Provider Pronounced By: Ba Blackman Probable Cause of Probable Cause of : Septic shock Pneumonia Summary Hospital Course: HPI:his is 75-year-old female with past medical history significant for type 2 diabetes mellitus, history of pancreatic cancer, history of breast cancer, history of pulmonary embolism, dyslipidemia, pancreatic insufficiency, hypertension. Patient presented to the emergency room after family concerns due to the patient's altered mental status, confusion, not making sense, decreased oral intake for the last 2 days or so. Patient is unable to give much history due to her confusion denies any issues at the time of my visit but stated that was hungry and wanted something to eat. Preliminary workup was significant for lung infiltrate CBC was significant for a white blood cell count of 24,000, a hemoglobin of 8.1 MCV of 105 a creatinine of 1.4. Patient has been admitted for further assessment evaluation and treatment. Hospital course: Subsequent to the admission her hemoglobin dropped to 6.9 needing transfusion. Stool occult blood was done which came back positive and hence GI was consulted. She had a history of pancreatic cancer status post Whipple procedure 7 years ago with chemo radiation, breast cancer status post mastectomy. Oncology was also consulted for her anemia. GI took her for EGD and colonoscopy. EGD showed esophagitis and duodenitis. Colonoscopy showed colonic polyp and diverticulosis without perforation or abscess without bleeding. Postprocedure she was noted to be hypoxic in recovery. Chest x-ray showed development on moderate left perihilar airspace disease and persistent small right-sided pneumonia. She required high level of oxygen. Patient became hypothermic and hence he bear hugger was started. Concern for aspiration pneumonia was there. She also became hypotensive and hence septic shock was consider she was moved to the ICU and further treatment was done with help of weaver tire cord in the ICU setting she was placed on IV pressors to keep her blood pressure up along with fluid resuscitation as needed. She subsequently needed to be placed on BiPAP due to her report respiratory status and subsequently needed to be intubated and placed on mechanical ventilation. Her condition deteriorated with worsening renal failure worsening coagulopathy likely due to DIC and hence discussion with family was made for comfort based care. After decision of comfort care patient was palliatively extubated. She quickly post extubation. Necessary arrangements were made with the help of nursing staff. She was pronounced on 06/05/2021 at 9:17 a.m. Additional Data Confirmation of as documented by pronouncing clinician: Pupillary Reflex, Palpable Pulses, Response to Stimuli, Heart Tones and Breath Sounds Name of Provider Notified: Dr. Rasheed Time Provider Notified: 09:20 Provider Requests Autopsy: No Family Requests Autopsy: No Screw Machine Operator Swiss Type Notified: Yes Date [facility] Notified of : 06/05/21 Time [facility] Notified of : 09:34
== END 2021-06-05 09:17 | disposition expired | DRG 871 ==
LOC: ANHED 17:46 → ANH3MED 21:30 → ANHICU 06-02 18:58 → ANH3MED 06-06 16:00 → ANHICU 06-06 16:00 → ANHIMU 06-06 16:00
PROVIDERS: Emergency Medicine; Internal Medicine; Internal Medicine Gastroenterology; Physician Assistant; Admitting Provider Internal Medicine; Emergency Provider Emergency Medicine; PCP Internal Medicine; Visit Provider Internal Medicine
PROC: 0DJ08ZZ Inspection of Upper Intestinal Tract, Via Natural or Artificial Opening Endoscopic (ICD-10-PCS; CPT 43235; principal; 2021-05-31 12:30)
DX: A41.9 Sepsis, unspecified organism (principal); J18.9 Pneumonia, unspecified organism; J96.01 Acute respiratory failure with hypoxia; R65.21 Severe sepsis with septic shock; J69.0 Pneumonitis due to inhalation of food and vomit; N17.9 Acute kidney failure, unspecified; E87.2 Acidosis; K56.7 Ileus, unspecified; D68.9 Coagulation defect, unspecified; Z66 Do not resuscitate; Z51.5 Encounter for palliative care; I10 Essential (primary) hypertension; Z85.07 Personal history of malignant neoplasm of pancreas; Z85.3 Personal history of malignant neoplasm of breast; Z86.711 Personal history of pulmonary embolism; E78.5 Hyperlipidemia, unspecified; G47.00 Insomnia, unspecified; E55.9 Vitamin D deficiency, unspecified; E11.9 Type 2 diabetes mellitus without complications; Z79.4 Long term (current) use of insulin; H40.9 Unspecified glaucoma; K86.89 Other specified diseases of pancreas; E86.0 Dehydration; E83.42 Hypomagnesemia; Z92.21 Personal history of antineoplastic chemotherapy; Z90.10 Acquired absence of unspecified breast and nipple; D50.0 Iron deficiency anemia secondary to blood loss (chronic); K74.60 Unspecified cirrhosis of liver; K20.90 Esophagitis, unspecified without bleeding; E27.8 Other specified disorders of adrenal gland; E11.649 Type 2 diabetes mellitus with hypoglycemia without coma; E87.8 Other disorders of electrolyte and fluid balance, not elsewhere classified; K29.80 Duodenitis without bleeding; K57.90 Diverticulosis of intestine, part unspecified, without perforation or abscess without bleeding; K63.5 Polyp of colon; M79.89 Other specified soft tissue disorders; R19.5 Other fecal abnormalities
CPT/HCPCS: 36415; 36430; 36600; 70450; 71045; 71046; 71250; 74176; 74177; 76856; 80048; 80053; 80202; 81001; 82140; 82274; 82375; 82607; 82728; 82746; 82803; 82805; 82948; 83050; 83540; 83550; 83605; 83690; 83735; 83880; 84100; 84145; 84443; 84484; 85014; 85018; 85025; 85055; 85384; 85610; 85730; 86140; 86592; 86850; 86900; 86901; 86920; 87040; 87086; 88305; 88312; 92610; 93005; 93308; 93970; 94002; 94003; 94640; 96361; 96365; 96366; 96367; 96372; 97161; 97165; 99285; A9270; C1751; C9113; G0378; J0171; J0330; J0610; J1450; J1720; J1756; J1815; J1940; J1956; J2250; J2270; J2405; J2543; J2704; J3010; J3370; J3475; J3480; J7030; J7040; J7050; J7060; J7070; J7120; P9016; P9017; P9047; Q5105; Q9967